=== PATIENT | female | born 1945 | race Hispanic/Latino ===

== ENCOUNTER 2018-09-01 02:00 | Emergency (ER) | payer MEDICARE ==
[~2018-09-01 02:00] MED LIST: AMLO5TAB7 PO; ARIP2TAB11 PO; BENA40TA9 PO; CHOL231P PO; ESCI20TA36 PO; GLIP-162 PO; LEVO200 PO; LINA5TAB PO; LOPE2CAP PO; METR-224 PO; VANC250C5 PO
[2018-09-01 03:15] LABS: APPEARANCE,URINE Cloudy (CLEAR); BILIRUBIN,URINE Negative (NEGATIVE); COLOR,URINE Yellow (YELLOW); GLUCOSE, URINE (UA) Negative (NEGATIVE); KETONES,URINE Negative (NEGATIVE); LEUKOCYTE ESTERASE ,URINE Large (NEGATIVE); NITRATE,URINE Negative (NEGATIVE); OCCULT BLOOD,URINE Negative (NEGATIVE); PROTEIN,URINE Negative (NEGATIVE)
[2018-09-01 03:28] LABS: BACTERIA,URINE Moderate /HPF (None Seen); MUCUS,URINE Moderate LPF (None Seen); SQUAMOUS EPITHELIAL CELL,UR Few /HPF (0-2)
[2018-09-01 03:31] LABS: BASOPHILS % (AUTO) 0.7 % (0.0-5.0); EOSINOPHILS % (AUTO) 3.2 % (0.0-8.0); HEMATOCRIT 30.4 % (36-48); LYMPHOCYTES % (AUTO) 38.5 % (21.0-51.0); MEAN CORPUSCULAR HGB CONC 32.7 g/dL (32.0-36.0); MEAN CORPUSCULAR VOLUME 88.7 fL (79-99); MONOCYTES % (AUTO) 9.1 % (3.0-13.0); NEUTROPHILS % (AUTO) 48.5 % (40.0-77.0); NUCLEATED RED BLOOD CELLS 0.1 % (0.0-0.19); PLATELET COUNT (AUTO) 151 K/uL (130-400); RED BLOOD CELL COUNT(AUTO) 3.43 MIL/uL (4.00-5.50); RED CELL DISTRIBUTION WIDTH 14.5 % (11.0-15.5); WHITE BLOOD COUNT (AUTO) 7.9 K/uL (4.8-10.8)
[2018-09-01] MEDS ORDERED: KETOROLAC TROMETHAMINE 15MG/ML ONE (03:36)
[2018-09-01 03:37] LABS: CREATININE 0.8 mg/dL (0.5-1.5); POTASSIUM 4.7 mmol/L (3.5-5.1)
[2018-09-01] MEDS ORDERED: METHYLPREDNISOLONE SOD SUCC 125MG/2ML VIAL ONE (03:37)
[2018-09-01 03:44] LABS: ALBUMIN 2.9 g/dL (3.5-5.0); BILIRUBIN,TOTAL 0.2 mg/dL (0.2-1.0); TOTAL PROTEIN, SERUM 7.8 g/dL (6.0-8.3)
[2018-09-01 03:45] LABS: INR 1.11 (0.85-1.15); PROTHROMBIN TIME 11.6 SEC (9.6-11.6)
== END 2018-09-01 04:37 | disposition home or self-care (01) ==
LOC: EDH 02:00
DX: M70.72 Other bursitis of hip, left hip (principal); M70.71 Other bursitis of hip, right hip; M54.5 Low back pain; E11.9 Type 2 diabetes mellitus without complications; I10 Essential (primary) hypertension; E07.9 Disorder of thyroid, unspecified; Z90.49 Acquired absence of other specified parts of digestive tract; Z90.710 Acquired absence of both cervix and uterus; Z88.2 Allergy status to sulfonamides; Z88.8 Allergy status to other drugs, medicaments and biological substances
CPT/HCPCS: 36415; 72100; 72170; 80053; 81001; 82550; 85025; 85610; 85730; 93005; 96374; 96375; 99284; A4218; J1885; J2930

== ENCOUNTER 2018-10-07 22:41 | Emergency (ER) | payer MEDICARE ==
[~2018-10-07 22:41] MED LIST changes: -AMLO5TAB7 PO; +AMLO5TAB9 PO; +METR-172 PO; -METR-224 PO
[2018-10-07] MEDS ORDERED: HYDROCODONE/ACETAMINOPHEN 10/325 MG TAB ONE (23:09)
== END 2018-10-07 23:16 | disposition home or self-care (01) ==
LOC: EDH 22:41
DX: E11.40 Type 2 diabetes mellitus with diabetic neuropathy, unspecified (principal); I10 Essential (primary) hypertension; E07.9 Disorder of thyroid, unspecified; Z88.2 Allergy status to sulfonamides; Z88.8 Allergy status to other drugs, medicaments and biological substances; Z90.710 Acquired absence of both cervix and uterus; Z98.890 Other specified postprocedural states
CPT/HCPCS: 99282

== ENCOUNTER 2019-10-13 18:12 | Emergency (ER) | payer MEDICARE ==
[~2019-10-13 18:12] MED LIST changes: -ARIP2TAB11 PO; +ARIP2TAB20 PO; -VANC250C5 PO; +VANC250C6 PO
[2019-10-13] MEDS ORDERED: MORPHINE SULFATE 4 MG/1ML SYG ONE (18:58)
[2019-10-13] MEDS ORDERED: ONDANSETRON HCL 4 MG/2 ML VIAL ONE (18:58)
[2019-10-13 19:28] LABS: BASOPHILS % (AUTO) 0.3 % (0.0-5.0); EOSINOPHILS % (AUTO) 1.7 % (0.0-8.0); HEMATOCRIT 34.9 % (36-48); LYMPHOCYTES % (AUTO) 34.7 % (21.0-51.0); MEAN CORPUSCULAR HGB CONC 31.5 g/dL (32.0-36.0); MEAN CORPUSCULAR VOLUME 85.7 fL (79-99); MONOCYTES % (AUTO) 7.3 % (3.0-13.0); NEUTROPHILS % (AUTO) 55.6 % (40.0-77.0); PLATELET COUNT (AUTO) 202 K/uL (130-400); RED BLOOD CELL COUNT(AUTO) 4.07 MIL/uL (4.00-5.50); RED CELL DISTRIBUTION WIDTH 13.6 % (11.0-15.5); WHITE BLOOD COUNT (AUTO) 9.5 K/uL (4.8-10.8)
[2019-10-13 19:36] LABS: INR 1.08 (0.85-1.15); PARTIAL THROMBOPLASTIN TIME 27.6 SEC (26.3-35.5); PROTHROMBIN TIME 11.3 SEC (9.6-11.6)
[2019-10-13 19:38] LABS: CREATININE 0.9 mg/dL (0.5-1.5); POTASSIUM 3.7 mmol/L (3.5-5.1)
[2019-10-13 19:43] LABS: ALBUMIN 3.3 g/dL (3.5-5.0); BILIRUBIN,TOTAL 0.6 mg/dL (0.2-1.0); TOTAL PROTEIN, SERUM 8.5 g/dL (6.0-8.3)
[2019-10-13] MEDS ORDERED: IOHEXOL-350 75 ML VIAL IV ONE (19:50)
[2019-10-13] MEDS ORDERED: FAMOTIDINE/PF 20 MG/2 ML VIAL IV ONE (20:58)
[2019-10-13] MEDS ORDERED: LABETALOL HCL 5 MG/ML 20ML VIAL IV ONE (20:58)
== END 2019-10-13 21:19 | disposition home or self-care (01) ==
LOC: EDH 18:12
DX: R10.10 Upper abdominal pain, unspecified (principal); I10 Essential (primary) hypertension; E11.9 Type 2 diabetes mellitus without complications; Z88.2 Allergy status to sulfonamides; Z88.8 Allergy status to other drugs, medicaments and biological substances; Z90.49 Acquired absence of other specified parts of digestive tract; Z90.710 Acquired absence of both cervix and uterus
CPT/HCPCS: 36415; 74177; 76705; 80053; 82550; 83690; 84484; 85025; 85610; 85730; 93005; 96374; 96375; 99285; J2270; J2405; J3490 ×2; Q9967

== ENCOUNTER 2019-10-18 16:49 | Emergency (ER) | payer MEDICARE ==
[2019-10-18 17:23] LABS: BASOPHILS % (AUTO) 0.4 % (0.0-5.0); EOSINOPHILS % (AUTO) 2.5 % (0.0-8.0); HEMATOCRIT 33.9 % (36-48); LYMPHOCYTES % (AUTO) 21.9 % (21.0-51.0); MEAN CORPUSCULAR HEMOGLOBIN 27.5 pg (27.0-33.0); MEAN CORPUSCULAR HGB CONC 32.2 g/dL (32.0-36.0); MEAN CORPUSCULAR VOLUME 85.6 fL (79-99); MONOCYTES % (AUTO) 7.3 % (3.0-13.0); NEUTROPHILS % (AUTO) 67.5 % (40.0-77.0); PLATELET COUNT (AUTO) 195 K/uL (130-400); RED BLOOD CELL COUNT(AUTO) 3.96 MIL/uL (4.00-5.50); RED CELL DISTRIBUTION WIDTH 13.6 % (11.0-15.5); WHITE BLOOD COUNT (AUTO) 10.1 K/uL (4.8-10.8)
[2019-10-18 17:26] LABS: CREATININE 0.8 mg/dL (0.5-1.5); POTASSIUM 5.1 mmol/L (3.5-5.1)
[2019-10-18 17:31] LABS: ALBUMIN 3.2 g/dL (3.5-5.0); BILIRUBIN,TOTAL 0.5 mg/dL (0.2-1.0); TOTAL PROTEIN, SERUM 8.4 g/dL (6.0-8.3)
[2019-10-18 17:38] LABS: APPEARANCE,URINE CLEAR (CLEAR); BILIRUBIN,URINE NEGATIVE (NEGATIVE); COLOR,URINE YELLOW (YELLOW); GLUCOSE, URINE (UA) NEGATIVE (NEGATIVE); KETONES,URINE NEGATIVE (NEGATIVE); LEUKOCYTE ESTERASE ,URINE LARGE (NEGATIVE); NITRATE,URINE POSITIVE (NEGATIVE); OCCULT BLOOD,URINE SMALL (NEGATIVE); PH,URINE 7.5 (5.0-8.0); PROTEIN,URINE TRACE mg/dL (NEGATIVE); UROBILINOGEN,URINE 0.2 mg/dL (0.2-1.0)
[2019-10-18] MEDS ORDERED: LIDOCAINE HCL 2% VISCOUS 15 ML UDCUP ONE (17:41)
[2019-10-18 17:58] LABS: BACTERIA,URINE Moderate /HPF (None Seen); SQUAMOUS EPITHELIAL CELL,UR Few /HPF (0-2)
[2019-10-18] MEDS ORDERED: SODIUM CHLORIDE 0.9% 50 ML IV ONE (19:24)
[2019-10-18] MEDS ORDERED: CEFTRIAXONE SODIUM 1 GM ONE (19:25)
[2019-10-18] MEDS ORDERED: KETOROLAC TROMETHAMINE 15MG/ML ONE (19:29)
== END 2019-10-18 20:48 | disposition home or self-care (01) ==
LOC: EDH 16:49
DX: N39.0 Urinary tract infection, site not specified (principal); E11.9 Type 2 diabetes mellitus without complications; I10 Essential (primary) hypertension; E07.9 Disorder of thyroid, unspecified; Z90.49 Acquired absence of other specified parts of digestive tract; Z90.710 Acquired absence of both cervix and uterus; Z88.2 Allergy status to sulfonamides; Z88.8 Allergy status to other drugs, medicaments and biological substances
CPT/HCPCS: 36415; 80053; 81001; 85025; 87077; 87088; 87186; 96374; 96375; 99284; J0696; J1885

== ENCOUNTER 2022-01-23 14:08 | Emergency (ER) | payer MEDICARE ==
[~2022-01-23] VITALS: Ht 165.1 cm; Wt 87.1 kg
[~2022-01-23 14:08] MED LIST changes: +AMLO-257 PO; -AMLO5TAB9 PO; -BENA40TA9 PO; +BENA40TA92 PO; -ESCI20TA36 PO; +ESCI20TA38 PO
[2022-01-23] MEDS ORDERED: 0.9%NACL 1000ML 1,000 ML IV SCH (14:30)
[2022-01-23] MEDS ORDERED: PROMETHAZINE HCL 25 MG/ML 1ML AMPULE IM ONE (14:30)
[2022-01-23] MEDS ORDERED: KETOROLAC 15MG/ML VIAL (15MG/ML) IV ONE (14:30)
[2022-01-23] MEDS ORDERED: CYCLOBENZAPRINE HCL 10 MG TABLET PO ONE (14:30)
[2022-01-23] MEDS ORDERED: ACETAMINOPHEN 500 MG TABLET PO ONE (14:30)
[2022-01-23 14:41] LABS: APPEARANCE,URINE Clear (CLEAR); BILIRUBIN,URINE Negative (NEGATIVE); COLOR,URINE Yellow (YELLOW); GLUCOSE, URINE (UA) Negative (NEGATIVE); KETONES,URINE Trace mg/dL (NEGATIVE); LEUKOCYTE ESTERASE ,URINE Moderate (NEGATIVE); NITRATE,URINE Negative (NEGATIVE); OCCULT BLOOD,URINE Negative (NEGATIVE); PH,URINE 5.5 (5.0-8.0); PROTEIN,URINE POS 2+ mg/dL (NEGATIVE)
[2022-01-23 14:49] LABS: BASOPHILS % (AUTO) 0.4 % (0.0-5.0); EOSINOPHILS % (AUTO) 1.7 % (0.0-8.0); LYMPHOCYTES % (AUTO) 22.3 % (21.0-51.0); MEAN CORPUSCULAR HEMOGLOBIN 29.1 pg (27.0-33.0); MEAN CORPUSCULAR HGB CONC 32.2 g/dL (32.0-36.0); MEAN CORPUSCULAR VOLUME 90.5 fL (79-99); MONOCYTES % (AUTO) 7.1 % (3.0-13.0); PLATELET COUNT (AUTO) 157 K/uL (130-400); RED BLOOD CELL COUNT(AUTO) 4.09 MIL/uL (4.00-5.50); RED CELL DISTRIBUTION WIDTH 13.5 % (11.0-15.5); WHITE BLOOD COUNT (AUTO) 10.2 K/uL (4.8-10.8)
[2022-01-23 14:59] LABS: RBC,URINE 0-1 /HPF (0-1)
[2022-01-23 15:00] LABS: CREATININE 1.1 mg/dL (0.5-1.5); POTASSIUM 4.3 mmol/L (3.5-5.1)
[2022-01-23 15:00] LABS: BACTERIA,URINE Few /HPF (None Seen); SQUAMOUS EPITHELIAL CELL,UR Few /HPF (0-2)
[2022-01-23 15:08] LABS: ALBUMIN 3.3 g/dL (3.5-5.0); BILIRUBIN,TOTAL 0.5 mg/dL (0.2-1.0); CRP QUANTITATIVE 8.8 mg/L (0.00-9.0); TOTAL PROTEIN, SERUM 7.9 g/dL (6.0-8.3)
[2022-01-23] MEDS ORDERED: ONDANSETRON 4MG INJ ONE (16:15)
[2022-01-23] MEDS ORDERED: CEFTRIAXONE 1G VIAL ONE (16:16)
[2022-01-23] MEDS ORDERED: ONDANSETRON 4MG INJ IVP ONE (16:30)
[2022-01-23] MEDS ORDERED: NIFEDIPINE 10 MG CAP PO ONE (16:30)
[2022-01-23] MEDS ORDERED: CEFTRIAXONE 1G VIAL IVP ONE (16:30)
[2022-01-23] MEDS ORDERED: CEPH500B PO (17:28)
[2022-01-23] MEDS ORDERED: ACET-2247 PO (17:28)
[2022-01-23] MEDS ORDERED: CYCL10TA16 PO (17:28)
[2022-01-23 17:37] VITALS: BP 156/89
== END 2022-01-23 18:39 | disposition home or self-care (01) ==
LOC: EDH 14:08
DX: G44.209 Tension-type headache, unspecified, not intractable (principal); N39.0 Urinary tract infection, site not specified; E66.9 Obesity, unspecified; I10 Essential (primary) hypertension; R11.2 Nausea with vomiting, unspecified; E11.9 Type 2 diabetes mellitus without complications; Z90.710 Acquired absence of both cervix and uterus; Z90.49 Acquired absence of other specified parts of digestive tract; Z88.2 Allergy status to sulfonamides; Z88.8 Allergy status to other drugs, medicaments and biological substances; Z79.899 Other long term (current) drug therapy
CPT/HCPCS: 36415; 70450; 80053; 81001; 84484; 85025; 86140; 87088; 96361; 96372; 96374; 96375; 99285; J0696; J1885; J2405; J2550; J7030

== ENCOUNTER 2022-09-18 08:22 | Emergency (ER) | payer MEDICARE ==
[~2022-09-18] VITALS: Ht 157.5 cm; Wt 77.1 kg
[~2022-09-18 08:22] MED LIST changes: +ACET-2247 PO; +CEPH500B PO; +CYCL10TA16 PO
[2022-09-18 08:59] LABS: BASOPHILS % (AUTO) 0.5 % (0.0-5.0); EOSINOPHILS % (AUTO) 0.7 % (0.0-8.0); HEMATOCRIT 37.5 % (36-48); LYMPHOCYTES % (AUTO) 18.3 % (21.0-51.0); MEAN CORPUSCULAR HEMOGLOBIN 28.3 pg (27.0-33.0); MEAN CORPUSCULAR HGB CONC 33.9 g/dL (32.0-36.0); MEAN CORPUSCULAR VOLUME 83.7 fL (79-99); MONOCYTES % (AUTO) 6.9 % (3.0-13.0); NEUTROPHILS % (AUTO) 69.8 % (40.0-77.0); PLATELET COUNT (AUTO) 153 K/uL (130-400); RED BLOOD CELL COUNT(AUTO) 4.48 MIL/uL (4.00-5.50); RED CELL DISTRIBUTION WIDTH 13.2 % (11.0-15.5); WHITE BLOOD COUNT (AUTO) 14.3 K/uL (4.8-10.8)
[2022-09-18 09:04] LABS: POTASSIUM 3.6 mmol/L (3.5-5.1)
[2022-09-18 09:11] LABS: ALBUMIN 2.6 g/dL (3.5-5.0); TOTAL PROTEIN, SERUM 6.6 g/dL (6.0-8.3)
[2022-09-18 09:23] LABS: INR 1.07 (0.85-1.15); PROTHROMBIN TIME 11.6 SEC (9.6-11.6)
[2022-09-18 09:34] LABS: B-TYPE NATRIURETIC PEPTIDE 46 pg/mL (0-100)
[2022-09-18 10:13] LABS: APPEARANCE,URINE CLEAR (CLEAR); BILIRUBIN,URINE NEGATIVE (NEGATIVE); COLOR,URINE COLORLESS (YELLOW); GLUCOSE, URINE (UA) NEGATIVE (NEGATIVE); KETONES,URINE NEGATIVE (NEGATIVE); LEUKOCYTE ESTERASE ,URINE NEGATIVE Leu/uL (NEGATIVE); NITRATE,URINE NEGATIVE (NEGATIVE); OCCULT BLOOD,URINE NEGATIVE (NEGATIVE); PH,URINE 5.5 (5.0-8.0); PROTEIN,URINE 20 mg/dL (NEGATIVE); UROBILINOGEN,URINE 0.2 mg/dL (0.2-1.0)
[2022-09-18] MEDS ORDERED: 0.9%NACL 1000ML 1,000 ML IV ONE (10:30)
[2022-09-18] MEDS ORDERED: IOHEXOL 350 MG/ML 100ML INFUS..BTL IV ONE (13:01)
[2022-09-18] MEDS ORDERED: NIRM1TAB PO (14:29)
[2022-09-18 14:59] VITALS: BP 158/77
== END 2022-09-18 15:01 | disposition home or self-care (01) ==
LOC: EDH 08:22
DX: U07.1 COVID-19 (principal); Q79.1 Other congenital malformations of diaphragm; M79.7 Fibromyalgia; E66.9 Obesity, unspecified; E11.9 Type 2 diabetes mellitus without complications; I10 Essential (primary) hypertension; Z90.710 Acquired absence of both cervix and uterus; Z90.49 Acquired absence of other specified parts of digestive tract; Z79.899 Other long term (current) drug therapy; Z98.890 Other specified postprocedural states; Z88.2 Allergy status to sulfonamides; Z88.8 Allergy status to other drugs, medicaments and biological substances
CPT/HCPCS: 99285; 96360; 71270; 71045; 87635; 82550; 84484; 80053; 83880; 85025; 85378; 85610; 81003; 36415; 93005; C9803; Q9967

== ENCOUNTER → 2022-12-18 | Outpatient (CLI) | payer MEDICARE ==
[~2022-12-18] MED LIST changes: +NIRM1TAB PO
== END | disposition home or self-care (01) ==
LOC: SHCH 11:02
PROVIDERS: ATTEND Internal Medicine Cardiovascular Disease
DX: I08.3 Combined rheumatic disorders of mitral, aortic and tricuspid valves (principal); I11.9 Hypertensive heart disease without heart failure; I87.2 Venous insufficiency (chronic) (peripheral); E11.9 Type 2 diabetes mellitus without complications; E78.5 Hyperlipidemia, unspecified; R60.9 Edema, unspecified
CPT/HCPCS: 93306

== ENCOUNTER 2023-02-14 12:29 | Emergency (ER) | payer MEDICARE ==
[~2023-02-14] VITALS: Ht 157.5 cm; Wt 75.7 kg
[~2023-02-14 12:29] MED LIST changes: -ACET-2247 PO; -AMLO-257 PO; -ARIP2TAB20 PO; +ATOR20TA65 PO; -BENA40TA92 PO; -CEPH500B PO; -CHOL231P PO; -CYCL10TA16 PO; +DICL100G32 TP; -ESCI20TA38 PO; +FURO20TA6 PO; +GABA300C PO; -GLIP-162 PO; +INSU100I3 SQ; +LEVO-70 PO; -LEVO200 PO; +LEVO200C2 PO; +LEVO25CA4 PO; -LOPE2CAP PO; +LOSA25TA2 PO; -METR-172 PO; +NIFE90TA65 PO; -NIRM1TAB PO; +OMEP20TA2 PO; +TIZA-211 PO; -VANC250C6 PO; +[UNRECOGNIZED DRUG - OTHER] PO
[2023-02-14 13:18] LABS: BASOPHILS % (AUTO) 0.2 % (0.0-5.0); EOSINOPHILS % (AUTO) 0.6 % (0.0-8.0); HEMATOCRIT 35.1 % (36-48); LYMPHOCYTES % (AUTO) 13.7 % (21.0-51.0); MEAN CORPUSCULAR HEMOGLOBIN 29.1 pg (27.0-33.0); MEAN CORPUSCULAR HGB CONC 33.6 g/dL (32.0-36.0); MEAN CORPUSCULAR VOLUME 86.7 fL (79-99); MONOCYTES % (AUTO) 5.7 % (3.0-13.0); NEUTROPHILS % (AUTO) 79.5 % (40.0-77.0); PLATELET COUNT (AUTO) 242 K/uL (130-400); RED BLOOD CELL COUNT(AUTO) 4.05 MIL/uL (4.00-5.50); RED CELL DISTRIBUTION WIDTH 13.6 % (11.0-15.5)
[2023-02-14] MEDS ORDERED: ONDANSETRON 4MG INJ IVP ONE (13:30)
[2023-02-14] MEDS ORDERED: MORPHINE 2 MG SYG IVP ONE (13:30)
[2023-02-14 13:35] LABS: ALANINE AMINOTRANSFERASE 20 U/L (12-78); ALBUMIN 3.3 g/dL (3.5-5.0); ASPARTATE AMINOTRANSFERASE 34 U/L (10-37); CARBON DIOXIDE 24 mmol/L (21-32); CHLORIDE 105 mmol/L (101-111); CREATININE 0.8 mg/dL (0.5-1.5); GLOMERULAR FILTR. RATE CALC 75 mL/min (>90); GLUCOSE,RANDOM 179 mg/dL (70-105); POTASSIUM 3.5 mmol/L (3.5-5.1); SODIUM SERUM 141 mmol/L (136-145); TOTAL PROTEIN, SERUM 8.5 g/dL (6.0-8.3); UREA NITROGEN, BLOOD 14 mg/dL (7-18)
[2023-02-14 13:37] LABS: LIPASE < 50 U/L (114-286)
[2023-02-14 14:44] LABS: APPEARANCE,URINE CLEAR (CLEAR); BILIRUBIN,URINE NEGATIVE (NEGATIVE); COLOR,URINE COLORLESS (YELLOW); GLUCOSE, URINE (UA) NEGATIVE (NEGATIVE); KETONES,URINE NEGATIVE (NEGATIVE); LEUKOCYTE ESTERASE ,URINE NEGATIVE Leu/uL (NEGATIVE); NITRATE,URINE NEGATIVE (NEGATIVE); OCCULT BLOOD,URINE NEGATIVE (NEGATIVE); PH,URINE 7.5 (5.0-8.0); PROTEIN,URINE 30 mg/dL (NEGATIVE); UROBILINOGEN,URINE 0.2 mg/dL (0.2-1.0)
[2023-02-14 14:51] LABS: SQUAMOUS EPITHELIAL CELL,UR RARE /HPF (0-2); WBC,URINE 0-1 /HPF (0-1)
[2023-02-14 15:10] VITALS: BP 161/78
[2023-02-14] MEDS ORDERED: LACT10SO5 PO (15:12)
== END 2023-02-14 15:21 | disposition home or self-care (01) ==
LOC: EDH 12:29
DX: K59.00 Constipation, unspecified (principal); R10.13 Epigastric pain; E11.40 Type 2 diabetes mellitus with diabetic neuropathy, unspecified; E66.9 Obesity, unspecified; M79.7 Fibromyalgia; Z79.84 Long term (current) use of oral hypoglycemic drugs; Z79.899 Other long term (current) drug therapy; Z98.890 Other specified postprocedural states; Z90.49 Acquired absence of other specified parts of digestive tract; Z90.710 Acquired absence of both cervix and uterus; Z88.2 Allergy status to sulfonamides; Z88.6 Allergy status to analgesic agent; Z88.8 Allergy status to other drugs, medicaments and biological substances
CPT/HCPCS: 99285; 84484; 80053; 83690; 85025; 81001; 36415; 74176; 96374; 96375; 93005; J2405

== ENCOUNTER 2023-08-13 19:25 | Emergency (ER) | payer MEDICARE ==
[~2023-08-13] VITALS: Ht 157.5 cm; Wt 77.1 kg
[~2023-08-13 19:25] MED LIST changes: +ALPR2TAB7 PO; -DICL100G32 TP; -FURO20TA6 PO; -LEVO-70 PO; +LOSA-417 PO; -LOSA25TA2 PO; +SUCR1TAB2 PO; -TIZA-211 PO; -[UNRECOGNIZED DRUG - OTHER] PO
[2023-08-13 22:30] LABS: ADD UA MICROSCOPIC YES; APPEARANCE,URINE CLEAR (CLEAR); BILIRUBIN,URINE NEGATIVE (NEGATIVE); COLOR,URINE LIGHT-YELLOW (YELLOW); GLUCOSE, URINE (UA) NEGATIVE (NEGATIVE); KETONES,URINE NEGATIVE (NEGATIVE); LEUKOCYTE ESTERASE ,URINE NEGATIVE Leu/uL (NEGATIVE); NITRATE,URINE NEGATIVE (NEGATIVE); OCCULT BLOOD,URINE NEGATIVE (NEGATIVE); PH,URINE 6.5 (5.0-8.0); PROTEIN,URINE 20 mg/dL (NEGATIVE); UROBILINOGEN,URINE 0.2 mg/dL (0.2-1.0)
[2023-08-13 22:31] LABS: RBC,URINE 0-1 /HPF (0-1); WBC,URINE 0-1 /HPF (0-1)
[2023-08-13 22:34] LABS: RAPID GROUP A STREP negative (NEGATIVE)
[2023-08-13 22:40] LABS: SARS-CoV-2, RNA, NAAT NEGATIVE SARS CoV-2 (NEGATIVE)
[2023-08-13 22:43] LABS: INFLUENZA TYPE A Negative For Type A (NEGATIVE); INFLUENZA TYPE B Negative For Type B (NEGATIVE)
[2023-08-13 23:24] LABS: BASOPHILS # (AUTO) 0.04 K/uL (0.00-0.20); BASOPHILS % (AUTO) 0.4 % (0.0-5.0); EOSINOPHILS # (AUTO) 0.13 K/uL (0.00-0.70); EOSINOPHILS % (AUTO) 1.2 % (0.0-8.0); HEMATOCRIT 34.1 % (36-48); IMMATURE GRANULOCYTE ABSOLUTE 0.09 K/uL (0-1); LYMPHOCYTES # (AUTO) 2.3 K/uL (1.0-4.8); LYMPHOCYTES % (AUTO) 21.6 % (21.0-51.0); MEAN CORPUSCULAR HEMOGLOBIN 29.8 pg (27.0-33.0); MEAN CORPUSCULAR VOLUME 87.7 fL (79-99); MONOCYTES # (AUTO) 0.9 K/uL (0.1-1.0); MONOCYTES % (AUTO) 8.3 % (3.0-13.0); NEUTROPHILS # (AUTO) 7.2 K/uL (1.8-7.7); NEUTROPHILS % (AUTO) 67.7 % (40.0-77.0); PLATELET COUNT (AUTO) 202 K/uL (130-400); RED BLOOD CELL COUNT(AUTO) 3.89 MIL/uL (4.00-5.50); RED CELL DISTRIBUTION WIDTH 13.2 % (11.0-15.5); WHITE BLOOD COUNT (AUTO) 10.7 K/uL (4.8-10.8)
[2023-08-13] MEDS ORDERED: IPRATROPIUM/ALBUTEROL SULFATE 3 ML SOLUTION IH ONE (23:30)
[2023-08-13 23:40] LABS: POTASSIUM 4.4 mmol/L (3.5-5.1)
[2023-08-13 23:50] LABS: BILIRUBIN,TOTAL 0.6 mg/dL (0.2-1.0); TOTAL PROTEIN, SERUM 8.3 g/dL (6.0-8.3)
[2023-08-14 00:22] VITALS: PULSE 84; RESP 20
[2023-08-14 00:42] VITALS: BP 127/50; PULSE 76; RESP 20; O2SAT 97
[2023-08-14] MEDS ORDERED: PRED20TA3 PO (00:50)
[2023-08-14] MEDS ORDERED: CEFU500T67 PO (00:50)
[2023-08-14] MEDS ORDERED: ALBU90AE2 IH (00:50)
== END 2023-08-14 02:17 | disposition home or self-care (01) ==
LOC: EDH 19:25
DX: J20.9 Acute bronchitis, unspecified (principal); E11.9 Type 2 diabetes mellitus without complications; E78.00 Pure hypercholesterolemia, unspecified; I10 Essential (primary) hypertension; M79.7 Fibromyalgia; Z79.84 Long term (current) use of oral hypoglycemic drugs; Z79.890 Hormone replacement therapy; Z79.899 Other long term (current) drug therapy; Z88.2 Allergy status to sulfonamides; Z88.6 Allergy status to analgesic agent; Z20.822 Contact with and (suspected) exposure to COVID-19
CPT/HCPCS: 99284; 71045; 87635; 83735; 84484; 80053; 83880; 85025; 87040 ×2; 87880; 87804 ×2; 83605; 81001; 36415; 94640; C9803

== ENCOUNTER 2023-09-06 18:39 | Emergency (ER) | payer MEDICARE ==
[~2023-09-06] VITALS: Ht 157.5 cm; Wt 78.9 kg
[~2023-09-06 18:39] MED LIST changes: +ALBU90AE2 IH; +CEFU500T67 PO; +PRED20TA3 PO
[2023-09-06 19:52] LABS: APPEARANCE,URINE CLEAR (CLEAR); BILIRUBIN,URINE NEGATIVE (NEGATIVE); COLOR,URINE LIGHT-YELLOW (YELLOW); GLUCOSE, URINE (UA) NEGATIVE (NEGATIVE); KETONES,URINE NEGATIVE (NEGATIVE); LEUKOCYTE ESTERASE ,URINE 250 Leu/uL (NEGATIVE); NITRATE,URINE NEGATIVE (NEGATIVE); OCCULT BLOOD,URINE NEGATIVE (NEGATIVE); PH,URINE 5.5 (5.0-8.0); PROTEIN,URINE 10 mg/dL (NEGATIVE); UROBILINOGEN,URINE 0.2 mg/dL (0.2-1.0)
[2023-09-06 19:54] LABS: ADD UA MICROSCOPIC YES
[2023-09-06 19:58] LABS: BACTERIA,URINE RARE /HPF (None Seen); MUCUS,URINE RARE LPF (None Seen); SARS-CoV-2, RNA, NAAT NEGATIVE SARS CoV-2 (NEGATIVE); SQUAMOUS EPITHELIAL CELL,UR MOD /HPF (0-2); TRANSITIONAL EPI CELLS,URINE RARE /HPF (None Seen)
[2023-09-06 20:02] LABS: INFLUENZA TYPE A Negative For Type A (NEGATIVE); INFLUENZA TYPE B Negative For Type B (NEGATIVE)
[2023-09-06 20:11] LABS: BASOPHILS # (AUTO) 0.03 K/uL (0.00-0.20); BASOPHILS % (AUTO) 0.3 % (0.0-5.0); EOSINOPHILS # (AUTO) 0.15 K/uL (0.00-0.70); EOSINOPHILS % (AUTO) 1.6 % (0.0-8.0); HEMATOCRIT 28.4 % (36-48); IMMATURE GRANULOCYTE ABSOLUTE 0.09 K/uL (0-1); LYMPHOCYTES # (AUTO) 1.5 K/uL (1.0-4.8); LYMPHOCYTES % (AUTO) 16.2 % (21.0-51.0); MEAN CORPUSCULAR HEMOGLOBIN 30.4 pg (27.0-33.0); MEAN CORPUSCULAR HGB CONC 33.5 g/dL (32.0-36.0); MONOCYTES % (AUTO) 10.5 % (3.0-13.0); NEUTROPHILS # (AUTO) 6.5 K/uL (1.8-7.7); NEUTROPHILS % (AUTO) 70.4 % (40.0-77.0); PLATELET COUNT (AUTO) 191 K/uL (130-400); RED BLOOD CELL COUNT(AUTO) 3.12 MIL/uL (4.00-5.50); RED CELL DISTRIBUTION WIDTH 13.9 % (11.0-15.5); WHITE BLOOD COUNT (AUTO) 9.3 K/uL (4.8-10.8)
[2023-09-06 20:19] LABS: POTASSIUM 4.1 mmol/L (3.5-5.1)
[2023-09-06 20:26] LABS: BILIRUBIN,TOTAL 0.5 mg/dL (0.2-1.0); TOTAL PROTEIN, SERUM 7.9 g/dL (6.0-8.3)
[2023-09-06 20:34] LABS: B-TYPE NATRIURETIC PEPTIDE 152 pg/mL (0-100)
[2023-09-06] MEDS ORDERED: IPRATROPIUM/ALBUTEROL SULFATE 3 ML SOLUTION IH ONE (21:00)
[2023-09-06] MEDS ORDERED: ACETAMINOPHEN 500 MG TABLET PO ONE (21:00)
[2023-09-06 21:04] VITALS: PULSE 87; RESP 20
[2023-09-06] MEDS ORDERED: CEFTRIAXONE 1G VIAL IVPB ONE (21:30)
[2023-09-06] MEDS ORDERED: 0.9%NACL 1000ML 1,000 ML IV ONE (21:30)
[2023-09-06] MEDS ORDERED: BROM118S48 PO (21:55)
[2023-09-06] MEDS ORDERED: PRED20TA3 PO (21:55)
[2023-09-06] MEDS ORDERED: CEFD300C3 PO (21:55)
[2023-09-06 22:39] VITALS: BP 152/75; PULSE 95; RESP 17; O2SAT 95
== END 2023-09-06 22:41 | disposition home or self-care (01) ==
LOC: EDH 18:46
DX: N39.0 Urinary tract infection, site not specified (principal); J20.9 Acute bronchitis, unspecified; J06.9 Acute upper respiratory infection, unspecified; I10 Essential (primary) hypertension; E78.00 Pure hypercholesterolemia, unspecified; E11.9 Type 2 diabetes mellitus without complications; M79.7 Fibromyalgia; Z88.2 Allergy status to sulfonamides; Z88.6 Allergy status to analgesic agent; Z79.899 Other long term (current) drug therapy; Z79.4 Long term (current) use of insulin; Z20.822 Contact with and (suspected) exposure to COVID-19
CPT/HCPCS: 99285; 96365; 71045; 87635; 82550; 84484; 80053; 83880; 85025; 87088; 87804 ×2; 81001; 36415; 93005; 94640; C9803; J7030; J0696

== ENCOUNTER 2023-11-04 13:37 | Emergency (ER) | payer MEDICARE ==
[~2023-11-04] VITALS: Ht 157.5 cm; Wt 81.6 kg
[~2023-11-04 13:37] MED LIST changes: -ALBU90AE2 IH; -CEFU500T67 PO; +FLUC150T48 PO; -GABA300C PO; +HYDR-3421 PO; +HYDR-4068 PO; -INSU100I3 SQ; -LEVO200C2 PO; +LEVO200T10 PO; -LEVO25CA4 PO; +LEVO25TA54 PO; +MIRT-22 PO; -OMEP20TA2 PO; -PRED20TA3 PO; -SUCR1TAB2 PO; +TIZA-211 PO; +TIZA4CAP8 PO
[2023-11-04 17:13] LABS: BASOPHILS # (AUTO) 0.02 K/uL (0.00-0.20); BASOPHILS % (AUTO) 0.2 % (0.0-5.0); EOSINOPHILS # (AUTO) 0.15 K/uL (0.00-0.70); EOSINOPHILS % (AUTO) 1.6 % (0.0-8.0); HEMATOCRIT 22.8 % (36-48); IMMATURE GRANULOCYTE ABSOLUTE 0.04 K/uL (0-1); LYMPHOCYTES # (AUTO) 2.1 K/uL (1.0-4.8); LYMPHOCYTES % (AUTO) 21.5 % (21.0-51.0); MEAN CORPUSCULAR HEMOGLOBIN 28.6 pg (27.0-33.0); MEAN CORPUSCULAR HGB CONC 34.2 g/dL (32.0-36.0); MEAN CORPUSCULAR VOLUME 83.5 fL (79-99); MONOCYTES # (AUTO) 2.6 K/uL (0.1-1.0); MONOCYTES % (AUTO) 27.1 % (3.0-13.0); NEUTROPHILS # (AUTO) 4.7 K/uL (1.8-7.7); NEUTROPHILS % (AUTO) 49.2 % (40.0-77.0); PLATELET COUNT (AUTO) 136 K/uL (130-400); RED BLOOD CELL COUNT(AUTO) 2.73 MIL/uL (4.00-5.50); RED CELL DISTRIBUTION WIDTH 13.5 % (11.0-15.5); WHITE BLOOD COUNT (AUTO) 9.6 K/uL (4.8-10.8)
[2023-11-04 17:27] LABS: CREATININE 1.6 mg/dL (0.5-1.5)
[2023-11-04 17:30] LABS: TOTAL PROTEIN, SERUM 7.4 g/dL (6.0-8.3)
[2023-11-04 17:49] LABS: INR 1.09 (0.85-1.15); PROTHROMBIN TIME 12.6 SEC (9.6-11.6)
[2023-11-04] MEDS: ONDANSETRON 4MG INJ IVP ONE (18:00)
[2023-11-04] MEDS: MORPHINE 2 MG SYG IVP ONE (18:01)
[2023-11-04] MEDS ORDERED: ACET-66 PO (18:21)
[2023-11-04 18:49] VITALS: BP 139/86; PULSE 89; RESP 18; O2SAT 98
== END 2023-11-04 18:47 | disposition home or self-care (01) ==
LOC: EDH 13:37
DX: S00.03XA Contusion of scalp, initial encounter (principal); M54.2 Cervicalgia; M25.551 Pain in right hip; M79.601 Pain in right arm; W18.39XA Other fall on same level, initial encounter; Y93.89 Activity, other specified; Y92.89 Other specified places as the place of occurrence of the external cause; Y99.8 Other external cause status
CPT/HCPCS: 99285; 70450; 96374; 96375; 80053; 85025; 85610; 87880; 36415; 73060; 73502; 72125; 72192; J2270; J2405

== ENCOUNTER 2023-11-17 08:57 | Emergency (ER) | payer MEDICARE ==
[~2023-11-17] VITALS: Ht 157.5 cm; Wt 81.6 kg
[~2023-11-17 08:57] MED LIST changes: +ACET-66 PO
[2023-11-17 09:25] LABS: BASOPHILS # (AUTO) 0.03 K/uL (0.00-0.20); BASOPHILS % (AUTO) 0.3 % (0.0-5.0); EOSINOPHILS # (AUTO) 0.13 K/uL (0.00-0.70); EOSINOPHILS % (AUTO) 1.4 % (0.0-8.0); HEMATOCRIT 23.5 % (36-48); IMMATURE GRANULOCYTE ABSOLUTE 0.07 K/uL (0-1); LYMPHOCYTES # (AUTO) 1.3 K/uL (1.0-4.8); LYMPHOCYTES % (AUTO) 13.8 % (21.0-51.0); MEAN CORPUSCULAR HEMOGLOBIN 29.6 pg (27.0-33.0); MEAN CORPUSCULAR HGB CONC 35.3 g/dL (32.0-36.0); MEAN CORPUSCULAR VOLUME 83.9 fL (79-99); MONOCYTES # (AUTO) 0.8 K/uL (0.1-1.0); NEUTROPHILS # (AUTO) 6.7 K/uL (1.8-7.7); NEUTROPHILS % (AUTO) 74.7 % (40.0-77.0); PLATELET COUNT (AUTO) 198 K/uL (130-400)
[2023-11-17] MEDS: ALBUTEROL 0.083% 2.5 MG/3 ML INH IH ONE (09:29)
[2023-11-17 09:30] VITALS: PULSE 85; RESP 20
[2023-11-17] MEDS: GUAIFENESIN 600 MG TABLET.ER PO ONE (09:32)
[2023-11-17 09:34] LABS: ALBUMIN 3.2 g/dL (3.5-5.0); BILIRUBIN,TOTAL 0.7 mg/dL (0.2-1.0); CREATININE 1.7 mg/dL (0.5-1.5); POTASSIUM 3.8 mmol/L (3.5-5.1); TOTAL PROTEIN, SERUM 7.7 g/dL (6.0-8.3)
[2023-11-17] MEDS: MAG/ALUM/SIMETH 30 ML UDCUP PO ONE (10:05)
[2023-11-17] MEDS: FAMOTIDINE 20MG VIAL IV ONE (10:05)
[2023-11-17] MEDS: 0.9%NACL 1000ML 1,000 ML IV ONE (10:05)
[2023-11-17] MEDS: LIDOCAINE HCL 2% VISCOUS 15 ML UDCUP PO ONE (10:05)
[2023-11-17] MEDS: MORPHINE 2 MG SYG IVP ONE (10:12)
[2023-11-17 10:15] LABS: COVID19 (SARS ANTIGEN RAPID) PRESUMPTIVE NEGATIVE (NEGATIVE)
[2023-11-17 10:16] LABS: INFLUENZA TYPE A Negative For Type A (NEGATIVE); INFLUENZA TYPE B Negative For Type B (NEGATIVE); RSV negative (NEGATIVE)
[2023-11-17 10:26] LABS: RAPID GROUP A STREP negative (NEGATIVE)
[2023-11-17 11:44] LABS: APPEARANCE,URINE CLOUDY (CLEAR); BILIRUBIN,URINE NEGATIVE (NEGATIVE); COLOR,URINE LIGHT-YELLOW (YELLOW); GLUCOSE, URINE (UA) NEGATIVE (NEGATIVE); KETONES,URINE NEGATIVE (NEGATIVE); LEUKOCYTE ESTERASE ,URINE 250 Leu/uL (NEGATIVE); NITRATE,URINE NEGATIVE (NEGATIVE); OCCULT BLOOD,URINE NEGATIVE (NEGATIVE); PROTEIN,URINE NEGATIVE (NEGATIVE); UROBILINOGEN,URINE 0.2 mg/dL (0.2-1.0)
[2023-11-17 11:55] LABS: ADD UA MICROSCOPIC YES
[2023-11-17 12:03] LABS: BACTERIA,URINE RARE /HPF (None Seen); RBC,URINE 0-1 /HPF (0-1); SQUAMOUS EPITHELIAL CELL,UR RARE /HPF (0-2); TRANSITIONAL EPI CELLS,URINE RARE /HPF (None Seen); WBC CLUMP FEW /HPF (0-1)
[2023-11-17] MEDS ORDERED: GUAI600T50 PO (12:19)
[2023-11-17] MEDS ORDERED: CEPH500T PO (12:19)
[2023-11-17] MEDS ORDERED: AUD IH (12:19)
[2023-11-17] MEDS: CEFTRIAXONE 2GM VIAL IVPB ONE (12:24)
[2023-11-17 13:18] VITALS: BP 130/54; PULSE 78; RESP 18; O2SAT 99
== END 2023-11-17 13:50 | disposition home or self-care (01) ==
LOC: EDH 08:57
DX: J20.9 Acute bronchitis, unspecified (principal); N39.0 Urinary tract infection, site not specified; E11.40 Type 2 diabetes mellitus with diabetic neuropathy, unspecified; I10 Essential (primary) hypertension; M79.7 Fibromyalgia; Z79.84 Long term (current) use of oral hypoglycemic drugs; Z79.899 Other long term (current) drug therapy; Z88.2 Allergy status to sulfonamides; Z88.6 Allergy status to analgesic agent; Z20.822 Contact with and (suspected) exposure to COVID-19
CPT/HCPCS: 99285; 74176; 96365; 71045; 96375; 87426; 84484; 80053; 83690; 85025; 87071; 87077 ×2; 87088; 87186 ×2; 87880; 87205; 87807; 87804 ×2; 83605; 81001; 36415; 93005; 94640; J3490; J2270; J0696

== ENCOUNTER 2025-03-12 23:55 | Inpatient (IN) | payer MEDICARE, MEDICAID ==
[~2025-03-12] VITALS: Ht 160 cm; Wt 87.5 kg
[~2025-03-12 23:55] MED LIST changes: -ACET-66 PO; -ALPR2TAB7 PO; -ATOR20TA65 PO; +ESCI-8 PO; -FLUC150T48 PO; -HYDR-3421 PO; +HYDR-4060 PO; -HYDR-4068 PO; -LOSA-417 PO; +LOSA50TA64 PO; +PRED20TA3 PO; -TIZA-211 PO
--- NOTE | 2025-03-12 23:59 | NUR ---
PT PLACED IN ED 13 AT THIS TIME. PT CARE ASSUMED.
--- NOTE | 2025-03-13 00:10 | NUR ---
PT PRESENTS TO ED WITH PICC LINE TO RIGHT UPPER ARM.
--- NOTE | 2025-03-13 00:10 | NUR ---
CONTINUATION OF SKIN ASSESSMENT FROM INITAL ASSESSMENT BILATERAL ARM BRUISING REPORTED FROM ACCIDENTAL CONTACT WITH SURROUNDINGS. PT REPORTS NO RECENT TRAUMA, ASSAULT, OR FALLS. PT DENIES TAKING BLOOD THINNERS AT HOME.
--- NOTE | 2025-03-13 00:44 | ERN ---
ED Note History of Present Illness Stated Complaint: BRUISING TO ABD Chief Complaint: Other Problems Time Seen by MD: 00:00 Dictation: This is an 79-year-old female who came in to the emergency room complaining of bruising to the abdominal wall and tenderness she also reported bloating that started over the past few days. No history of any trauma. She was recently hospitalized as inpatient on 03/01/2025 with hypertensive crisis sepsis and she was noted to have UTI with ESBL E coli. She had a PICC line placed in the right upper extremity for antibiotic therapy and she was subsequently discharged to home Temperature 96.2 pulse 75 respirations 22 blood pressure 127/58 with a pulse oximetry of 96% Chronic medical problems include diabetes mellitus, hypertension, UTI, fibromyalgia, morbid obesity Allergies: Coded Allergies: Sulfa (Sulfonamide Antibiotics) (Unverified Allergy, Unknown, 09/14/17) naproxen (Unverified Allergy, Unknown, 09/18/22) phenazopyridine (Unverified Allergy, Unknown, 09/14/17) levofloxacin (Unverified Adverse Reaction, Unknown, SHORTNESS OF BREATH, 03/01/25) Home Meds Active Scripts Losartan Potassium (Losartan Potassium) 50 Mg Tablet, 1 TAB PO BID for 10 Days, #20 TAB 0 Refills Prov:KELLY MONTALVO MD 03/04/25 Prednisone (Prednisone) 20 Mg Tablet, 40 MG PO DAILY for 7 Days, #7 TAB Prov:KELLY MONTALVO MD 03/04/25 Reported Medications Levothyroxine Sodium (Levothyroxine Sodium) 200 Mcg Tablet, 1 TAB PO DAILY for 30 Days, #30 TAB 0 Refills 03/01/25 Nifedipine (Nifedipine ER) 90 Mg Tab.er.24, 1 TAB PO DAILY for 30 Days, #30 TAB 0 Refills 03/01/25 Escitalopram Oxalate (Escitalopram Oxalate) 10 Mg Tablet, 1 TAB PO HS for 30 Day s, #30 TAB 0 Refills 03/01/25 Mirtazapine (Mirtazapine) 15 Mg Tablet, 1 TAB PO HS for 30 Days, #30 TAB 0 Ref ills 03/01/25 Tizanidine HCl (Tizanidine HCl) 4 Mg Capsule, 1 CAP PO BID PRN for MUSCLE SPASMS for 30 Days, #90 CAP 0 Refills 03/01/25 Linagliptin (Tradjenta) 5 Mg Tablet, 1 TAB PO DAILY for 30 Days, #30 TAB 0 Refills 03/01/25 Levothyroxine Sodium (Levothyroxine Sodium) 25 Mcg Tablet, 1 TAB PO DAILY for 30 Days, #30 TAB 0 Refills 03/01/25 Hydrocodone/Acetaminophen (Hydrocodon-Acetaminophen 5-325) 5 Mg-325 Mg Tablet, 1 EACH PO 5X/DAY PRN for PAIN LEVEL 6 TO 10, TAB 03/01/25 Past Medical History Past Medical History: Diabetes-Type II, Fibromyalgia, Hypertension, UTI, Other Additional Past Medical Hx: DM NEUROPATHY, SEPSIS, ESBL, E COLI Surgical History: Hysterectomy, Cholecystectomy, Other Surgical History Other: BACK SX X3 Family History: Negative Social History: Negative History: Not Applicable RN Note Reviewed/Agreed w/PFSH: Yes Review of System Dictation Constitutional: Negative for fever,chills, and weight loss Eyes: Negative for injury, pain,redness, and discharge ENT: Negative for injury,pain or swelling Cardiovascular: Negative for chest pain, palpitations, and edema Respiratory: Negative for shortness of breath, cough, and wheezing, Abdomen/GI: Negative for , nausea, vomiting, , and constipation positive for abdominal wall ecchymosis and also abdominal pain. She also reported diarrhea for the past 12 days Back: Negative for injury and pain : Negative for injury, bleeding and discharge MS/Extremity: Negative for injury and deformity Skin: Negative for rash, and discoloration Neuro: Negative for headache, weakness, numbness, tingling, and seizure Psych: Negative for suicide ideation, homicidal ideation, and hallucinations Initial Vital Sign VS Vital Signs Date Time Temp Pulse Resp B/P (MAP) Pulse Ox O2 Delivery O2 Flow Rate FiO2 03/12/25 23:56 96.3 75 22 127/58 96 Room Air 03/13/25 00:05 0 21 Physical Exam Dictation General: awake, alert, NAD obese female Head/Face: Normocephalic, atraumatic Eyes: PERRL, EOMI, vision at baseline ENT: oral cavity clear, TMs clear, no signs of infection Neck: Trachea midline, supple, no nuchal rigidity Cardiovascular: RRR, normal S1/S2, No MRGs, no JVD Respiratory: Decreased breath sounds at the bases Abdomen: Soft,mild tender, distended, normal bowel sounds, no guarding or rebo und. Skin: Warm, dry, normal turgor, no rash MS/Extremity: Pulses equal, no cyanosis, neurovascular intact, FROM right upper extremity PICC line Neuro: COAx4, GCS 15, strength 5/5, CN 2-12 intact, normal cerebellar exam, normal gait, Psych: Normal behavior, mood, and affect normal Extremities-trace edema without any palpable cords, Homans sign is negative Results (Laboratory/Radiology) Laboratory/Radiology Laboratory Tests Test 03/13/25 00:38 White Blood Count 10.0 K/uL (4.8-10.8) Red Blood Count 2.76 MIL/uL (4.00-5.50) L Hemoglobin 8.9 g/dL (12.0-16.0) L Hematocrit 26.8 % (36-48) L Mean Corpuscular Volume 97.1 fL (79-99) Mean Corpuscular Hemoglobin 32.2 pg (27.0-33.0) Mean Corpuscular Hemoglobin Concent 33.2 g/dL (32.0-36.0) Red Cell Distribution Width 14.2 % (11.0-15.5) Platelet Count 84 K/uL (130-400) L Mean Platelet Volume 10.5 fL (7.5-10.5) Immature Granulocyte % (Auto) 1.3 % (0-1) H Neutrophils (%) (Auto) 69.1 % (40.0-77.0) Lymphocytes (%) (Auto) 17.6 % (21.0-51.0) L Monocytes (%) (Auto) 10.2 % (3.0-13.0) Eosinophils (%) (Auto) 1.6 % (0.0-8.0) Basophils (%) (Auto) 0.2 % (0.0-5.0) Neutrophils # (Auto) 6.9 K/uL (1.8-7.7) Lymphocytes # (Auto) 1.8 K/uL (1.0-4.8) Monocytes # (Auto) 1.0 K/uL (0.1-1.0) Eosinophils # (Auto) 0.16 K/uL (0.00-0.70) Basophils # (Auto) 0.02 K/uL (0.00-0.20) Absolute Immature Granulocyte (auto 0.13 K/uL (0-1) Nucleated Red Blood Cells 0.0 % (0.0-0.19) Sodium Level 143 mmol/L (136-145) Potassium Level 4.4 mmol/L (3.5-5.1) Chloride Level 107 mmol/L (101-111) Carbon Dioxide Level 28 mmol/L (21-32) Blood Urea Nitrogen 30 mg/dL (7-18) H Creatinine 1.2 mg/dL (0.5-1.0) H Glomerular Filtration Rate Calc 46 mL/min (>90) Random Glucose 202 mg/dL (70-105) H Total Calcium 8.1 mg/dL (8.5-10.1) L Labs Reviewed?: Yes ED Course ED Course Orders Procedure Category Date Status Time Cbc With Differential LAB 03/13/25 Complete 00: Basic Metabolic Panel LAB 03/13/25 Complete 00:29 Ct Abdomen/Pelvis W/O CT 03/13/25 Taken Contrast 00:55 Fecal Wbc LAB 03/13/25 Logged (Lactoferrin) 00:56 Ceftriaxone 1g Vial PHA 03/13/25 Complete (Rocephine 1g Inj) 03:00 Edm Admit Bridge Order ADM 03/13/25 Transmitted 03:01 Current Medications Medications (Trade) Dose Ordered Sig/Isauro Route PRN Reason Start Time Stop Time Status Last Admin Dose Admin Ceftriaxone Sodium (ROCEphine 1G INJ) 1 gm ONCE ONCE IVPB 03/13/25 03:00 03/13/25 03:01 DC Vital Signs Date Time Temp Pulse Resp B/P (MAP) Pulse Ox O2 Delivery O2 Flow Rate FiO2 03/13/25 01:54 69 16 126/57 98 Room Air* 0 21 03/13/25 00:05 98.8 61 17 112/47 96 Room Air* 0 21 03/12/25 23:56 96.3 75 22 127/58 96 Room Air We will perform diagnostic labs, advanced imaging and administer medications according to the patient's complaint. Once the results are available, will review and personally interpreted the labs to rule out any acute life- threatening emergency the trach require immediate intervention and treatment. I will then re-evaluate the patient after treatment and diagnostic exams have return to determine whether the patient requires any further testing, can safely be discharged home or need further admission to hospital for additional treatment and evaluation. My initial evaluation was probably abdominal wall hematoma related to subcu anticoagulation during her recent hospital stay. Labs reviewed CBC hemoglobin of 8.9 white count 00552 BUN and creatinine are 30 and 1.2. I pursued a CT scan of the abdomen and pelvis to evaluate for intra-abdominal hematoma or perhaps ascites especially also with tenderness 2:[address] scan of the abdomen and pelvis stat read reading showed a cirrhotic liver with pancreatic atrophy moderate ascites which is new since October 2023 reflux fluid in the infra carinal esophagus spleen is normal in size 2:50 a.m. in view of new onset ascites, abdominal pain which maybe a sign of spontaneous bacterial peritonitis, I recommended admission to the hospital for further management Ultrasound abdomen and paracentesis perhaps also additional GI evaluation due to esophageal fluid collection. 3:01 a.m.-patient accepted by Alan Angulo, mid-level provider for hospitalist group for admission and further management of this new onset ascites and concern for SBP Medical Decision Making MDM MDM: Differential diagnosis: Abdominal wall superficial ecchymosis, abdominal wall hematoma, intra-abdominal bleed, ascites, ileus, Rationale: Tests considered and ordered secondary to shared decision making include: labs, ECG and radiology Previous outside records reviewed: Old ER visits. Risk of complication and/or morbidity or mortality of patient management: None Medications-Per medication reconciliation Need for hospitalization: Patient does meet criteria for hospitalization. Need for emergency major/minor surgery: No There are no social concerns with this patient. Prescription drug management Prescriptions will include symptomatic care Patient's prior external medical records from other ER visits were reviewed by me as indicated. Prior testing and results from previous visits were reviewed. Prior tests were taken into account with medical decision making and resource utilization, independent historian/historians were used to obtain complete medical history. I independently interpreted the test that were performed, results were reviewed by me and considered findings on radiology if ordered. Medical management and examination interpretation discussions were had by me with other qualified healthcare professionals as indicated for the patient's care. Problem List Problem List: (1) Abdominal ascites (2) Superficial bruising of abdominal wall (3) Abdominal pain (4) Pancreatic atrophy (5) UTI due to extended-spectrum beta lactamase (ESBL) producing Escherichia coli (6) Obesity (7) Acute kidney injury DX & DISP Disposition: Inpatient Decision to Admit Time: 02:42 Departure Impression: Primary Impression: Abdominal ascites Additional Impressions: Cirrhosis of liver, Abdominal pain, UTI due to extended-spectrum beta lactamase (ESBL) producing Escherichia coli, Superficial bruising of abdominal wall, Acute kidney injury, Obesity, Gastroesophageal reflux, Pancreatic atrophy Condition: Stable Additional Instructions: Patient was informed of all the diagnostic labs and procedures conducted in the emergency room today and demonstrated understanding of the results. I p ersonally reviewed and interpreted all the diagnostic exams performed in the ER today. The patient will be admitted to the hospital for further treatment and evaluation. Disposition-admit to facility Condition-stable/guarded Course-uncertain at this time Pain status-decreased Assessment-exam unchanged Admission Certification- I certify that the patients status is appropriate and is based on my best clinical judgment and the patient's condition as documented in the medical records Referrals: STANLEY BALDERAS MD (PCP) RADHA STAHL MD Mar 13, 2025 00:44
[2025-03-13 00:49] LABS: BASOPHILS # (AUTO) 0.02 K/uL (0.00-0.20); BASOPHILS % (AUTO) 0.2 % (0.0-5.0); EOSINOPHILS # (AUTO) 0.16 K/uL (0.00-0.70); EOSINOPHILS % (AUTO) 1.6 % (0.0-8.0); HEMATOCRIT 26.8 % (36-48); IMMATURE GRANULOCYTE ABSOLUTE 0.13 K/uL (0-1); LYMPHOCYTES # (AUTO) 1.8 K/uL (1.0-4.8); LYMPHOCYTES % (AUTO) 17.6 % (21.0-51.0); MEAN CORPUSCULAR HEMOGLOBIN 32.2 pg (27.0-33.0); MEAN CORPUSCULAR HGB CONC 33.2 g/dL (32.0-36.0); MEAN CORPUSCULAR VOLUME 97.1 fL (79-99); MONOCYTES % (AUTO) 10.2 % (3.0-13.0); NEUTROPHILS # (AUTO) 6.9 K/uL (1.8-7.7); NEUTROPHILS % (AUTO) 69.1 % (40.0-77.0); PLATELET COUNT (AUTO) 84 K/uL (130-400); RED BLOOD CELL COUNT(AUTO) 2.76 MIL/uL (4.00-5.50); RED CELL DISTRIBUTION WIDTH 14.2 % (11.0-15.5)
[2025-03-13 01:11] LABS: CREATININE 1.2 mg/dL (0.5-1.0); POTASSIUM 4.4 mmol/L (3.5-5.1)
--- NOTE | 2025-03-13 01:30 | NUR ---
PT TAKEN TO REST ROOM TO ATTEMPT TO CATCH A STOOL SAMPLE ORDERED. PT WAS UNABLE TO HAVE A BOWEL MOVEMENT AT THIS TIME. ED MD MADE AWARE.
[2025-03-13] MEDS: cefTRIAXone 1G VIAL IVPB ONE (03:02)
--- NOTE | 2025-03-13 03:04 | HP ---
History of Present Illness Reason for Visit: abdominal pain History of Present Illness Ms. Arias is an 79-year-old female that was seen and examined today on 03/13/2025. Patient is a good historian of personal health Patient states he came to the emergency department with a chief complaint of abdominal pain. Onset was 2:00 p.m. on 03/12/2025. Location is to bilateral upper quadrants. Duration is constant. Character is described as sharp. There was no alleviating factors. Symptoms are aggravated with movement. She patient denies any associated nausea or vomiting. Past Medical History Patient History: Alzheimer's disease BROTHER (78) SISTER (75) Asthma MOTHER (76) Cardiovascular disease FATHER (76) No Family History of: Carcinomas Chronic obstructive pulmonary disease Completed stroke Diabetes mellitus Hypertension Immunocompromised state Sudden Unknown T2DM Hypertension Hyperlipidemia Hypothyroidism GERD Fibromyalgia Neuropathy Nodular Liver by CT on 11/17/2023 suggestive of liver cirrhosis PAST SURGICAL HISTORY: Hysterectomy back surgery appendectomy PAST SOCIAL HISTORY: Denies smoking, alcohol, or illicit drug use Review of Systems General: No Fever, No Chills, No Night Sweats, No Fatigue, No Malaise, No Appetite, No Other HEENT: No Head Aches, No Visual Changes, No Eye Pain, No Ear Pain, No Dysphasia, No Sinus Congestion, No Post Nasal Drip, No Sore Throat, No Other Pulmonary: No Dyspnea, No Cough, No Pleuritic Chest Pain, No Other Cardiovascular: No: Chest Pain, Palpitations, Orthopnea, Paroxysmal Noc. Dyspnea, Edema, Lt Headedness, Other Gastrointestinal: Abdominal Pain; No: Nausea, Vomiting, Diarrhea, Constipation, Melena, Hematochezia, Other Genitourinary: No Dysuria, No Frequency, No Incontinence, No Hematuria, No Retention, No Other Musculoskeletal: No: other, neck pain, shoulder pain, arm pain, back pain, hand pain, leg pain, foot pain Skin: No Urticaria, No Rash, No Other Neurological: No: Weakness, Numbness, Incoordination, Change in speech, Confusion, Seizures, Other Allergies: Coded Allergies: Sulfa (Sulfonamide Antibiotics) (Unverified Allergy, Unknown, 09/14/17) naproxen (Unverified Allergy, Unknown, 09/18/22) phenazopyridine (Unverified Allergy, Unknown, 09/14/17) levofloxacin (Unverified Adverse Reaction, Unknown, SHORTNESS OF BREATH, 03/01/25) Scheduled Escitalopram Oxalate (Escitalopram Oxalate), 1 TAB PO HS, (Reported) Levothyroxine Sodium (Levothyroxine Sodium), 1 TAB PO DAILY, (Reported) Levothyroxine Sodium (Levothyroxine Sodium), 1 TAB PO DAILY, (Reported) Linagliptin (Tradjenta), 1 TAB PO DAILY, (Reported) Losartan Potassium (Losartan Potassium), 1 TAB PO BID Mirtazapine (Mirtazapine), 1 TAB PO HS, (Reported) Nifedipine (Nifedipine ER), 1 TAB PO DAILY, (Reported) Prednisone (Prednisone), 40 MG PO DAILY Scheduled PRN Hydrocodone/Acetaminophen (Hydrocodon-Acetaminophen 5-325), 1 EACH PO 5X/DAY PRN for PAIN LEVEL 6 TO 10, (Reported) Tizanidine HCl (Tizanidine HCl), 1 CAP PO BID PRN for MUSCLE SPASMS, (Reported) Exam Vital Signs Vital Signs Date Time Temp Pulse Resp B/P (MAP) Pulse Ox O2 Delivery O2 Flow Rate FiO2 03/13/25 01:54 69 16 126/57 98 Room Air* 0 21 03/13/25 00:05 98.8 General Appearance: Alert, Oriented X3, Cooperative, No acute distress HEENT: Atraumatic Respiratory: Clear to auscultation, Normal air movement, NL respiratory effort Cardiovascular: Regular rate, Regular rhythm, Normal S1, Normal S2 Abdominal: Normal bowel sounds, Soft, No tenderness Extremities: No edema Skin: Other (Bruising to abdomen) Neuro: Normal speech, Strength at 5/5 X4 ext, Sensation intact, Cranial nerves 3-12 NL Psych/Mental Status: Mental status NL, Mood NL, Thoughts/Content NL Assessment/Plan ASSESSMENT: [ Ascites, POA New onset liver cirrhosis, POA Uncontrolled Diabetes mellitius type2, POA Anemia of chronic disease, POA Outpatient antibiotic treatment for UTI by PICC line Hypertension Hyperlipidemia Fibromyalgia Hypothyroidism] PLAN: [ Admit patient to medical floor as inpatient status. Ascites, new onset liver cirrhosis: Reviewed patient's. His imaging reports and CT scan on 11/17/2023 shows that there is a nodular liver suggestive of liver cirrhosis Follow up with the CT report from CT on 03/13/[address] admission [address] report is pending emergency room physician preliminary reading is believed to be that of ascites and suspected new onset liver cirrhosis. Monitor intake and output every shift. Weight patient daily. 1500 mL daily fluid restriction. Abdominal ultrasound to evaluate for ascites and possible paracentesis. Consider consulting Gastroenterology if patient needs inpatient evaluation. Outpatient UTI: Start Zosyn IV Q 8 hours. Patient does not know the name of the antibiotics she is receiving outpatient. Obtain urinalysis, follow up with the results. Uncontrolled Diabetes mellitus type 2: Check hemoglobin A1c in a.m. Glucometer checks a.c. and HS 1800 ADA diet Humulin R sliding scale Anemia of chronic disease: Consider transfusing packed red blood cells if hemoglobin less than seven. Monitor patient's labs. Avoid anticoagulation during this hospitalization did not alone liver cirrhosis current anemia. Hypertension, hyperlipidemia, fibromyalgia, hypothyroidism: Consider resuming home medications once they have been reconciled. At time of admission home medications have not been reconciled. For now: Hydralazine 10 mg IV every 4 hours for systolic blood pressure greater than 160 mmHg Atorvastatin 40 mg by mouth once daily As needed analgesia with morphine Check TSH in a.m. GI prophylaxis, famotidine DVT prophylaxis, Tino's and SCDs ADVANCED CARE PLANNING 1. Which of the following were discussed? Hospice Care - Yes Therapeutic options - yes Advance Directives - Yes - patient states she does not have any advance directives in place at this time Other discussions - patient wishes to remain a full code 2. Discussed with who? Patient 3. Voluntary nature of this service was explained to the patient? Yes 4. Amount of time spent - ___16 minutes____ 5. Reviewed by Physician? (if this service was performed by NPP) Yes This document was generated in part using voice recognition software, occasional wrong word or sound alike substitutions may have occurred due to the inherent limitations of voice recognition software. Read the chart carefully and recognize using context, where the substitutions have occurred. Although every effort was made to edit the content, resource agent and typing errors may occur ATTESTATION BY PHYSICIAN I have seen and examined the patient. I reviewed the documentation, medical decision making, and treatment plan as noted by the mid-level provider above. I agree with the findings and plan of care. LIA CALDWELL [facility] Mar 13, 2025 03:04
[2025-03-13] MEDS ORDERED: LACTULOSE 20 GM/30 ML UDCUP PO PRN (03:30)
[2025-03-13] MEDS: LACTULOSE 20 GM/30 ML UDCUP PO ONE (03:54)
[2025-03-13] MEDS ORDERED: acetaMINOPHEN 325 MG TAB PO PRN (04:30)
[2025-03-13] MEDS ORDERED: morPHINE 2 MG SYG IVP PRN (04:30)
[2025-03-13] MEDS: hydrALAZine 20MG/ML VIAL IV PRN (06:02)
--- NOTE | 2025-03-13 07:03 | NUR ---
REPORT GIVEN TO RANDALL BENITEZ AT THIS TIME
--- NOTE | 2025-03-13 07:19 | HMCIMG ---
CT ABDOMEN/PELVIS W/O CONTRAST HISTORY: Abdominal distention COMPARISON: 11/17/2003 TECHNIQUE: Multiple sequential axial images of the abdomen and pelvis were obtained from the dome of the diaphragm through symphysis pubis. Patient was not given contrast through intravenous route. Oral contrast was not given. FINDINGS: No pleural effusion is seen bilaterally. Bilateral lower lung. Atelectasis changes are seen. Degenerative changes of the thoracolumbar spine are present. The heart is borderline enlarged. Coronary artery calcifications are seen. Cirrhotic changes of the liver are noted. Liver measures 15 cm. Spleen is borderline enlarged measuring 12 cm. There are abdominal and esophageal varices. Pancreas is atrophic. There is fluid noted within the esophagus with dilatation may be related to reflux disease. Adrenal glands and pancreas are unremarkable. There is no evidence of hydronephrosis bilaterally. No evidence of renal stone is seen. Fecal material is seen in the colon. There are normal size retroperitoneal and mesenteric lymph nodes. There is ascites. Atherosclerotic changes are present. Pelvic sidewalls are symmetric bilaterally. Bladder is moderately distended. IMPRESSION: 1. Cirrhotic liver with volume loss plane. Moderate ascites. Abdominal and esophageal varices. CT was performed with one or more following dose reduction techniques: automated exposure control, adjustment of the mA and kv according to patient's size, or use of a iterative reconstruction technique.
--- NOTE | 2025-03-13 07:47 | HMCIMG ---
US ABDOMINAL COMPLETE HISTORY: Distended abdomen COMPARISON: None TECHNIQUE: Multiple transverse and longitudinal ultrasound images of the abdomen were obtained. FINDINGS: Abdominal aorta and inferior vena cava are unremarkable. The visualized portion of the pancreas is within normal limits. Liver measures 16 cm. Liver is echogenic consistent with liver parenchymal disease. Gallbladder has been removed by history. Common duct measures 2.7 mm. Small ascites is seen. Right kidney is not seen due to overlying bowel gas. Left kidney measures 10 x 5 cm. No hydronephrosis is seen of the left kidney. The study is limited due to overlying bowel gas and patient body habitus. Spleen measures 11 cm. The spleen is grossly unremarkable. IMPRESSION: 1. Cholecystectomy. No ductal dilatation is seen. 2. Right kidney is not visualized and cannot be fully evaluated. No hydronephrosis is seen left kidney.
[2025-03-13] MEDS: FAMOTIDINE 20MG TAB PO SCH (09:04)
[2025-03-13] MEDS: INSULIN humuLIN R 100 UNIT/ML 3ML SQ SCH (09:17)
[2025-03-13] MEDS: LoSARTan 25 MG TABLET PO ONE (09:56)
[2025-03-13 10:30] LABS: MEAN CORPUSCULAR HEMOGLOBIN 31.2 pg (27.0-33.0); MEAN CORPUSCULAR VOLUME 97.4 fL (79-99); RED BLOOD CELL COUNT(AUTO) 3.08 MIL/uL (4.00-5.50); RED CELL DISTRIBUTION WIDTH 14.1 % (11.0-15.5); WHITE BLOOD COUNT (AUTO) 9.3 K/uL (4.8-10.8)
[2025-03-13 10:40] LABS: POTASSIUM 4.3 mmol/L (3.5-5.1)
[2025-03-13 10:42] LABS: % IRON SATURATION 18.2 % (22-44)
[2025-03-13 10:44] LABS: ALBUMIN 2.4 g/dL (3.5-5.0); BILIRUBIN,TOTAL 0.7 mg/dL (0.2-1.0); MAGNESIUM 2.1 mg/dL (1.80-2.40); TOTAL PROTEIN, SERUM 6.3 g/dL (6.0-8.3)
[2025-03-13 10:55] LABS: HEMOGLOBIN A1C 8.1 % (4.0-6.0)
--- NOTE | 2025-03-13 11:37 | NUR ---
MET WITH PATIENT AT BEDSIDE FOR DC PLANNING. ROUNDED ON PATIENT TWICE- ON FIRST ATTEMPT, PT SLEEPING SOUNDLY UNABLE TO ROUSE BY SPEAKING TO HER. WHEN REVISITED, PT ROUSED EASILY TO NAME. PATIENT IS READMISSION; WAS ATTENDING INFUSION UNIT AT [facility] SINCE LAST DISCHARGE 9 DAYS AGO. WAS ADMITTED FOR ' FLUID IN HER BELLY' HAS A PROVIDER, CAN'T REMEMBER AGENCY NAME, ABOUT 20 HRS A WEEK, AND ACCORDING TO PATIENT PROVIDER CALLED FOR EMS. [facility] SHE HAS BEEN DRIVING HERSELF TO HER INFUSION APPOINTMENTS. [facility] HOME IS SAFE AND ACCESSIBLE, HAS SHOWER CHAIR, HAS WALKER FOR EASE OF AMBULATION. WILL NOT GO ANYWHERE BUT HOME ON DISCHARGE
[2025-03-13 12:08] LABS: ADD UA MICROSCOPIC YES; APPEARANCE,URINE CLOUDY (CLEAR); BILIRUBIN,URINE NEGATIVE (NEGATIVE); COLOR,URINE YELLOW (YELLOW); GLUCOSE, URINE (UA) 70 mg/dL (NEGATIVE); KETONES,URINE NEGATIVE (NEGATIVE); LEUKOCYTE ESTERASE ,URINE NEGATIVE Leu/uL (NEGATIVE); NITRATE,URINE NEGATIVE (NEGATIVE); OCCULT BLOOD,URINE SMALL (NEGATIVE); PROTEIN,URINE 200 mg/dL (NEGATIVE); UROBILINOGEN,URINE 0.2 mg/dL (0.2-1.0)
[2025-03-13 12:10] LABS: BACTERIA,URINE FEW /HPF (None Seen); MUCUS,URINE RARE LPF (None Seen); SQUAMOUS EPITHELIAL CELL,UR FEW /HPF (0-2)
[2025-03-13] MEDS: hydrALAZine 25MG TABLET PO SCH (12:18)
[2025-03-13] MEDS: LoSARTan 50 MG TABLET PO ONE (12:18)
--- NOTE | 2025-03-13 13:16 | NUR ---
ASSUMED CARE AT THIS TIME
--- NOTE | 2025-03-13 13:16 | NUR ---
ASSUMED CARE AT THIS TIME
[2025-03-13] MEDS: ondanSETRON 4MG INJ IV PRN (17:06)
--- NOTE | 2025-03-13 19:27 | NUR ---
PAGED DR. TAYLOR FOR PENDING GI CONSULT, PENDING CALL BACK.
[2025-03-13] MEDS ORDERED: LoSARTan 25 MG TABLET PO SCH (21:00)
[2025-03-13 21:25] VITALS: BP 195/90; PULSE 98; RESP 20; TEMP 98.5
[2025-03-13] MEDS: LoSARTan 50 MG TABLET PO SCH (21:39)
[2025-03-13] MEDS: atorVAStatin 40 MG TABLET PO SCH (21:39)
[2025-03-13] MEDS ORDERED: LOSA50TA64 PO (22:23)
[2025-03-13] MEDS ORDERED: FURO20TA4 PO (22:23)
[2025-03-13] MEDS ORDERED: ESCI-8 PO (22:23)
[2025-03-13] MEDS ORDERED: LEVO200T10 PO (22:23)
[2025-03-13] MEDS ORDERED: ATOR20TA65 PO (22:23)
[2025-03-13] MEDS ORDERED: MIRT-22 PO (22:23)
[2025-03-13] MEDS ORDERED: HYDR-4060 PO (22:23)
[2025-03-13] MEDS ORDERED: LACT10SO76 PO (22:23)
[2025-03-13] MEDS ORDERED: HYDR25 PO (22:23)
[2025-03-13] MEDS ORDERED: INSU100I47 SQ (22:23)
[2025-03-13] MEDS ORDERED: DIPH-1150 PO (22:23)
[2025-03-13] MEDS ORDERED: NIFE90TA72 PO (22:23)
[2025-03-14] VITALS (32 sets, daily range): BP systolic 124–226; BP diastolic 46–144; PULSE 74–110; RESP 14–31; TEMP 98.1–99.1; O2SAT 92–97
[2025-03-14] MEDS: morPHINE 2 MG SYG IVP PRN (00:11)
[2025-03-14 05:04] LABS: BASOPHILS # (AUTO) 0.01 K/uL (0.00-0.20); BASOPHILS % (AUTO) 0.1 % (0.0-5.0); EOSINOPHILS # (AUTO) 0.14 K/uL (0.00-0.70); EOSINOPHILS % (AUTO) 1.8 % (0.0-8.0); IMMATURE GRANULOCYTE ABSOLUTE 0.05 K/uL (0-1); LYMPHOCYTES # (AUTO) 1.1 K/uL (1.0-4.8); LYMPHOCYTES % (AUTO) 15.1 % (21.0-51.0); MEAN CORPUSCULAR HEMOGLOBIN 31.5 pg (27.0-33.0); MEAN CORPUSCULAR HGB CONC 32.3 g/dL (32.0-36.0); MEAN CORPUSCULAR VOLUME 97.4 fL (79-99); MONOCYTES # (AUTO) 0.8 K/uL (0.1-1.0); NEUTROPHILS # (AUTO) 5.5 K/uL (1.8-7.7); NEUTROPHILS % (AUTO) 72.3 % (40.0-77.0); PLATELET COUNT (AUTO) 88 K/uL (130-400); RED BLOOD CELL COUNT(AUTO) 3.08 MIL/uL (4.00-5.50); RED CELL DISTRIBUTION WIDTH 14.6 % (11.0-15.5); WHITE BLOOD COUNT (AUTO) 7.6 K/uL (4.8-10.8)
[2025-03-14 05:15] LABS: INR 1.03 (0.85-1.15); PROTHROMBIN TIME 10.9 SEC (9.6-11.6)
[2025-03-14 05:17] LABS: PARTIAL THROMBOPLASTIN TIME 23.5 SEC (26.3-35.5)
[2025-03-14 05:30] LABS: CREATININE 0.8 mg/dL (0.5-1.0); MAGNESIUM 2.2 mg/dL (1.80-2.40); PHOSPHORUS 3.1 mg/dL (2.5-4.9); POTASSIUM 4.2 mmol/L (3.5-5.1); THYROID STIMULATING HORMONE 1.32 uIU/mL (0.36-3.74)
[2025-03-14] MEDS: hydrALAZine 20MG/ML VIAL IV ONE ×2 (05:49→16:04)
--- NOTE | 2025-03-14 08:13 | CONS ---
GASTROENTEROLOGY CONSULTATION NOTE Date of Consultation: Mar 14, 2025 Time of Consultation: 08:13 History of Present Illness: [ ] Review of Systems: CONSTITUTIONAL: No malaise or change in sensation of wellbeing. ENMT: No rhinorrhea, otorrhea, sinus pain, ear ache. CARDIOVASCULAR: No angina, palpitations, orthopnea or paroxysmal dyspnea. RESPIRATORY: No SOB. GASTROINTESTINAL: No abdominal pain, nausea, vomiting, diarrhea, hematemesis, melena or change in the patient's habitual bowel movements consistency/number. GENITOURINARY: No dysuria, hematuria or change in bladder continence. MUSCULOSKELETAL: No new muscle pain or decrease in muscular strength. No new joint swelling, redness or tenderness. SKIN: No new rash. Past Medical History: [ ] Past Surgical History: [ ] Past Social History: [ ] Family History: [ ] Coded Allergies: Sulfa (Sulfonamide Antibiotics) (Unverified Allergy, Unknown, 09/14/17) naproxen (Unverified Allergy, Unknown, 09/18/22) phenazopyridine (Unverified Allergy, Unknown, 09/14/17) levofloxacin (Unverified Adverse Reaction, Unknown, SHORTNESS OF BREATH, 03/01/25) Physical Exam: GEN: Awake, alert, oriented in person, time and place, and in no acute distress. HEENT: No sinus tenderness. Tympanic membranes were not examined. No rhinorrhea. Oral pharyngeal mucosa is pink, moist and within normal limits. Neck is supple with no cervical lymphadenopathy, thyromegaly or JVD. CHEST: Inspection, palpation and percussion of the chest were unremarkable. Lung auscultation revealed normal breath sounds bilaterally. CARDIAC: PMI is within normal limits. Heart sounds are regular. Normal S1, S2. No gallop or murmur. ABD: Soft, non-tender and not distended. No peritoneal signs on palpation. No organomegaly. Normal bowel sounds. EXT: No cyanosis or clubbing. No edema. SKIN: Intact. No rashes. JOINTS: No evidence of synovitis or acute arthritis. NEURO: Alert and oriented to name, place and person. Cranial nerve examination is unremarkable. No focal motor deficits. Normal speech. Gait is normal. Strength is normal. Vital Sign (Last 24 Hours) 6/15/25 6/16/25 6/16/25 6/16/25 21:25 04:02 05:17 05:29 Temp 98.6 Pulse 96 Resp 18 B/P (MAP) 196/74 Pulse Ox 96 O2 Delivery Room Air O2 Flow Rate 0 FiO2 21 Laboratory: [ ] Laboratory: Test 03/14/25 05:10 03/14/25 04:41 03/13/25 11:50 03/13/25 10:18 Range/Units Whole Blood Glucose 205 H 70-110 MG/DL White Blood Count 7.6 4.8-10.8 K/uL Red Blood Count 3.08 L 4.00-5.50 MIL/uL Hemoglobin 9.7 L 12.0-16.0 g/dL Hematocrit 30.0 L 36-48 % Mean Corpuscular Volume 97.4 79-99 fL Mean Corpuscular Hemoglobin 31.5 27.0-33.0 pg Mean Corpuscular Hemoglobin Concent 32.3 32.0-36.0 g/dL Red Cell Distribution Width 14.6 11.0-15.5 % Platelet Count 88 L 130-400 K/uL Mean Platelet Volume 10.9 H 7.5-10.5 fL Immature Granulocyte % (Auto) 0.7 0-1 % Neutrophils (%) (Auto) 72.3 40.0-77.0 % Lymphocytes (%) (Auto) 15.1 L 21.0-51.0 % Monocytes (%) (Auto) 10.0 3.0-13.0 % Eosinophils (%) (Auto) 1.8 0.0-8.0 % Basophils (%) (Auto) 0.1 0.0-5.0 % Neutrophils # (Auto) 5.5 1.8-7.7 K/uL Lymphocytes # (Auto) 1.1 1.0-4.8 K/uL Monocytes # (Auto) 0.8 0.1-1.0 K/uL Eosinophils # (Auto) 0.14 0.00-0.70 K/uL Basophils # (Auto) 0.01 0.00-0.20 K/uL Absolute Immature Granulocyte (auto 0.05 0-1 K/uL Nucleated Red Blood Cells 0.0 0.0-0.19 % Prothrombin Time 10.9 9.6-11.6 SEC Prothromb Time International Ratio 1.03 0.85-1.15 Activated Partial Thromboplast Time 23.5 L 26.3-35.5 SEC Sodium Level 142 136-145 mmol/L Potassium Level 4.2 3.5-5.1 mmol/L Chloride Level 109 101-111 mmol/L Carbon Dioxide Level 27 21-32 mmol/L Blood Urea Nitrogen 25 H 7-18 mg/dL Creatinine 0.8 0.5-1.0 mg/dL Glomerular Filtration Rate Calc 74 >90 mL/min Random Glucose 218 H 70-105 mg/dL Total Calcium 8.6 8.5-10.1 mg/dL Phosphorus Level 3.1 2.5-4.9 mg/dL Magnesium Level 2.20 1.80-2.40 mg/dL Triglycerides Level 125 30-200 mg/dL Cholesterol Level 181 # <200 mg/dL LDL Cholesterol 73 0-99 mg/dL HDL Cholesterol 85 35-85 mg/dL Thyroid Stimulating Hormone (TSH) 1.32 # 0.36-3.74 uIU/mL Urine Color YELLOW YELLOW Urine Appearance CLOUDY H CLEAR Urine pH 6.0 5.0-8.0 Urine Specific [place] 1.017 1.001-1.031 Urine Protein 200 H NEGATIVE mg/dL Urine Glucose (UA) 70 H NEGATIVE mg/dL Urine Ketones NEGATIVE NEGATIVE mg/dL Urine Occult Blood SMALL H NEGATIVE Urine Nitrate NEGATIVE NEGATIVE Urine Bilirubin NEGATIVE NEGATIVE mg/dL Urine Urobilinogen 0.2 0.2-1.0 mg/dL Urine Leukocyte Esterase NEGATIVE NEGATIVE Arturo/uL Urine RBC 6-10 H 0-1 /HPF Urine WBC 6-10 H 0-1 /HPF Urine Squamous Epithelial Cells FEW 0-2 /HPF Urine Bacteria FEW None Seen /HPF Hemoglobin A1c 8.1 H 4.0-6.0 % Estimated Average Glucose (eAG) 186 H 70-126 mg/dL Iron Level 34 #L 50-170 mcg/dL Total Iron Binding Capacity 186 L 250-450 mcg/dL Percent Iron Saturation 18.2 L 22-44 % Total Bilirubin 0.7 0.2-1.0 mg/dL Aspartate Amino Transf (AST/SGOT) 43 H 10-37 U/L Alanine Aminotransferase (ALT/SGPT) 57 12-78 U/L Alkaline Phosphatase 116 50-136 U/L Total Protein 6.3 6.0-8.3 g/dL Albumin 2.4 L 3.5-5.0 g/dL Test 03/13/25 07:23 03/13/25 03:50 Range/Units Stool Occult Blood POSITIVE H NEGATIVE Stool Lactoferrin (EVETTE) POSITIVE H NEGATIVE Ammonia 29 11-32 umol/L Current Medications Medications (Trade) Dose Ordered Sig/Isauro Route PRN Reason Start Time Stop Time Status Last Admin Dose Admin Acetaminophen (TYLenol 325MG TAB) 650 mg Q6H PRN PO TEMPERATURE GREATER THAN 101.5 03/13/25 04:30 04/12/25 04:29 Atorvastatin Calcium (LIPItor 40MG) 40 mg HS PO 03/13/25 21:00 04/12/25 20:59 03/13/25 21:39 40 MG Famotidine (Pepcid 20mg Tab) 20 mg DAILY PO 03/13/25 09:00 04/12/25 08:59 03/13/25 09:04 20 MG Hydralazine HCl (APRESOLine 20MG INJ) 10 mg Q6H PRN IV For:SBP above 160;DBP above 90 03/13/25 04:30 04/12/25 04:29 03/14/25 03:46 10 MG Hydralazine HCl ([id number] TAB) 25 mg TID PO 03/13/25 12:30 04/12/25 12:29 03/13/25 21:39 25 MG Insulin Human Regular (humuLIN R 100 UNIT/ML 3ML) INSULIN SLIDING SCAL... ACHS SQ 03/13/25 07:30 04/12/25 07:29 03/13/25 21:51 3 UNIT Iron Sucrose (VenoFER) 100 mg DAILY IV 03/14/25 09:00 03/16/25 09:01 Lactulose (Constulose 20gm/ 30ml Udcup) 20 gm BID PRN PO CONSTIPATION 03/13/25 03:30 04/12/25 03:29 Losartan Potassium (CozAAR 25MG TAB) 25 mg BID PO 03/13/25 21:00 03/13/25 12:08 DC Losartan Potassium (CozAAR 50 mg TAB) 50 mg BID PO 03/13/25 21:00 04/12/25 20:59 03/13/25 21:39 50 MG Morphine Sulfate (morPHINE 2MG SYG) 2 mg Q4H PRN IVP SEVERE PAIN (7-10) 03/13/25 04:30 03/13/25 09:51 DC Morphine Sulfate (morPHINE 2MG SYG) 2 mg Q4H PRN IVP SEVERE PAIN (7-10) 03/14/25 00:30 03/21/25 00:29 03/14/25 00:11 2 MG Ondansetron HCl (zoFRAN 4MG INJ) 4 mg Q6H PRN IV NAUSEA/VOMITING 03/13/25 04:30 04/12/25 04:29 03/13/25 17:06 4 MG Diagnostics / Radiology: [COPY/PASTE HERE IF NO REPORTS PLEASE DELETE SECTION] Assessment: [ ] Plan: [ ] [facility] Mar 14, 2025 08:13
[2025-03-14] MEDS: IRON sUCROse COMPLEX 100 MG/5 ML VIAL IV SCH (09:21)
[2025-03-14] MEDS: metoPROLOL tartRATE 25 MG TAB PO SCH (09:57)
--- NOTE | 2025-03-14 10:02 | PN ---
[facility] PROGRESS NOTE Date of Service: Mar 14, 2025 Time of Service: 09:49 SUBJECTIVE: Ms. Arias is an 79-year-old female that was seen and examined on 03/13/2025. Patient is a good historian of personal health Patient stated she came to the emergency department with a chief complaint of abdominal pain. Location is to bilateral upper quadrants. Duration is constant. Character is described as sharp. There was no alleviating factors. Symptoms are aggravated with movement. She denied any associated nausea or vomiting. CT abdomen and pelvis shows cirrhotic liver with volume loss plane, moderate ascites, abdominal and esophageal varices. Ultrasound abdomen showing cholecystectomy, not ductal dilatation, right kidney not visualized and can not be fully evaluated, no hydronephrosis seen left kidney. Patient admitted for further evaluation and medical management 03/14 patient admitted to the medical floor, BP 182/87, heart rate of 105, afebrile, saturating normal on room air, hemoglobin stable at 9.7, hematocrit 30.0, WBC 7.6, platelet count of 88, sodium 142, potassium 4.2, BUN of 25, creatinine 0.8, total calcium 8.6, phosphorus 3.1, magnesium 2.2, iron level 34, liver enzymes with a total bilirubin 0.7, AST of 43, ALT of 57, albumin 2.4 Patient remains admitted to the medical floor GI consultation requested, we will follow input and recommendation, patient scheduled for EGD today. We will start the patient on Protonix and octreotide drip CBC q.8 hours, transfuse 1 unit of PRBC if hemoglobin less than eight Start the patient on Venofer 200 mg IV daily for three days IR consultation requested for ultrasound-guided paracentesis, both diagnostic and therapeutic, fluid will be sent for analysis including cytology We will request dietitian consultation Start empiric antibiotics with Rocephin 1 g IV daily, follow results of urine culture and adjust antibiotics accordingly Add metoprolol 25 mg p.o. b.i.d. to current BP management, as well as hydralazine 5 mg IV every 6 hours as needed for SBP greater than 160 Chest x-ray and echocardiogram to evaluate ejection fraction Patient with a hemoglobin A1c of 8.1 continue insulin sliding scale, add Lantus 10 units subcutaneously at bedtime, continue to adjust as needed Home medications reviewed and reconciled REVIEW OF SYSTEMS CONSTITUTIONAL: Denies fevers, chills, or night sweats. No unintentional weight loss reported. NEUROLOGICAL: Denies headache, amaurosis fugax, motor weakness, sensory deficit, vertigo/spinning sensation, gait abnormalities, or tremors. ENT: No hearing loss, otalgia, otorrhea, rhinitis, rhinorrhea, hoarseness, or sore throat. CARDIOVASCULAR: Denies any exertional angina, dyspnea on exertion, orthopnea, paroxysmal nocturnal dyspnea, palpitations, life-threatening arrhythmias, claudication. PULMONARY: Denies any shortness of breath, cough, phlegm/sputum, hemoptysis, pleuritic chest pain. SLEEP: Denies morning headaches, daytime somnolence or napping. Denies difficu lty falling asleep, staying asleep, waking from sleep. Denies knowledge of snoring. GASTROINTESTINAL: Denies any type of dysphagia to either liquids or solids. Denies nausea, vomiting, pyrosis, early satiety, abdominal pain, diarrhea, constipation, or changes in stool consistency or caliber. Denies coffee-ground emesis, hematemesis, hematochezia, or melanotic stools. GENITOURINARY: Denies frequency, urgency, nocturia, hematuria or incontinence (Storage/Irritative symptoms.) Low urinary stream, straining to void, urinary intermittency or hesitancy, splitting of the voiding stream, terminal dribbling. ENDOCRINOLOGIC: Denies polyuria, polydipsia, polyphagia or heat/cold intol erances. HEMATOLOGIC: Denies thrombophilia/previous clots, or coagulopathy/bleeding disorders. ONCOLOGIC: Denies personal history of malignancy. DERMATOLOGIC: Denies rashes or pruritus. PSYCHIATRIC: Denies any suicidal or homicidal ideation. Denies hallucinations. PHYSICAL EXAM GENERAL APPEARANCE: The patient is awake, alert, and oriented, in no acute cardiopulmonary distress. NEUROLOGICAL: Cranial nerves II-XII grossly intact. Motor is 5/5 in bilateral upper and lower extremities proximal to distal. No sensory deficits. HEENT: Face is symmetric. Pupils are equal and reactive. Extraocular movements are intact. NECK: Supple. No JVD. No thyromegaly. No submental, submandibular, pre- /postauricular, occipital or supraclavicular lymphadenopathy. CHEST: Normal chest expansion. No Telemetry. LUNGS: Absence of any rales, rhonchi or any wheezing. CARDIOVASCULAR: Regular. S1 and S2 normal. No appreciable rubs, murmurs or gallops. ABDOMEN: Soft, nontender, and nondistended. There is no rebound, voluntary guarding, or rigidity. : Deferred. No Jasso. EXTREMITIES: Non-edematous and not cyanotic. No clubbing. Good capillary refill. SKIN: No skin breakdown. Vital Signs (last 8hr) Date Time Temp Pulse Resp B/P (MAP) Pulse Ox O2 Delivery O2 Flow Rate FiO2 03/14/25 09:39 92 Room Air* 0 21 03/14/25 08:14 98.1 105 16 182/87 92 03/14/25 05:29 96 03/14/25 05:17 196/74 03/14/25 04:02 98.6 87 18 165/98 96 Room Air LABS: Laboratory: Test 03/14/25 05:10 03/14/25 04:41 03/13/25 11:50 03/13/25 10:18 Range/Units Whole Blood Glucose 205 H 70-110 MG/DL White Blood Count 7.6 4.8-10.8 K/uL Red Blood Count 3.08 L 4.00-5.50 MIL/uL Hemoglobin 9.7 L 12.0-16.0 g/dL Hematocrit 30.0 L 36-48 % Mean Corpuscular Volume 97.4 79-99 fL Mean Corpuscular Hemoglobin 31.5 27.0-33.0 pg Mean Corpuscular Hemoglobin Concent 32.3 32.0-36.0 g/dL Red Cell Distribution Width 14.6 11.0-15.5 % Platelet Count 88 L 130-400 K/uL Mean Platelet Volume 10.9 H 7.5-10.5 fL Immature Granulocyte % (Auto) 0.7 0-1 % Neutrophils (%) (Auto) 72.3 40.0-77.0 % Lymphocytes (%) (Auto) 15.1 L 21.0-51.0 % Monocytes (%) (Auto) 10.0 3.0-13.0 % Eosinophils (%) (Auto) 1.8 0.0-8.0 % Basophils (%) (Auto) 0.1 0.0-5.0 % Neutrophils # (Auto) 5.5 1.8-7.7 K/uL Lymphocytes # (Auto) 1.1 1.0-4.8 K/uL Monocytes # (Auto) 0.8 0.1-1.0 K/uL Eosinophils # (Auto) 0.14 0.00-0.70 K/uL Basophils # (Auto) 0.01 0.00-0.20 K/uL Absolute Immature Granulocyte (auto 0.05 0-1 K/uL Nucleated Red Blood Cells 0.0 0.0-0.19 % Prothrombin Time 10.9 9.6-11.6 SEC Prothromb Time International Ratio 1.03 0.85-1.15 Activated Partial Thromboplast Time 23.5 L 26.3-35.5 SEC Sodium Level 142 136-145 mmol/L Potassium Level 4.2 3.5-5.1 mmol/L Chloride Level 109 101-111 mmol/L Carbon Dioxide Level 27 21-32 mmol/L Blood Urea Nitrogen 25 H 7-18 mg/dL Creatinine 0.8 0.5-1.0 mg/dL Glomerular Filtration Rate Calc 74 >90 mL/min Random Glucose 218 H 70-105 mg/dL Total Calcium 8.6 8.5-10.1 mg/dL Phosphorus Level 3.1 2.5-4.9 mg/dL Magnesium Level 2.20 1.80-2.40 mg/dL Triglycerides Level 125 30-200 mg/dL Cholesterol Level 181 # <200 mg/dL LDL Cholesterol 73 0-99 mg/dL HDL Cholesterol 85 35-85 mg/dL Thyroid Stimulating Hormone (TSH) 1.32 # 0.36-3.74 uIU/mL Urine Color YELLOW YELLOW Urine Appearance CLOUDY H CLEAR Urine pH 6.0 5.0-8.0 Urine Specific [place] 1.017 1.001-1.031 Urine Protein 200 H NEGATIVE mg/dL Urine Glucose (UA) 70 H NEGATIVE mg/dL Urine Ketones NEGATIVE NEGATIVE mg/dL Urine Occult Blood SMALL H NEGATIVE Urine Nitrate NEGATIVE NEGATIVE Urine Bilirubin NEGATIVE NEGATIVE mg/dL Urine Urobilinogen 0.2 0.2-1.0 mg/dL Urine Leukocyte Esterase NEGATIVE NEGATIVE Arturo/uL Urine RBC 6-10 H 0-1 /HPF Urine WBC 6-10 H 0-1 /HPF Urine Squamous Epithelial Cells FEW 0-2 /HPF Urine Bacteria FEW None Seen /HPF Hemoglobin A1c 8.1 H 4.0-6.0 % Estimated Average Glucose (eAG) 186 H 70-126 mg/dL Iron Level 34 #L 50-170 mcg/dL Total Iron Binding Capacity 186 L 250-450 mcg/dL Percent Iron Saturation 18.2 L 22-44 % Total Bilirubin 0.7 0.2-1.0 mg/dL Aspartate Amino Transf (AST/SGOT) 43 H 10-37 U/L Alanine Aminotransferase (ALT/SGPT) 57 12-78 U/L Alkaline Phosphatase 116 50-136 U/L Total Protein 6.3 6.0-8.3 g/dL Albumin 2.4 L 3.5-5.0 g/dL Test 03/13/25 07:23 03/13/25 03:50 Range/Units Stool Occult Blood POSITIVE H NEGATIVE Stool Lactoferrin (EVETTE) POSITIVE H NEGATIVE Ammonia 29 11-32 umol/L Current Medications Medications (Trade) Dose Ordered Sig/Isauro Route PRN Reason Start Time Stop Time Status Last Admin Dose Admin Acetaminophen (TYLenol 325MG TAB) 650 mg Q6H PRN PO TEMPERATURE GREATER THAN 101.5 03/13/25 04:30 04/12/25 04:29 Atorvastatin Calcium (LIPItor 40MG) 40 mg HS PO 03/13/25 21:00 04/12/25 20:59 03/13/25 21:39 40 MG Famotidine (Pepcid 20mg Tab) 20 mg DAILY PO 03/13/25 09:00 04/12/25 08:59 03/13/25 09:04 20 MG Hydralazine HCl (APRESOLine 20MG INJ) 10 mg Q6H PRN IV For:SBP above 160;DBP above 90 03/13/25 04:30 04/12/25 04:29 03/14/25 03:46 10 MG Hydralazine HCl ([id number] TAB) 25 mg TID PO 03/13/25 12:30 04/12/25 12:29 03/13/25 21:39 25 MG Insulin Human Regular (humuLIN R 100 UNIT/ML 3ML) INSULIN SLIDING SCAL... ACHS SQ 03/13/25 07:30 04/12/25 07:29 03/13/25 21:51 3 UNIT Iron Sucrose (VenoFER) 100 mg DAILY IV 03/14/25 09:00 03/16/25 09:01 03/14/25 09:21 100 MG Lactulose (Constulose 20gm/ 30ml Udcup) 20 gm BID PRN PO CONSTIPATION 03/13/25 03:30 04/12/25 03:29 Losartan Potassium (CozAAR 25MG TAB) 25 mg BID PO 03/13/25 21:00 03/13/25 12:08 DC Losartan Potassium (CozAAR 50 mg TAB) 50 mg BID PO 03/13/25 21:00 04/12/25 20:59 03/13/25 21:39 50 MG Morphine Sulfate (morPHINE 2MG SYG) 2 mg Q4H PRN IVP SEVERE PAIN (7-10) 03/13/25 04:30 03/13/25 09:51 DC Morphine Sulfate (morPHINE 2MG SYG) 2 mg Q4H PRN IVP SEVERE PAIN (7-10) 03/14/25 00:30 03/21/25 00:29 03/14/25 00:11 2 MG Ondansetron HCl (zoFRAN 4MG INJ) 4 mg Q6H PRN IV NAUSEA/VOMITING 03/13/25 04:30 04/12/25 04:29 03/13/25 17:06 4 MG DIAGNOSTICS / RADIOLOGY: [ ] ASSESSMENT: Liver cirrhosis, POA Moderate ascites, POA Acute GI bleed, POA Iron deficiency anemia, POA Moderate malnutrition, POA UTI, POA Uncontrolled hypertension, POA Uncontrolled diabetes mellitus type 2 PLAN: Patient remains admitted to the medical floor GI consultation requested, we will follow input and recommendation, patient scheduled for EGD today We will start the patient on Protonix and octreotide drip CBC q.8 hours, transfuse 1 unit of PRBC if hemoglobin less than eight Start the patient on Venofer 200 mg IV daily for three days IR consultation requested for ultrasound-guided paracentesis, both diagnostic and therapeutic, fluid will be sent for analysis including cytology We will request dietitian consultation Start empiric antibiotics with Rocephin 1 g IV daily, follow results of urine culture and adjust antibiotics accordingly Add metoprolol 25 mg p.o. b.i.d. to current BP management, as well as hydralazine 5 mg IV every 6 hours as needed for SBP greater than 160 Chest x-ray and echocardiogram to evaluate ejection fraction Patient with a hemoglobin A1c of 8.1 continue insulin sliding scale, add Lantus 10 units subcutaneously at bedtime, continue to adjust as needed Home medications reviewed and reconciled NEURO: Minimize central acting medications as possible. Fall Precautions. Well lighted room through the day and minimize interruptions through the night to prevent acute delirium. PULMONARY: Supplemental 02 as needed BiPAP as necessary, for respiratory distress Titrate Fio2 to keep Spo2 > or = 90% DuoNebs and CPT as needed IS hourly while awake for pulmonary hygiene prn Out of bed to chair as tolerated Maintain aspiration precautions at all times CARDIOVASCULAR: Follow hemodynamics. Vital signs per facility protocol GI & NUTRITION: Continue nutritional support Aspirations precautions Prokinetic agents and laxatives as needed KIDNEYS & ELECTROLYTES: Strict monitoring of intake and output Daily weights Avoid nephrotoxic agents Monitor electrolytes and replace as needed Goal urine output of 30mL/hr or 0.5mL/kg/hr Medications to be dosed according to renal function. Avoid contrast if possible ENDOCRINE: Maintain blood glucose between 100-180 at all times. Insulin sliding scale for blood glucose management Hypoglycemia and hyperglycemia protocol in place INFECTIOUS DISEASE: Trend temperature, WBC and procalcitonin level Follow cultures, deescalate antibiotics as soon as possible. Panculture if new onset fever HEMATOLOGY & COAGULATION: Monitor H&H. Keep Hgb > 7 Transfuse 1 unit of PRBC for Hgb < 7 Transfuse 1 pack of platelets of platelets < 20, 000 Watch for any signs and symptoms of bleeding SKIN: Pressure ulcer prevention per facility protocol Specialty mattress as needed ORTHO/REHAB Continue PT/OT PRN: MEDICATIONS Tylenol 650 mg po every 4 hrs for fever zofran 4 mg IV every 6 hrs for n/v Hydralazine 5 mg IV every 4 hrs systolic pressure > 160 bowel regiment: lactulose 20 gm PO BID PRN constipation Supportive measures: Continue GI and DVT prophylaxis Disposition: Pending improvement in clinical condition All questions answered time spent: > 35 min MAURICE RONDON MD Mar 14, 2025 10:02
[2025-03-14] MEDS ORDERED: COMPOUND IV REFRIGERATED 1 EACH IVSOLN MISC PRN (10:30)
[2025-03-14] MEDS: hydrALAZine 20MG/ML VIAL IV PRN (11:19)
[2025-03-14] MEDS: cefTRIAXone 1G VIAL IVPB SCH (11:19)
[2025-03-14] MEDS: PANTOPrazole 40MG INJ 80 MG in 0.9%NACL 100ML 100 ML IV SCH (11:19)
[2025-03-14] MEDS: octREOtide aceTATe 1,250 MCG in 0.9% NACL 250ML 250 ML IV SCH (11:20)
[2025-03-14] MEDS ORDERED: LACTULOSE PO PRN (11:30)
[2025-03-14] MEDS ORDERED: HYDROcodone/APAP 5/325 1 TAB TABLET PO PRN (11:30)
--- NOTE | 2025-03-14 11:35 | HMCIMG ---
CHEST 1VW HISTORY: Hypotension COMPARISON: 03/03/2025 FINDINGS: A frontal projection of the chest was obtained. No acute pulmonary infiltrates is seen. The heart is borderline enlarged. Degenerative changes are seen. Prominent interstitial markings are seen. No evidence of aortic calcification is seen. IMPRESSION: 1. No acute pulmonary infiltrate is seen.
--- NOTE | 2025-03-14 13:30 | NUR ---
U/S GD PARACENTESIS PROCEDURE PERFORMED BY DR TANG. PUNCTURE SITE LLQ AND PATIENT TOLERATED PROCEDURE WELL. TOTAL REMOVED 3.5 LITERS OF YELLOW MILKY FLUID. END OF PROCEDURE AT 1320. CATHETER REMOVED AND DRESSING APPLIED. NO BLEEDING NOTED. REPORT GIVEN TO EMMANUEL CARRIZALES AND PATIENT TRANSPORTED TO [facility] VIA BED. AAO X3 WITH NO C/O PAIN. SPECIMEN SENT TO LAB.
[2025-03-14 15:05] LABS: HEMATOCRIT 30.9 % (36-48); MEAN CORPUSCULAR HEMOGLOBIN 31.8 pg (27.0-33.0); MEAN CORPUSCULAR VOLUME 96.3 fL (79-99); RED BLOOD CELL COUNT(AUTO) 3.21 MIL/uL (4.00-5.50); RED CELL DISTRIBUTION WIDTH 14.5 % (11.0-15.5); WHITE BLOOD COUNT (AUTO) 8.4 K/uL (4.8-10.8)
[2025-03-14] MEDS: ZOSYN 3.375GM +NS 50ML IV SCH (15:20)
[2025-03-14 15:29] LABS: APPEARANCE BODY FLUID CLOUDY (CLEAR); COLOR,BODY FLUID LT YELLOW (LT YELLOW); SPECIMENTYPE,BODY FLUID ASCITES; TOTAL VOLUME,BODY FLUID 3500 mL
[2025-03-14 15:33] LABS: BODY FLUID RBC 135 /cu. mm.; BODY FLUID WBC 125 /cu. mm.
--- NOTE | 2025-03-14 15:37 | NUR ---
CALLLED DR. RONDON AND MADE MD AWARE OF PATIENT'S HIGH BLOOD PRESSURES. PER DR. RONDON, PATIENT TO RECEIVE BLOOD PRESSURE MEDICATION NOW AND TRANSFER TO THE ICU. TRUCKLOAD CHECKER NOTIFIED OF TRANSFER ORDER. PATIENT AND FAMILY MADE AWARE OF PLAN TO TRANSFER TO ICU.
[2025-03-14 16:08] LABS: AMYLASE,BODY FLUID 6 U/L; GLUCOSE,BODY FLUID 226 mg/dL (1-40); TOTAL PROTEIN,BODY FLUID 0.7 g/dL
[2025-03-14 16:09] LABS: ALBUMIN,BODY FLUID 0.1 g/dL
--- NOTE | 2025-03-14 16:45 | HMCSR ---
APPROVED REPORT EXAM: Two-dimensional and M-mode echocardiogram with Doppler and color Doppler. INDICATION ICD: Hypertension 2D Dimensions RVDd3.2 cmLVEF(%)63.7 (>50%)LA ESV INDEX (BP)27.38 mL/m2 IVSd1.3 (0.7-1.1cm)FS(%)34 % LVDd4.4 (3.8-5.6cm)LA (2D)4.6 (1.6-4.0cm) PWd1.4 (0.7-1.1cm)Ao Root(2D)3.2 (2.0-3.7cm) IVSs1.5 cmLVOT diam2.0 (1.8-2.4cm) LVDs2.9 (2.5-4.0cm) PWs2.2 cm Deformation Strain Apical 4-16.5 % Apical 2-14.7 % Apical 3-14.5 % Global Strain-15.2 % M-Mode Dimensions EPSS1.1 cm LA (MM)4.8 (1.6-4.0cm) Ao Root(MM)3.1 (2.0-3.7cm) Aortic Valve AoV Vmax3.3 m/Arik Peak GR43.4 mmHgLVOT Vmax1.5 m/s AoV VTI0.6 mAo Mean GR23.5 mmHgLVOT VTI0.29 m ALLI (VMAX)1.52 cm2AVA (VTI) 1.7 cm2 Mitral Valve MV E Vmax88.8 cm/sDECEL Oslf454 ms MV A Hikx415.9 cm/sP 1/2 T49 ms E/A ratio0.7MVA (PHT)4.5 cm2 TDI E/E' Suhhgw05.0E/E' Mqokgjr11.2 Medial E' Peak V5.54 cm/sLateral E' Peak V7.92 cm/s Pulmonary Valve PV Vmax1.9 m/sPV VTI0.32 mPV Mean GR9.9 mmHg PV Peak GR14.5 mmHg Tricuspid Valve TR Vmax2.5 m/sRAP (EST) 3 ktVqKTIA66.7 mmHg TR Peak GR27.7 mmHg Left Ventricle The left ventricle is normal size. Normal wall motion Mild concentric left ventricular hypertrophy. T he LVEF is > 65%. 3D volume EF 68%. indeterminate diastolic function Right Ventricle The right ventricle is normal size. The right ventricular systolic function is normal. RV GLS -23.0%. Atria The left atrium size is normal. The right atrium size is normal. Aortic Valve Aortic valve is trileaflet, mildly sclerotic. No aortic regurgitation is present. There is moderate a ortic valvular stenosis. AoV pk gradient 43mmHg, mean gradient 24mmHg. AoV area 1.5cm. Mitral Valve The mitral valve is mildly thickened. There is trivial mitral valve regurgitation noted. There is no mitral valve stenosis. Tricuspid Valve The tricuspid valve is normal in structure. There is trace of tricuspid valve regurgitation noted. Pulmonic Valve The pulmonary valve is normal in structure. There is no pulmonic valvular regurgitation. Great Vessels The aortic root is normal in size. The IVC is normal in size and collapses >50% with inspiration. Pericardium There is no pericardial effusion. Other Information Quality : Adequate Conclusion The LVEF is > 65%. 3D volume EF 68%. Mild concentric left ventricular hypertrophy. The left ventricle is normal size. indeterminate diastolic function Normal wall motion There is moderate aortic valvular stenosis. AoV pk gradient 43mmHg, mean gradient 24mmHg. AoV area 1. 5cm. There is no pericardial effusion. Study quality was adequate
--- NOTE | 2025-03-14 17:48 | NUR ---
REPORT CALLED TO NICKI, APPARATUS CLEANER. PATIENT TRANSFERRED TO ROOM 207. DAUGHTER, KERI SHEN MADE AWARE OF THE TRANSFER.
--- NOTE | 2025-03-14 18:12 | NUR ---
Patient transferred from room 332 to room 207 for ICU care. No signs of distress noted.
--- NOTE | 2025-03-14 18:39 | HMCIMG ---
US ABDOMINAL PARACENTESIS IR HISTORY: Ascites COMPARISON: None TECHNIQUE: Informed consent was obtained. Risks and benefits were explained to the patient. A timeout was performed. Patient was prepped and draped in a sterile fashion. Local anesthetics was given as required. Under ultrasound guidance, ascites fluid was localized. Paracentesis was performed. FINDINGS: 3.5 L of yellowish fluid was aspirated. Less than 2 cc blood loss is noted. Patient tolerated procedure without complication. Patient left the department in good condition. IMPRESSION: 1. Uncomplicated ultrasound-guided paracentesis.
[2025-03-14] MEDS: niCARDIpine 25MG INJ 25 MG in 0.9% NACL 250ML 240 ML IV SCH (18:46)
[2025-03-14 18:48] LABS: BF LYMPHOCYTE 17 %; BF MACROPHAGE 56; BF MONOCYTE 1 %; BF OTHER CELLS 1; BF TOTAL CELLS COUNTED 100
[2025-03-14] MEDS: citaLOPram 20 MG TABLET PO SCH (20:03)
[2025-03-14] MEDS: mirtAZAPine 15 MG TABLET PO SCH (20:03)
[2025-03-14] MEDS: atorVAStatin 20 MG TABLET PO SCH (20:03)
--- NOTE | 2025-03-14 20:08 | HMCIMG ---
ABD 1VW HISTORY: Abdominal pain COMPARISON: None FINDINGS: A frontal projection of the abdomen was obtained. Small bowel dilatation is seen. Postop changes are seen of the lower lumbar spine. Fecal material is seen in the colon. Degenerative changes of the thoracolumbar spine are noted. IMPRESSION: 1. Mild small bowel dilatation.
[2025-03-14] MEDS: INSULIN GLARgine 100 UNITS/ML 10 ML VIAL SQ SCH (20:11)
[2025-03-14 21:11] LABS: HEMATOCRIT 31.8 % (36-48); MEAN CORPUSCULAR HEMOGLOBIN 31.5 pg (27.0-33.0); MEAN CORPUSCULAR HGB CONC 32.7 g/dL (32.0-36.0); MEAN CORPUSCULAR VOLUME 96.4 fL (79-99); RED BLOOD CELL COUNT(AUTO) 3.3 MIL/uL (4.00-5.50); RED CELL DISTRIBUTION WIDTH 14.4 % (11.0-15.5); WHITE BLOOD COUNT (AUTO) 9.3 K/uL (4.8-10.8)
--- NOTE | 2025-03-14 22:07 | PN ---
INFECTIOUS DISEASE FOLLOWUP NOTE DATE OF SERVICE: 03/14/2025. SUBJECTIVE: The patient is seen and examined at bedside. No fever or chills. No nausea or vomiting. Abdominal pain is better. The patient underwent paracentesis and 3.5 L removed. The patient has been seen by Gastroenterology and plan is for EGD. PHYSICAL EXAMINATION: VITAL SIGNS: Temperature 97.3. EYES: No icterus. Pupils equal and reactive. HENT: No oral thrush seen. Moist oral mucosa. NECK: Supple. No JVD or thyromegaly. LUNGS: Good air entry. No rales. No rhonchi. CARDIOVASCULAR: S1, S2, regular. No murmur heard. ABDOMEN: Full, soft, nontender. Bowel sound is present. CENTRAL NERVOUS SYSTEM: The patient is awake, alert, and oriented x 3. No focal deficits. SKIN: No rashes, no itchiness. LYMPHATIC: No peripheral lymphadenopathy. BACK: No deformity. No pressure ulcer. HEMATOLOGIC: No bleeding or petechial lesions seen. ASSESSMENT: An 79-year-old female with multiple problems including: * UTI. * Infection with multidrug resistant organism. * Liver cirrhosis. * Status post paracentesis. * Debility. * Anemia. * Possible esophageal varices. PLAN: * Discontinue ceftriaxone. * Start the patient on Zosyn. * Follow up cultures. * Continue pain management. * Continue nutritional support. * Monitor electrolytes. * Monitor hemoglobin and hematocrit. TID: [id number] RECEIPT: [id number]
[2025-03-15] VITALS (65 sets, daily range): BP systolic 134–180; BP diastolic 54–94; PULSE 67–93; RESP 13–32; TEMP 98.3–99.5; O2SAT 98–99
[2025-03-15] MEDS: levoTHYROxine 100 MCG TABLET PO SCH (04:48)
[2025-03-15 04:49] LABS: HEMATOCRIT 33.7 % (36-48); MEAN CORPUSCULAR HEMOGLOBIN 31.4 pg (27.0-33.0); MEAN CORPUSCULAR HGB CONC 31.5 g/dL (32.0-36.0); MEAN CORPUSCULAR VOLUME 99.7 fL (79-99); RED BLOOD CELL COUNT(AUTO) 3.38 MIL/uL (4.00-5.50); RED CELL DISTRIBUTION WIDTH 14.5 % (11.0-15.5); WHITE BLOOD COUNT (AUTO) 7.8 K/uL (4.8-10.8)
[2025-03-15 05:12] LABS: ALBUMIN 2.4 g/dL (3.5-5.0); BILIRUBIN,TOTAL 1.2 mg/dL (0.2-1.0); CREATININE 0.9 mg/dL (0.5-1.0); POTASSIUM 4.7 mmol/L (3.5-5.1); TOTAL PROTEIN, SERUM 6.5 g/dL (6.0-8.3)
[2025-03-15] MEDS: IRON sUCROse COMPLEX 100 MG/5 ML VIAL IV SCH (08:28)
--- NOTE | 2025-03-15 08:37 | CONS ---
[facility] CONSULTATION NOTE Date Patient Seen: Mar 15, 2025 Time of Visit: 08:37 Supervising Physician: [Lazaro Rueda MD ] Reason for Consultation: [CCM hypertensive urgency ] Primary Care Physician: [Jaison Gibson MD ] Outpatient Specialists: [ ] Inpatient Consults: [DR Watkins, DR Lomas, ] Attending physician: Jefry PROBLEM LIST: Sepsis, POA Hypertensive Urgency POA Requiring cardene gtt Moderate aortic valve stenosis on 2D echo 03/14/25 with LVEF > 65% Acute complicated cystitis secondary to Enterococcus faecium and E coli ESBL Liver cirrhosis, POA MELD Score of 7 (<2% risk of three months mortality) Moderate ascites, POA S/P ultrasound-guided paracentesis 03/14/2025 with removal of 3.5 L of yellowish fluid (SBP ruled out) Abdominal Esophageal varices POA Acute GI bleed, POA Iron deficiency anemia, POA Moderate malnutrition, POA Uncontrolled diabetes mellitus type 2 Mild small bowel dilation on KUB 03/14/25 Obesity BMI of 37.6 HPI: [This is an 79-year-old obese female with a past medical history of type 2 diabetes mellitus, hypertension, hyperlipidemia, hypothyroidism, fibromyalgia, and depression who presented to the ED for complaints of generalized abdominal pain x [address] of the abdomen showed cirrhosis of the liver and moderate ascites. She is noted to have anasarca and reports having loose stools. Patient was admitted by hospitalist team for further evaluation and medical management to the medical floor. For she underwent a paracentesis and a transfusion of 1 unit of PRBCs for acute anemia. Overnight she was transferred for increased blood pressure unable to control. Systolic blood pressure greater than 200 and was started on Cardene drip. This morning patient is awake alert and oriented x3. Blood pressure is improving on Cardene drip in weaning down to 2.5 milligrams/hour. Metoprolol was increased to 50 mg b.i.d. and amlodipine 10 mg p.o. daily added. To diurese started spironolactone 50 mg b.i.d. and Lasix 20 mg p.o. b.i.d.. There is no apparent distress at this time. She is pending endoscopy procedure for today. We will continue to wean Cardene drip off. PAST MEDICAL HX: see above PAST SURGICAL HX: noncontributory SOCIAL HISTORY: No tobacco, ETOH, or illicit drug use Coded Allergies: Sulfa (Sulfonamide Antibiotics) (Unverified Allergy, Unknown, 09/14/17) naproxen (Unverified Allergy, Unknown, 09/18/22) phenazopyridine (Unverified Allergy, Unknown, 09/14/17) levofloxacin (Unverified Adverse Reaction, Unknown, SHORTNESS OF BREATH, 03/01/25) REVIEW OF SYSTEMS: 12 point ROS reviewed with patient. Pertinent positives mentioned above. Otherwise negative. PHYSICAL EXAM: GENERAL: alert, weak, awake oriented x 3 HEENT: EOMI, Sclera non icteric, moist mucosa NECK: Supple, no JVD, trachea midline LUNGS: Diminished breath sounds bilaterally. No wheezes HEART: Regular rate and rhythm. Normal S1 and S2, without murmurs ABD: Abdomen soft, nontender. Bowel sounds present EXT: No clubbing cyanosis, swelling to BLE , anasarca NEURO: Alert and oriented to person, follows commands Vital Signs (last 8hr) Date Time Temp Pulse Resp B/P (MAP) Pulse Ox O2 Delivery O2 Flow Rate FiO2 03/15/25 07:00 77 17 158/57 (90) 95 03/15/25 06:45 74 14 148/63 (91) 96 03/15/25 06:30 79 21 150/68 (95) 98 03/15/25 06:15 76 18 157/56 (89) 98 03/15/25 06:00 77 15 156/55 (88) 97 03/15/25 05:45 88 29 134/90 (105) 97 03/15/25 05:30 93 21 162/59 (93) 97 03/15/25 05:15 81 13 166/64 (98) 98 03/15/25 05:00 76 15 160/75 (103) 98 03/15/25 04:45 78 17 149/65 (93) 97 03/15/25 04:30 81 14 171/71 (104) 97 03/15/25 04:15 75 22 163/75 (104) 97 03/15/25 04:00 98.2 73 18 159/63 (95) 97 03/15/25 04:00 99 Nasal Cannula* 2 28 03/15/25 04:00 98.2 Nasal Cannula 2.0 28 03/15/25 03:45 81 15 153/72 (99) 97 03/15/25 03:30 76 17 135/72 (93) 97 03/15/25 03:15 75 14 143/54 (83) 97 03/15/25 03:00 73 18 147/65 (92) 97 03/15/25 02:45 75 18 155/93 (113) 97 03/15/25 02:30 80 17 154/66 (95) 97 03/15/25 02:15 81 14 160/73 (102) 97 03/15/25 02:00 80 16 148/61 (90) 96 03/15/25 01:45 80 16 138/65 (89) 98 03/15/25 01:30 79 15 139/55 (83) 97 03/15/25 01:15 75 18 135/54 (81) 96 03/15/25 01:00 75 15 144/70 (94) 96 03/15/25 00:45 78 15 138/55 (82) 97 LABS: Hematology Labs: Test 03/15/25 04:36 03/14/25 04:41 Range/Units White Blood Count 7.8 4.8-10.8 K/uL Red Blood Count 3.38 L 4.00-5.50 MIL/uL Hemoglobin 10.6 L 12.0-16.0 g/dL Hematocrit 33.7 L 36-48 % Mean Corpuscular Volume 99.7 H 79-99 fL Mean Corpuscular Hemoglobin 31.4 27.0-33.0 pg Mean Corpuscular Hemoglobin Concent 31.5 L 32.0-36.0 g/dL Red Cell Distribution Width 14.5 11.0-15.5 % Platelet Count 89 L 130-400 K/uL Mean Platelet Volume 10.7 H 7.5-10.5 fL Nucleated Red Blood Cells 0.0 0.0-0.19 % Immature Granulocyte % (Auto) 0.7 0-1 % Neutrophils (%) (Auto) 72.3 40.0-77.0 % Lymphocytes (%) (Auto) 15.1 L 21.0-51.0 % Monocytes (%) (Auto) 10.0 3.0-13.0 % Eosinophils (%) (Auto) 1.8 0.0-8.0 % Basophils (%) (Auto) 0.1 0.0-5.0 % Neutrophils # (Auto) 5.5 1.8-7.7 K/uL Lymphocytes # (Auto) 1.1 1.0-4.8 K/uL Monocytes # (Auto) 0.8 0.1-1.0 K/uL Eosinophils # (Auto) 0.14 0.00-0.70 K/uL Basophils # (Auto) 0.01 0.00-0.20 K/uL Absolute Immature Granulocyte (auto 0.05 0-1 K/uL Chemistry Labs: Test 03/15/25 04:36 03/14/25 19:46 03/14/25 04:41 03/13/25 10:18 Range/Units Sodium Level 141 136-145 mmol/L Potassium Level 4.7 3.5-5.1 mmol/L Chloride Level 108 101-111 mmol/L Carbon Dioxide Level 25 21-32 mmol/L Blood Urea Nitrogen 20 H 7-18 mg/dL Creatinine 0.9 0.5-1.0 mg/dL Glomerular Filtration Rate Calc 65 >90 mL/min Random Glucose 166 H 70-105 mg/dL Total Calcium 8.5 8.5-10.1 mg/dL Magnesium Level 2.00 1.80-2.40 mg/dL Total Bilirubin 1.2 H 0.2-1.0 mg/dL Aspartate Amino Transf (AST/SGOT) 55 H 10-37 U/L Alanine Aminotransferase (ALT/SGPT) 53 12-78 U/L Alkaline Phosphatase 154 H 50-136 U/L Total Protein 6.5 6.0-8.3 g/dL Albumin 2.4 L 3.5-5.0 g/dL Triglycerides Level 122 30-200 mg/dL Cholesterol Level 186 <200 mg/dL LDL Cholesterol 80 0-99 mg/dL HDL Cholesterol 86 H 35-85 mg/dL Whole Blood Glucose 163 H 70-110 MG/DL Phosphorus Level 3.1 2.5-4.9 mg/dL Thyroid Stimulating Hormone (TSH) 1.32 # 0.36-3.74 uIU/mL Hemoglobin A1c 8.1 H 4.0-6.0 % Estimated Average Glucose (eAG) 186 H 70-126 mg/dL Iron Level 34 #L 50-170 mcg/dL Total Iron Binding Capacity 186 L 250-450 mcg/dL Percent Iron Saturation 18.2 L 22-44 % Coagulation Labs: Test 03/14/25 04:41 Range/Units Prothrombin Time 10.9 9.6-11.6 SEC Prothromb Time International Ratio 1.03 0.85-1.15 Activated Partial Thromboplast Time 23.5 L 26.3-35.5 SEC DIAGNOSTICS / RADIOLOGY RESULTS: [[facility] [address] [place] [address] IMAGING REPORT Signed PATIENT: MOISÉS SHUKLA MR#: [id number] : 1945 SEX: F AGE: 79 LOCATION: 2BH ORDER 29 STATUS: ADM IN REPORT#: [id number] SERVICE 29 REASON: Abdomen pain ORDERING PHYSICIAN: IVA LOMAS MD PROCEDURE: ABD 1VW - ABD 1VW ABD 1VW HISTORY: Abdominal pain COMPARISON: None FINDINGS: A frontal projection of the abdomen was obtained. Small bowel dilatation is seen. Postop changes are seen of the lower lumbar spine. Fecal material is seen in the colon. Degenerative changes of the thoracolumbar spine are noted. IMPRESSION: 1. Mild small bowel dilatation. DICTATED BY: ZOE TANG MD DATE: 03/14/252004 ELECTRONICALLY SIGNED BY: ZOE TANG MD DATE: 03/14/252007 [facility] [address] [place], [place] [id number] IMAGING REPORT Signed PATIENT: MOISÉS SHUKLA MR#: [id number] : 1945 SEX: F AGE: 79 LOCATION: 3AH ORDER 1000 STATUS: ADM IN REPORT#: [id number] SERVICE REASON: hypertension ORDERING PHYSICIAN: MAURICE RONDON MD PROCEDURE: ECHO CMP - ECHO 2-D COMPLETE APPROVED REPORT EXAM: Two-dimensional and M-mode echocardiogram with Doppler and color Doppler. INDICATION ICD: Hypertension 2D Dimensions RVDd 3.2 cm LVEF(%) 63.7 (>50%) LA ESV INDEX (BP) 27.38 mL/m2 IVSd 1.3 (0.7-1.1cm) FS(%) 34 % LVDd 4.4 (3.8-5.6cm) LA (2D) 4.6 (1.6-4.0cm) PWd 1.4 (0.7-1.1cm) Ao Root(2D) 3.2 (2.0-3.7cm) IVSs 1.5 cm LVOT diam 2.0 (1.8-2.4cm) LVDs 2.9 (2.5-4.0cm) PWs 2.2 cm Deformation Strain Apical 4 -16.5 % Apical 2 -14.7 % Apical 3 -14.5 % Global Strain -15.2 % M-Mode Dimensions EPSS 1.1 cm LA (MM) 4.8 (1.6-4.0cm) Ao Root(MM) 3.1 (2.0-3.7cm) Aortic Valve AoV Vmax 3.3 m/s Ao Peak GR 43.4 mmHg LVOT Vmax 1.5 m/s AoV VTI 0.6 m Ao Mean GR 23.5 mmHg LVOT VTI 0.29 m ALLI (VMAX) 1.52 cm2 ALLI (VTI) 1.7 cm2 Mitral Valve MV E Vmax 88.8 cm/s DECEL Time 151 ms MV A Vmax 126.9 cm/s P 1/2 T 49 ms E/A ratio 0.7 MVA (PHT) 4.5 cm2 TDI E/E' Medial 16.0 E/E' Lateral 11.2 Medial E' Peak V 5.54 cm/s Lateral E' Peak V 7.92 cm/s Pulmonary Valve PV Vmax 1.9 m/s PV VTI 0.32 m PV Mean GR 9.9 mmHg PV Peak GR 14.5 mmHg Tricuspid Valve TR Vmax 2.5 m/s RAP (EST) 3 mmHg RVSP 30.7 mmHg TR Peak GR 27.7 mmHg Left Ventricle The left ventricle is normal size. Normal wall motion Mild concentric left ventricular hypertrophy. The LVEF is > 65%. 3D volume EF 68%. indeterminate diastolic function Right Ventricle The right ventricle is normal size. The right ventricular systolic function is normal. RV GLS -23.0%. Atria The left atrium size is normal. The right atrium size is normal. Aortic Valve Aortic valve is trileaflet, mildly sclerotic. No aortic regurgitation is present. There is moderate aortic valvular stenosis. AoV pk gradient 43mmHg, mean gradient 24mmHg. AoV area 1.5cm. Mitral Valve The mitral valve is mildly thickened. There is trivial mitral valve regurgitation noted. There is no mitral valve stenosis. Tricuspid Valve The tricuspid valve is normal in structure. There is trace of tricuspid valve regurgitation noted. Pulmonic Valve The pulmonary valve is normal in structure. There is no pulmonic valvular regurgitation. Great Vessels The aortic root is normal in size. The IVC is normal in size and collapses >50% with inspiration. Pericardium There is no pericardial effusion. Other Information Quality : Adequate Conclusion The LVEF is > 65%. 3D volume EF 68%. Mild concentric left ventricular hypertrophy. The left ventricle is normal size. indeterminate diastolic function Normal wall motion There is moderate aortic valvular stenosis. AoV pk gradient 43mmHg, mean gradient 24mmHg. AoV area 1.5cm. There is no pericardial effusion. Study quality was adequate DICTATED BY: SANCHEZ JEONG MD DATE: 03/14/25 1137 ELECTRONICALLY SIGNED BY: SANCHEZ JEONG MD DATE: 03/14/25 164[address] [place] [address] IMAGING REPORT Signed PATIENT: MOISÉS SHUKLA MR#: [id number] : 1945 SEX: F AGE: 79 LOCATION: 3AH ORDER 1000 STATUS: ADM IN [facility] REPORT#: [id number] SERVICE 0959 REASON: hypertension ORDERING PHYSICIAN: MAURICE RONDON MD PROCEDURE: CXR1VW - CHEST 1VW CHEST 1VW HISTORY: Hypotension COMPARISON: 03/03/2025 FINDINGS: A frontal projection of the chest was obtained. No acute pulmonary infiltrates is seen. The heart is borderline enlarged. Degenerative changes are seen. Prominent interstitial markings are seen. No evidence of aortic calcification is seen. IMPRESSION: 1. No acute pulmonary infiltrate is seen. DICTATED BY: ZOE TANG MD DATE: 03/14/25 1134 ELECTRONICALLY SIGNED BY: ZOE TANG MD DATE: 03/14/25 1138 [facility] [address] [address] IMAGING REPORT Signed PATIENT: MOISÉS SHUKLA MR#: [id number] : 1945 SEX: F AGE: 79 LOCATION: EDHIP ORDER 0304 STATUS: ADM IN REPORT#: [id number] SERVICE 1 REASON: distended abdomen, new onset liver cirrhosis ORDERING PHYSICIAN: LIA CALDWELL PROCEDURE: ABDOMEN - US ABDOMINAL COMPLETE US ABDOMINAL COMPLETE HISTORY: Distended abdomen COMPARISON: None TECHNIQUE: Multiple transverse and longitudinal ultrasound images of the abdomen were obtained. FINDINGS: Abdominal aorta and inferior vena cava are unremarkable. The visualized portion of the pancreas is within normal limits. Liver measures 16 cm. Liver is echogenic consistent with liver parenchymal disease. Gallbladder has been removed by history. Common duct measures 2.7 mm. Small ascites is seen. Right kidney is not seen due to overlying bowel gas. Left kidney measures 10 x 5 cm. No hydronephrosis is seen of the left kidney. The study is limited due to overlying bowel gas and patient body habitus. Spleen measures 11 cm. The spleen is grossly unremarkable. IMPRESSION: 1. Cholecystectomy. No ductal dilatation is seen. 2. Right kidney is not visualized and cannot be fully evaluated. No hydronephrosis is seen left kidney. DICTATED BY: ZOE TANG MD DATE: 03/13/25 0778 ELECTRONICALLY SIGNED BY: OZE TANG MD DATE: 03/13/25 0789 [facility] [address] [address] IMAGING REPORT Signed PATIENT: MOISÉS SHUKLA MR#: [id number] : 1945 SEX: F AGE: 79 LOCATION: EDHIP ORDER 0056 STATUS: ADM IN REPORT#: [id number] SERVICE REASON: abdominal distension , diffuse tenderness and diarrhea ORDERING PHYSICIAN: RADHA STAHL MD PROCEDURE: ABD PEL WO - CT ABDOMEN/PELVIS W/O CONTRAST CT ABDOMEN/PELVIS W/O CONTRAST HISTORY: Abdominal distention COMPARISON: 11/17/2003 TECHNIQUE: Multiple sequential axial images of the abdomen and pelvis were obtained from the dome of the diaphragm through symphysis pubis. Patient was not given contrast through intravenous route. Oral contrast was not given. FINDINGS: No pleural effusion is seen bilaterally. Bilateral lower lung. Atelectasis changes are seen. Degenerative changes of the thoracolumbar spine are present. The heart is borderline enlarged. Coronary artery calcifications are seen. Cirrhotic changes of the liver are noted. Liver measures 15 cm. Spleen is borderline enlarged measuring 12 cm. There are abdominal and esophageal varices. Pancreas is atrophic. There is fluid noted within the esophagus with dilatation may be related to reflux disease. Adrenal glands and pancreas are unremarkable. There is no evidence of hydronephrosis bilaterally. No evidence of renal stone is seen. Fecal material is seen in the colon. There are normal size retroperitoneal and mesenteric lymph nodes. There is ascites. Atherosclerotic changes are present. Pelvic sidewalls are symmetric bilaterally. Bladder is moderately distended. IMPRESSION: 1. Cirrhotic liver with volume loss plane. Moderate ascites. Abdominal and esophageal varices. CT was performed with one or more following dose reduction techniques: automated exposure control, adjustment of the mA and kv according to patient's size, or use of a iterative reconstruction technique. DICTATED BY: ZOE TANG MD DATE: 03/13/2514 ELECTRONICALLY SIGNED BY: ZOE TANG MD DATE: 03/13/2519 PLAN Monitor 90s lactic acid, white count and urine output Daily labs including BNP CBC and LFTs NEURO: Minimize central acting medications as possible. Fall Precautions. Well lighted room through the day and minimize interruptions through the night to prevent acute delirium. PULMONARY: Supplemental 02 as needed Titrate Fio2 to keep Spo2 > or = 90% DuoNebs and CPT as needed IS hourly while awake for pulmonary hygiene Out of bed to chair as tolerated VAP Bundle CARDIOVASCULAR: Follow hemodynamics. Titrate vasopressor to keep MAP >65 or systolic blood pressure >95mmHg Moderate aortic valve stenosis - avoid excessive preload and afterload changes. Monitor for signs since decompensation heart failure DRIPS: [ Cardene ]-continue to maintain SBP less than 160 Titrate to map goals monitor for hypotension due to sepsis. LINES: [ PIV] GI & NUTRITION: NPO for now. Aspirations precautions Prokinetic agents and laxatives as needed moderate ascites. Low-sodium diet, Continue nonselective beta blockers Protonix 40 mg IV push b.i.d. Monitor for signs of decompensated liver failure, encephalopathy elevated INR and bilirubin KIDNEYS & ELECTROLYTES: Strict monitoring of intake and output Daily weights Avoid nephrotoxic agents Monitor electrolytes and replace as needed Goal urine output of 30mL/hr or 0.5mL/kg/hr Urine output: [ ] Fluid Balance: [ ] ENDOCRINE: Maintain blood glucose between 100-180 at all times. Insulin sliding scale for blood glucose management INFECTIOUS DISEASE: Trend temperature. Abdul-culture if febrile. Micro: [ ] ascites fluids- Urine culture -growing Enterococcus Faecium and E coli Antibiotics: [ ] Continue meropenem HEMATOLOGY & COAGULATION: Monitor H&H. Keep Hgb > 7 Transfuse 1 unit of PRBC for Hgb < 7 Transfuse 1 pack of platelets of platelets < 20, 000 Watch for any sig for acute GI bleed 92 hemoglobin daily, drip IV I if no ongoing active bleeding. Follow GI recommendations in regards to endoscopy. SKIN: Pressure ulcer prevention per facility protocol Rehab: PT/OT Prophylaxis: GI: [Protonix ] DVT: [SCDs ] Code Status: Full Resuscitation Disposition: [ ] Other: Total patient care time exceeds 35 minutes excluding all procedures. Case was discussed and seen with my supervising physician. The above plan was formulated and agreed upon. ATTESTATION BY PHYSICIAN I have evaluated the patient chart, medical records, and spoke with appropriate staff. I reviewed the documentation, medical decision making, and treatment plan as noted by the mid-level provider above. I agree with the findings and plan of care. Jordan Servin MD ATTESTATION BY PHYSICIAN I attest that I reviewed and discussed the case with the Physician Water Project Engineer as well as agree with the Physician Water Project Engineer's findings, plans of care, and documentation above. Lazaro Meehan MD, NELLY [facility] Mar 15, 2025 08:37
[2025-03-15] MEDS: metoPROLOL tartRATE 50 MG TAB PO SCH (09:00)
[2025-03-15] MEDS: furoSEMIDE 20 MG TABLET PO SCH (09:00)
[2025-03-15] MEDS: amLODIPine 5 MG TAB PO SCH (10:31)
[2025-03-15] MEDS: metoPROLOL tartRATE 25 MG TAB PO ONE (10:31)
--- NOTE | 2025-03-15 10:59 | PN ---
[facility] PROGRESS NOTE Date of Service: Mar 15, 2025 Time of Service: 10:53 SUBJECTIVE: Ms. Arias is an 79-year-old female that was seen and examined on 03/13/2025. Patient is a good historian of personal health Patient stated she came to the emergency department with a chief complaint of abdominal pain. Location is to bilateral upper quadrants. Duration is constant. Character is described as sharp. There was no alleviating factors. Symptoms are aggravated with movement. She denied any associated nausea or vomiting. CT abdomen and pelvis shows cirrhotic liver with volume loss plane, moderate ascites, abdominal and esophageal varices. Ultrasound abdomen showing cholecystectomy, not ductal dilatation, right kidney not visualized and can not be fully evaluated, no hydronephrosis seen left kidney. Patient admitted for further evaluation and medical management 03/14 patient admitted to the medical floor, BP 182/87, heart rate of 105, afebrile, saturating normal on room air, hemoglobin stable at 9.7, hematocrit 30.0, WBC 7.6, platelet count of 88, sodium 142, potassium 4.2, BUN of 25, creatinine 0.8, total calcium 8.6, phosphorus 3.1, magnesium 2.2, iron level 34, liver enzymes with a total bilirubin 0.7, AST of 43, ALT of 57, albumin 2.4 Patient remains admitted to the medical floor GI consultation requested, we will follow input and recommendation, patient scheduled for EGD today. We will start the patient on Protonix and octreotide drip CBC q.8 hours, transfuse 1 unit of PRBC if hemoglobin less than eight Start the patient on Venofer 200 mg IV daily for three days IR consultation requested for ultrasound-guided paracentesis, both diagnostic and therapeutic, fluid will be sent for analysis including cytology We will request dietitian consultation Start empiric antibiotics with Rocephin 1 g IV daily, follow results of urine culture and adjust antibiotics accordingly Add metoprolol 25 mg p.o. b.i.d. to current BP management, as well as hydralazine 5 mg IV every 6 hours as needed for SBP greater than 160 Chest x-ray and echocardiogram to evaluate ejection fraction Patient with a hemoglobin A1c of 8.1 continue insulin sliding scale, add Lantus 10 units subcutaneously at bedtime, continue to adjust as needed Home medications reviewed and reconciled 03/15 patient was upgraded to the ICU for Cardene drip, as the patient had yesterday a blood pressure greater than 200 systolic, patient had EGD done in the morning so blood pressure medication by mouth were on hold. Today BP 158/57, afebrile, saturating 98% on room air. Patient on amlodipine 5 mg p.o. daily, metoprolol tartrate 50 mg p.o. b.i.d., furosemide 20 mg p.o. daily. CBC with a hemoglobin 10.6, hematocrit 33.7, WBC 7.8, with a platelet count of 89. Sodium 141, potassium 4.7, BUN of 20, creatinine 0.9, magnesium 2.0. Results of urine culture positive for Enterococcus faecium and E coli, ESBL, patient underwent successful ultrasound paracentesis 03/14/2025, with removal of 3.5 L of yellow fluid. Less than 2 cc of blood noted, patient tolerated the procedure well without complications, follow results of ascitic fluid culture, Patient currently on Zosyn IV. Infectious disease input noted and appreciated. Critical care consultation requested, follow input and recommendation. Echocardiogram done, reported as follows: Conclusion The LVEF is > 65%. 3D volume EF 68%. Mild concentric left ventricular hypertrophy. The left ventricle is normal size. indeterminate diastolic function Normal wall motion There is moderate aortic valvular stenosis. AoV pk gradient 43mmHg, mean gradient 24mmHg. AoV area 1.5cm. There is no pericardial effusion. Study quality was adequate During my visit the patient remains comfortably in bed, alert, following commands, she remains on Cardene drip, case discussed with the RN, no acute events overnight, home blood pressure medications already given. The patient is currently NPO, scheduled for EGD today. She remains on Protonix and octreotide drip. REVIEW OF SYSTEMS CONSTITUTIONAL: Denies fevers, chills, or night sweats. No unintentional weight loss reported. NEUROLOGICAL: Denies headache, amaurosis fugax, motor weakness, sensory deficit, vertigo/spinning sensation, gait abnormalities, or tremors. ENT: No hearing loss, otalgia, otorrhea, rhinitis, rhinorrhea, hoarseness, or sore throat. CARDIOVASCULAR: Denies any exertional angina, dyspnea on exertion, orthopnea, paroxysmal nocturnal dyspnea, palpitations, life-threatening arrhythmias, claudication. PULMONARY: Denies any shortness of breath, cough, phlegm/sputum, hemoptysis, pleuritic chest pain. SLEEP: Denies morning headaches, daytime somnolence or napping. Denies difficulty falling asleep, staying asleep, waking from sleep. Denies knowledge of snoring. GASTROINTESTINAL: Denies any type of dysphagia to either liquids or solids. Denies nausea, vomiting, pyrosis, early satiety, abdominal pain, diarrhea, constipation, or changes in stool consistency or caliber. Denies coffee-ground emesis, hematemesis, hematochezia, or melanotic stools. GENITOURINARY: Denies frequency, urgency, nocturia, hematuria or incontinence (Storage/Irritative symptoms.) Low urinary stream, straining to void, urinary intermittency or hesitancy, splitting of the voiding stream, terminal dribbling. ENDOCRINOLOGIC: Denies polyuria, polydipsia, polyphagia or heat/cold intolerances. HEMATOLOGIC: Denies thrombophilia/previous clots, or coagulopathy/bleeding disorders. ONCOLOGIC: Denies personal history of malignancy. DERMATOLOGIC: Denies rashes or pruritus. PSYCHIATRIC: Denies any suicidal or homicidal ideation. Denies hallucinations. PHYSICAL EXAM GENERAL APPEARANCE: The patient is awake, alert, and oriented, in no acute cardiopulmonary distress. NEUROLOGICAL: Cranial nerves II-XII grossly intact. Motor is 5/5 in bilateral upper and lower extremities proximal to distal. No sensory deficits. HEENT: Face is symmetric. Pupils are equal and reactive. Extraocular movements are intact. NECK: Supple. No JVD. No thyromegaly. No submental, submandibular, pre- /postauricular, occipital or supraclavicular lymphadenopathy. CHEST: Normal chest expansion. No Telemetry. LUNGS: Absence of any rales, rhonchi or any wheezing. CARDIOVASCULAR: Regular. S1 and S2 normal. No appreciable rubs, murmurs or gallops. ABDOMEN: Soft, nontender, and nondistended. There is no rebound, voluntary guarding, or rigidity. : Deferred. No Jasso. EXTREMITIES: Non-edematous and not cyanotic. No clubbing. Good capillary refill. SKIN: No skin breakdown. Vital Signs (last 8hr) Date Time Temp Pulse Resp B/P (MAP) Pulse Ox O2 Delivery O2 Flow Rate FiO2 03/15/25 07:00 77 17 158/57 (90) 95 03/15/25 06:45 74 14 148/63 (91) 96 03/15/25 06:30 79 21 150/68 (95) 98 03/15/25 06:15 76 18 157/56 (89) 98 03/15/25 06:00 77 15 156/55 (88) 97 03/15/25 05:45 88 29 134/90 (105) 97 03/15/25 05:30 93 21 162/59 (93) 97 03/15/25 05:15 81 13 166/64 (98) 98 03/15/25 05:00 76 15 160/75 (103) 98 03/15/25 04:45 78 17 149/65 (93) 97 03/15/25 04:30 81 14 171/71 (104) 97 03/15/25 04:15 75 22 163/75 (104) 97 03/15/25 04:00 98.2 73 18 159/63 (95) 97 03/15/25 04:00 99 Nasal Cannula* 2 28 03/15/25 04:00 98.2 Nasal Cannula 2.0 28 03/15/25 03:45 81 15 153/72 (99) 97 03/15/25 03:30 76 17 135/72 (93) 97 03/15/25 03:15 75 14 143/54 (83) 97 03/15/25 03:00 73 18 147/65 (92) 97 LABS: Laboratory: Test 03/15/25 04:36 03/14/25 19:46 03/14/25 13:30 03/14/25 04:41 Range/Units White Blood Count 7.8 4.8-10.8 K/uL Red Blood Count 3.38 L 4.00-5.50 MIL/uL Hemoglobin 10.6 L 12.0-16.0 g/dL Hematocrit 33.7 L 36-48 % Mean Corpuscular Volume 99.7 H 79-99 fL Mean Corpuscular Hemoglobin 31.4 27.0-33.0 pg Mean Corpuscular Hemoglobin Concent 31.5 L 32.0-36.0 g/dL Red Cell Distribution Width 14.5 11.0-15.5 % Platelet Count 89 L 130-400 K/uL Mean Platelet Volume 10.7 H 7.5-10.5 fL Nucleated Red Blood Cells 0.0 0.0-0.19 % Sodium Level 141 136-145 mmol/L Potassium Level 4.7 3.5-5.1 mmol/L Chloride Level 108 101-111 mmol/L Carbon Dioxide Level 25 21-32 mmol/L Blood Urea Nitrogen 20 H 7-18 mg/dL Creatinine 0.9 0.5-1.0 mg/dL Glomerular Filtration Rate Calc 65 >90 mL/min Random Glucose 166 H 70-105 mg/dL Total Calcium 8.5 8.5-10.1 mg/dL Magnesium Level 2.00 1.80-2.40 mg/dL Total Bilirubin 1.2 H 0.2-1.0 mg/dL Aspartate Amino Transf (AST/SGOT) 55 H 10-37 U/L Alanine Aminotransferase (ALT/SGPT) 53 12-78 U/L Alkaline Phosphatase 154 H 50-136 U/L Total Protein 6.5 6.0-8.3 g/dL Albumin 2.4 L 3.5-5.0 g/dL Triglycerides Level 122 30-200 mg/dL Cholesterol Level 186 <200 mg/dL LDL Cholesterol 80 0-99 mg/dL HDL Cholesterol 86 H 35-85 mg/dL Whole Blood Glucose 163 H 70-110 MG/DL Body Fluid Source ASCITES Body Fluid Volume 3500 mL Body Fluid Color LT YELLOW LT YELLOW Body Fluid Supernatant Appearance CLOUDY H CLEAR Body Fluid WBC 125 /cu. mm. Body Fluid RBC 135 /cu. mm. Body Fluid Neutrophils 25.0 % Body Fluid Lymphocytes 17 % Body Fluid Monocytes % 1 % Body Fluid Macrophages (%) 56 Body Fluid Other Cells (%) 1 Body Fluid Glucose 226 H 1-40 mg/dL Body Fluid Total Protein 0.7 g/dL Body Fluid Albumin 0.1 g/dL Body Fluid Lactate Dehydrogenase 34 U/L Body Fluid Amylase 6 U/L Immature Granulocyte % (Auto) 0.7 0-1 % Neutrophils (%) (Auto) 72.3 40.0-77.0 % Lymphocytes (%) (Auto) 15.1 L 21.0-51.0 % Monocytes (%) (Auto) 10.0 3.0-13.0 % Eosinophils (%) (Auto) 1.8 0.0-8.0 % Basophils (%) (Auto) 0.1 0.0-5.0 % Neutrophils # (Auto) 5.5 1.8-7.7 K/uL Lymphocytes # (Auto) 1.1 1.0-4.8 K/uL Monocytes # (Auto) 0.8 0.1-1.0 K/uL Eosinophils # (Auto) 0.14 0.00-0.70 K/uL Basophils # (Auto) 0.01 0.00-0.20 K/uL Absolute Immature Granulocyte (auto 0.05 0-1 K/uL Prothrombin Time 10.9 9.6-11.6 SEC Prothromb Time International Ratio 1.03 0.85-1.15 Activated Partial Thromboplast Time 23.5 L 26.3-35.5 SEC Phosphorus Level 3.1 2.5-4.9 mg/dL Thyroid Stimulating Hormone (TSH) 1.32 # 0.36-3.74 uIU/mL Test 03/13/25 11:50 Range/Units Urine Color YELLOW YELLOW Urine Appearance CLOUDY H CLEAR Urine pH 6.0 5.0-8.0 Urine Specific [place] 1.017 1.001-1.031 Urine Protein 200 H NEGATIVE mg/dL Urine Glucose (UA) 70 H NEGATIVE mg/dL Urine Ketones NEGATIVE NEGATIVE mg/dL Urine Occult Blood SMALL H NEGATIVE Urine Nitrate NEGATIVE NEGATIVE Urine Bilirubin NEGATIVE NEGATIVE mg/dL Urine Urobilinogen 0.2 0.2-1.0 mg/dL Urine Leukocyte Esterase NEGATIVE NEGATIVE Arturo/uL Urine RBC 6-10 H 0-1 /HPF Urine WBC 6-10 H 0-1 /HPF Urine Squamous Epithelial Cells FEW 0-2 /HPF Urine Bacteria FEW None Seen /HPF Current Medications Medications (Trade) Dose Ordered Sig/Isauro Route PRN Reason Start Time Stop Time Status Last Admin Dose Admin Acetaminophen (TYLenol 325MG TAB) 650 mg Q6H PRN PO TEMPERATURE GREATER THAN 101.5 03/13/25 04:30 04/12/25 04:29 Acetaminophen/ Hydrocodone Bitart (NORco 5/325MG) 1 tab Q4H PRN PO MODERATE PAIN (4-6) 03/14/25 11:30 03/19/25 11:29 Amlodipine Besylate (NorvASC 5MG TAB) 5 mg DAILY PO 03/15/25 09:00 04/14/25 08:59 03/15/25 10:31 5 MG Atorvastatin Calcium (LIPItor 20MG) 20 mg HS PO 03/14/25 21:00 04/13/25 20:59 03/14/25 20:03 20 MG Atorvastatin Calcium (LIPItor 40MG) 40 mg HS PO 03/13/25 21:00 03/14/25 11:42 DC 03/13/25 21:39 40 MG Ceftriaxone Sodium (ROCEphine 1G INJ) 1 gm Q24H IVPB 03/14/25 10:00 03/14/25 13:15 DC 03/14/25 11:19 1 GM Citalopram Hydrobromide (CeleXA 20MG TAB) 20 mg HS PO 03/14/25 21:00 04/13/25 20:59 03/14/25 20:03 20 MG Famotidine (Pepcid 20mg Tab) 20 mg DAILY PO 03/13/25 09:00 03/14/25 10:02 DC 03/13/25 09:04 20 MG Furosemide (LASix 20MG TAB) 20 mg DAILY PO 03/15/25 09:00 04/14/25 08:59 Hydralazine HCl (APRESOLine 20MG INJ) 5 mg Q6H PRN IV ADMINISTER FOR SBP > 160 03/14/25 10:00 03/15/25 08:35 DC 03/14/25 18:23 5 MG Hydralazine HCl (APRESOLine 20MG INJ) 10 mg Q6H PRN IV For:SBP above 160;DBP above 90 03/13/25 04:30 03/14/25 09:58 DC 03/14/25 03:46 10 MG Hydralazine HCl ([id number] TAB) 25 mg TID PO 03/13/25 12:30 04/12/25 12:29 03/15/25 08:28 25 MG Insulin Glargine (LANtus 100 UNITS/ML 10 ML VIAL) 10 units HS SQ 03/14/25 21:00 04/13/25 20:59 03/14/25 20:11 10 UNITS Insulin Human Regular (humuLIN R 100 UNIT/ML 3ML) INSULIN SLIDING SCAL... ACHS SQ 03/13/25 07:30 04/12/25 07:29 03/14/25 16:48 2 UNIT Iron Sucrose (VenoFER) 100 mg DAILY IV 03/14/25 09:00 03/14/25 09:58 DC 03/14/25 09:21 100 MG Iron Sucrose (VenoFER) 200 mg DAILY IV 03/15/25 09:00 03/16/25 09:01 03/15/25 08:28 200 MG Lactulose (Constulose 20gm/ 30ml Udcup) 20 gm BID PRN PO CONSTIPATION 03/13/25 03:30 04/12/25 03:29 Levothyroxine Sodium (SYNTHroid 100MCG TAB) 200 mcg SYN PO 03/15/25 06:30 04/14/25 06:29 Losartan Potassium (CozAAR 25MG TAB) 25 mg BID PO 03/13/25 21:00 03/13/25 12:08 DC Losartan Potassium (CozAAR 50 mg TAB) 50 mg BID PO 03/13/25 21:00 04/12/25 20:59 03/15/25 08:28 50 MG Metoprolol Tartrate (loprESSOR) 25 mg BID PO 03/14/25 10:00 03/15/25 08:28 DC 03/14/25 20:03 25 MG Metoprolol Tartrate (loprESSOR) 50 mg BID PO 03/15/25 09:00 04/14/25 08:59 Mirtazapine (REMeron 15 MG TAB) 15 mg HS PO 03/14/25 21:00 04/13/25 20:59 03/14/25 20:03 15 MG Miscellaneous Medication (Lactulose (Constulose)) 20 ml BID PRN PO constipation 03/14/25 11:30 03/14/25 11:40 DC Morphine Sulfate (morPHINE 2MG SYG) 2 mg Q4H PRN IVP SEVERE PAIN (7-10) 03/13/25 04:30 03/13/25 09:51 DC Morphine Sulfate (morPHINE 2MG SYG) 2 mg Q4H PRN IVP SEVERE PAIN (7-10) 03/14/25 00:30 03/21/25 00:29 03/15/25 09:47 2 MG Nicardipine HCl 25 mg/Sodium Chloride 250 ml @ 0 mls/hr PROTOCOL IV 03/14/25 18:30 04/13/25 18:29 03/15/25 00:48 50 MLS/HR Octreotide Acetate 1250 mcg/ Sodium Chloride 250 ml @ 0 mls/hr PROTOCOL IV 03/14/25 10:00 04/13/25 09:59 03/14/25 21:19 5 MLS/HR Ondansetron HCl (zoFRAN 4MG INJ) 4 mg Q6H PRN IV NAUSEA/VOMITING 03/13/25 04:30 04/12/25 04:29 03/13/25 17:06 4 MG Pantoprazole Sodium 80 mg/ Sodium Chloride 100 ml @ 10 mls/hr Q10H IV 03/14/25 10:00 04/13/25 09:59 03/15/25 10:19 10 MLS/HR Piperacillin Sod/ Tazobactam Sod (Zosyn 3.375gm+NS 50ml) 3.375 gm Q8H IV 03/14/25 13:30 03/24/25 13:29 03/15/25 04:50 3.375 GM DIAGNOSTICS / RADIOLOGY: [ ] ASSESSMENT: Sepsis, POA UTI secondary to Enterococcus faecium and E coli ESBL Liver cirrhosis, POA Moderate ascites, POA Status post ultrasound-guided paracentesis 03/14/2025 with removal of 3.5 L of yellowish fluid Acute GI bleed, POA Iron deficiency anemia, POA Moderate malnutrition, POA Hypertensive urgency, POA Uncontrolled diabetes mellitus type 2 PLAN: patient was upgraded to the ICU for Cardene drip, as the patient had yesterday a blood pressure greater than 200 systolic, patient had EGD done in the morning so blood pressure medication by mouth were on hold. Today BP 158/57, afebrile, saturating 98% on room air. Patient on amlodipine 5 mg p.o. daily, metoprolol tartrate 50 mg p.o. b.i.d., furosemide 20 mg p.o. daily. CBC with a hemoglobin 10.6, hematocrit 33.7, WBC 7.8, with a platelet count of 89. Sodium 141, potassium 4.7, BUN of 20, creatinine 0.9, magnesium 2.0. Results of urine culture positive for Enterococcus faecium and E coli, ESBL, patient underwent successful ultrasound paracentesis 03/14/2025, with removal of 3.5 L of yellow fluid. Less than 2 cc of blood noted, patient tolerated the procedure well without complications, follow results of ascitic fluid culture, Patient currently on Zosyn IV. Infectious disease input noted and appreciated. Critical care consultation requested, follow input and recommendation. Echocardiogram done, reported as follows: Conclusion The LVEF is > 65%. 3D volume EF 68%. Mild concentric left ventricular hypertrophy. The left ventricle is normal size. indeterminate diastolic function Normal wall motion There is moderate aortic valvular stenosis. AoV pk gradient 43mmHg, mean gradient 24mmHg. AoV area 1.5cm. There is no pericardial effusion. Study quality was adequate NEURO: Minimize central acting medications as possible. Fall Precautions. Well lighted room through the day and minimize interruptions through the night to prevent acute delirium. PULMONARY: Supplemental 02 as needed BiPAP as necessary, for respiratory distress Titrate Fio2 to keep Spo2 > or = 90% DuoNebs and CPT as needed IS hourly while awake for pulmonary hygiene prn Out of bed to chair as tolerated Maintain aspiration precautions at all times CARDIOVASCULAR: Follow hemodynamics. Vital signs per facility protocol GI & NUTRITION: Continue nutritional support Aspirations precautions Prokinetic agents and laxatives as needed KIDNEYS & ELECTROLYTES: Strict monitoring of intake and output Daily weights Avoid nephrotoxic agents Monitor electrolytes and replace as needed Goal urine output of 30mL/hr or 0.5mL/kg/hr Medications to be dosed according to renal function. Avoid contrast if possible ENDOCRINE: Maintain blood glucose between 100-180 at all times. Insulin sliding scale for blood glucose management Hypoglycemia and hyperglycemia protocol in place INFECTIOUS DISEASE: Trend temperature, WBC and procalcitonin level Follow cultures, deescalate antibiotics as soon as possible. Panculture if new onset fever HEMATOLOGY & COAGULATION: Monitor H&H. Keep Hgb > 7 Transfuse 1 unit of PRBC for Hgb < 7 Transfuse 1 pack of platelets of platelets < 20, 000 Watch for any signs and symptoms of bleeding SKIN: Pressure ulcer prevention per facility protocol Specialty mattress as needed ORTHO/REHAB Continue PT/OT PRN: MEDICATIONS Tylenol 650 mg po every 4 hrs for fever zofran 4 mg IV every 6 hrs for n/v Hydralazine 5 mg IV every 4 hrs systolic pressure > 160 bowel regiment: lactulose 20 gm PO BID PRN constipation Supportive measures: Continue GI and DVT prophylaxis Disposition: Pending improvement in clinical condition All questions answered time spent: > 35 min MAURICE RONDON MD Mar 15, 2025 10:59
[2025-03-15] MEDS ORDERED: PHARMACY COMMUNICATION MISC SCH (12:30)
[2025-03-15] MEDS ORDERED: proPOFol 10 MG/ML 20ML VIAL IV ONE (13:05)
[2025-03-15] MEDS ORDERED: GLYCOPYRROLATE 0.2 MG/ML 5 ML VIAL ONE (13:06)
--- NOTE | 2025-03-15 13:28 | CONS ---
GASTROENTEROLOGY CONSULTATION REFERRING PHYSICIAN: Abel Arellano MD REASON FOR CONSULTATION: Generalized abdominal pain and decompensated hepatic cirrhosis with ascites/anasarca/acute anemia. HISTORY OF PRESENT ILLNESS: The patient is an 79-year-old female with history of diabetes mellitus, hypertension, hyperlipidemia, hypothyroidism, fibromyalgia, hearing loss, depression and prior C. diff colitis and also history of hepatic cirrhosis, who was now admitted with generalized abdominal pain, abnormal abdominal imaging with CT scan showing cirrhosis and ascites. The patient also has increasing abdominal girth and leg edema/anasarca plus diarrhea, for which GI evaluation and management are sought. According to the patient, she has been having sharp, generalized abdominal pain, which started earlier on 03/14/2025. The pain radiates all over her abdomen and gets worse with p.o. food intake, but has been unchanged with bowel movements. The pain usually lasts 10 minutes and has been on and off as noted above. The patient reports she has been having diarrhea also for about 13 days. She admits to antibiotic therapy for E. coli urinary tract infection. The patient admits to increasing abdominal girth and leg edema over the last 1-2 weeks. She denies nausea, vomiting, melena, hematochezia, constipation. She denies fevers and chills also. She has no significant weight loss, but admits to weight gain. ALLERGIES: LEVAQUIN AND SULFA. PAST MEDICAL AND PAST SURGICAL HISTORY: See above. Also history of hypertension, diabetes mellitus, hyperlipidemia, fibromyalgia, hypothyroidism, prior fatty liver, hearing loss, depression, C. diff colitis, and H. pylori infection. She denies history of CAD, NC, CVA, seizure disorder, PUD or asthma. She has undergone OKSANA-BSO, back surgery, right heel spur surgery, and appendectomy. SOCIAL HISTORY: No alcohol use, tobacco use, or illicit drug use. FAMILY HISTORY: Significant for CAB, NC, CVA, diabetes mellitus, and mother had colon cancer. There is no family history of hypertension, bleeding disorders, IBD, gastric or esophageal cancers. She denies family history of liver disease too. REVIEW OF SYSTEMS: CONSTITUTIONAL: The patient reports generalized abdominal pain, increasing abdominal girth, leg swelling and diarrhea, but no fevers or chills. No gross GI bleed. OPHTHALMOLOGY: No recent vision change, eye pain, periorbital swelling, redness, or drainage. DERMATOLOGY: Denies any rash, bruising, excessive dry skin. ENT: No ear pain or tinnitus without hearing loss, but no nasal congestion, rhinorrhea, sore throat or voice change. Denies dysphagia. RESPIRATORY: No wheeze, rhinorrhea, epistaxis, chest congestion, or cough. CARDIOVASCULAR: No chest pain, palpitation, or leg swelling. GENITOURINARY: She has UTI as noted above. Denies any dysuria or hematuria. GASTROINTESTINAL: She has been having generalized abdominal pain and diarrhea, but no nausea, vomiting, gross GI bleed. MUSCULOSKELETAL: She reports joint pains on and off and lower extremity edema as noted above. NEUROLOGY: No tingling, numbness or vision changes. Does have hearing loss. PSYCHIATRY: Admits to history of depression, but no suicidal plan or ideation. HEMATOLOGY/LYMPHATICS: The patient denies any inherited bleeding disorder, easy bruising, swollen, tender or palpable lymph nodes. PHYSICAL EXAMINATION: GENERAL: The patient is an 79-year-old female who appears stated age, seen resting in bed, in no acute respiratory distress. VITAL SIGNS: Blood pressure 142/64, heart rate 79, respirations 18, temperature 98.4 degrees Fahrenheit. SKIN: Warm and dry with noted edema lower extremity, 3+ edema bilaterally. HEENT: The patient's head is normocephalic, atraumatic, pupils reactive. Sclerae anicteric. Oral mucosa is moist. No obvious lesion. No blood noted. Nasal mucosa showed no epistaxis, septal deviation or perforation. NECK: No masses or jugular venous distention. No lymphadenopathy or thyromegaly. LUNGS: Clear to auscultation bilaterally. HEART: S1, S2. No obvious murmurs, rubs, gallops auscultated. ABDOMEN: Symmetric, mildly protuberant soft with ascites. Tenderness noted in the 4 abdominal quadrants and epigastrium with guarding, epigastrium. No rebound tenderness. EXTREMITIES: No cyanosis or clubbing, but 2+ pitting edema noted in bilateral lower extremities. RECTAL: Deferred. NEUROLOGICAL: The patient is awake and alert. Light touch, pin and temperature grossly intact bilaterally. Strength within normal limits. LABORATORY DATA: WBC 8.4, hemoglobin 10.3, hematocrit 30.9, MCV of 96.3, platelet count of 90. PT 10.9, INR 1.03, PTT of 23.5. Serum chemistries done revealed sodium of 142, potassium 4.2, chloride of 109, CO2 of 27, BUN of 25, creatinine 0.8, GFR 74, random glucose 218, total calcium 8.6, phosphorus of 3.1, magnesium level 2.2, triglycerides 125, cholesterol of 181, LDL cholesterol of 73, HDL cholesterol 85, TSH 1.32. UA done on 03/13/2025 showed yellow cloudy urine, pH of 6, specific gravity 1.017, protein 200, glucose 70, ketone negative, small occult blood nitrate negative, bilirubin negative, urobilinogen 0.2, leukocyte esterase negative, rbc 6-10, wbc 6-10, few squamous epithelial cell, few urine bacteria noted. DIAGNOSTIC DATA: Ultrasound of the abdomen done on 03/13 showed cholecystectomy. No ductal dilation. Right kidney not visualized and cannot be fully evaluated. No hydronephrosis is seen on the left. Common duct measured 2.7 mm. Liver is echogenic, consistent with liver parenchymal disease and measured [address] scan of abdomen and pelvis done on 03/13/2025 showed cirrhotic liver with volume loss plane, moderate ascites, abdominal and esophageal varices noted. IMPRESSION: * Generalized abdominal pain in the setting of ascites makes SBP a possibility. She does have urinary tract infection, has been on antibiotic for this, as a possible source also, but cannot exclude any ileus. * Diarrhea possible from C. diff versus other. * Decompensated hepatic cirrhosis with ascites/anasarca and the patient at risk for esophageal varices. * Anemia, most likely from portal hypertensive gastropathy and peptic ulcer disease versus upper gastrointestinal angiodysplastic lesion or Dieulafoy's lesion are also possibilities, but cannot exclude any colon AVMs, colon polyps, colon ulcers or colon CA. * Diabetes mellitus. * Hypothyroidism. * Hyperlipidemia. * Hypertension. PLAN: * Obtain an abdominal x-ray, 2-view - flat and upright views. * Daily weights. * Recommend EGD for further evaluation and management. * The patient may benefit from a colonoscopy also. * Follow up on any cultures and other labs pending. * Follow up with a.m. labs also. Dr. Baron, thank you for allowing me to participate in the care of this patient. TID: [id number] RECEIPT: [id number] cc: Abel Arellano MD
[2025-03-15] MEDS: MEROPENEM 1GM 1 GM VIAL IVPB SCH ×2 (14:42→15:54)
[2025-03-15] MEDS: daptoMYCin 500MG/vial 500 MG in 0.9%NACL 50ML 50 ML IV SCH (14:55)
[2025-03-15] MEDS: LACTULOSE 20 GM/30 ML UDCUP PO ONE (14:57)
[2025-03-15] MEDS: furoSEMIDE 40MG VIAL IV ONE (15:52)
[2025-03-15] MEDS: SPIRONOLACTONE 25 MG TAB PO SCH ×2 (15:52→20:04)
[2025-03-15] MEDS ORDERED: furoSEMIDE 20 MG TABLET PO SCH (17:00)
[2025-03-15] MEDS: PANTOPrazole 40 MG/VIAL IVP SCH (20:03)
[2025-03-15] MEDS: BisaCODYL 5 MG TABLET.DR PO ONE (20:04)
[2025-03-15] MEDS: PEG 3350/NA SULF,BICARB,CL/KCL 4000 ML SOLN PO ONE ×2 (20:17→20:18)
[2025-03-16] VITALS (37 sets, daily range): BP systolic 131–190; BP diastolic 56–105; PULSE 59–90; RESP 14–20; TEMP 97.3–98.5; O2SAT 98
--- NOTE | 2025-03-16 04:02 | PN ---
INFECTIOUS DISEASE FOLLOWUP NOTE DATE OF SERVICE: 03/15/2025 SUBJECTIVE: The patient is seen and examined at bedside. The patient has no fever and no chills. No nausea. No vomiting. The patient underwent EGD today and it shows . No binding was done. The patient also underwent paracentesis yesterday about 2.3 L removed. The patient remained in the ICU, remained on Protonix and octreotide. PHYSICAL EXAMINATION: VITAL SIGNS: Temperature 98.6. EYES: No icterus. Pupils equal and reactive. HENT: No oral thrush seen. Moist oral mucosa. NECK: Supple. No JVD. No thyromegaly. LUNGS: Good air entry. No rales. No rhonchi. CARDIOVASCULAR: S1 and S2, regular. No murmur heard. ABDOMEN: Full, soft, nontender. Bowel sounds are present. CENTRAL NERVOUS SYSTEM: The patient is awake, alert, and oriented x 3. No focal deficits. SKIN: No rashes. No itchiness. LYMPHATIC: No peripheral lymphadenopathy. BACK: No deformity, no pressure ulcer. HEMATOLOGIC: No bleeding or petechial lesion seen. MUSCULOSKELETAL: No joint swelling, erythema, or tenderness. ASSESSMENT: An 79-year-old female admitted with fever and chills. CURRENT PROBLEMS: Include * UTI. * Polymicrobial infection. * . * Esophageal varices. * GI bleed. * Anemia. * Ascites status post paracentesis. PLAN: * Discontinue Zosyn. * Continue . * Start the patient on meropenem. * Start the patient on daptomycin. * Continue pain management. * Continue DVT prophylaxis. * Continue nutritional support. * Continue octreotide drip. * Continue Protonix drip. TID: [id number] RECEIPT: [id number]
[2025-03-16 04:27] LABS: BASOPHILS # (AUTO) 0.03 K/uL (0.00-0.20); BASOPHILS % (AUTO) 0.3 % (0.0-5.0); EOSINOPHILS # (AUTO) 0.16 K/uL (0.00-0.70); EOSINOPHILS % (AUTO) 1.8 % (0.0-8.0); IMMATURE GRANULOCYTE ABSOLUTE 0.04 K/uL (0-1); LYMPHOCYTES # (AUTO) 1.5 K/uL (1.0-4.8); LYMPHOCYTES % (AUTO) 16.6 % (21.0-51.0); MEAN CORPUSCULAR HEMOGLOBIN 31.3 pg (27.0-33.0); MEAN CORPUSCULAR HGB CONC 31.3 g/dL (32.0-36.0); MONOCYTES # (AUTO) 1.1 K/uL (0.1-1.0); MONOCYTES % (AUTO) 12.5 % (3.0-13.0); NEUTROPHILS # (AUTO) 6.1 K/uL (1.8-7.7); NEUTROPHILS % (AUTO) 68.3 % (40.0-77.0); PLATELET COUNT (AUTO) 83 K/uL (130-400); WHITE BLOOD COUNT (AUTO) 8.9 K/uL (4.8-10.8)
--- NOTE | 2025-03-16 04:33 | NUR ---
TRANSFER Gave report to nurse Romero in Med Surg at 03:45. Transferred patient at 03:58 from 207 (ICU) to 310 (Med-Surg) with IV Pumps, Tele-Pack monitor, and O2 supplementation. Patient tolerated transfer. No issues or complications.
[2025-03-16 04:36] LABS: ALBUMIN 2.2 g/dL (3.5-5.0); BILIRUBIN,TOTAL 0.7 mg/dL (0.2-1.0); TOTAL PROTEIN, SERUM 6.2 g/dL (6.0-8.3)
--- NOTE | 2025-03-16 07:54 | HMCIMG ---
US RENAL ARTERY DOPPLER HISTORY: Renal arterial stenosis COMPARISON: None TECHNIQUE: Renal and renal arterial Doppler ultrasound study was performed. FINDINGS: The right kidney measures 10.1 x 6.1 x 5.7 cm. The left kidney measures 10 x 4.8 x 4.4 cm. No evidence of hydronephrosis is seen of either kidney Left renal artery is not well visualized limiting evaluation. Only the distal portion of the right renal artery is seen with peak systolic velocity of 101 cm/s. Peak systolic velocity of abdominal aorta is 136 cm/s. Right renal artery aortic ratio is 1.0. Normal renal arterial waveforms are noted of the right renal artery. There is mild abnormal Tardus-Parvus waveforms noted of the left upper pole renal artery. The study is limited due to ascites and overlying bowel gas. IMPRESSION: 1. No hydronephrosis is seen. Ascites. There is mild abnormal Tardus-Parvus waveforms noted of the left upper pole renal artery.
[2025-03-16] MEDS: furoSEMIDE 40 MG TABLET PO SCH (09:37)
--- NOTE | 2025-03-16 09:40 | PN ---
[facility] PROGRESS NOTE Date Patient Seen: Mar 16, 2025 Time of Visit: 09:40 Supervising Physician: Dr. Lazaro Rueda Primary Care Physician: [Jaison Gibson MD ] Outpatient Specialists: [ ] Inpatient Consults: [DR Watkins, DR Cardozo, ] Attending physician: Jefry PROBLEM LIST: Sepsis, POA Hypertensive Urgency POA Requiring cardene gtt Moderate aortic valve stenosis on 2D echo 03/14/25 with LVEF > 65% Acute complicated cystitis secondary to Enterococcus faecium and E coli ESBL Liver cirrhosis, POA MELD Score of 7 (<2% risk of three months mortality) Moderate ascites, POA S/P ultrasound-guided paracentesis 03/14/2025 with removal of 3.5 L of yellowish fluid (SBP ruled out) Abdominal Esophageal varices POA Acute GI bleed, POA Iron deficiency anemia, POA Moderate malnutrition, POA Uncontrolled diabetes mellitus type 2 Mild small bowel dilation on KUB 03/14/25 Obesity BMI of 37.6 INTERVAL HISTORY: Patient evaluated at bedside, she is AAO x3, currently on 2 L nasal cannula. Patient appears comfortable, she denies any acute distress or episodes of nausea or vomiting. She is on 2 L nasal cannula at this time, white count 8.9. She continues on daptomycin and meropenem, octreotide drip and place. Blood pressures are improved today, Patient's white count is 8.9. Current treatment plan was discussed with the patient and she is rest understanding and agreement. No changes to medical management at this time, REVIEW OF SYSTEMS: 12 point ROS reviewed with patient. Pertinent positives mentioned above. Otherwise negative. PHYSICAL EXAM: GENERAL: alert, weak, awake oriented x 3 HEENT: EOMI, Sclera non icteric, moist mucosa NECK: Supple, no JVD, trachea midline LUNGS: Diminished breath sounds bilaterally. No wheezes HEART: Regular rate and rhythm. Normal S1 and S2, without murmurs ABD: Abdomen soft, nontender. Bowel sounds present EXT: No clubbing cyanosis, swelling to BLE , anasarca NEURO: Alert and oriented to person, follows commands Vital Signs (last 8hr) Date Time Temp Pulse Resp B/P (MAP) Pulse Ox O2 Delivery O2 Flow Rate FiO2 03/16/25 08:21 98.4 84 18 171/96 95 Nasal Cannula 2.0 03/16/25 03:00 63 15 149/69 97 Nasal Cannula 2.0 28 03/16/25 02:00 72 14 147/73 97 Nasal Cannula 2.0 28 LABS: Hematology Labs: Test 03/16/25 04:11 Range/Units White Blood Count 8.9 4.8-10.8 K/uL Red Blood Count 3.10 L 4.00-5.50 MIL/uL Hemoglobin 9.7 L 12.0-16.0 g/dL Hematocrit 31.0 L 36-48 % Mean Corpuscular Volume 100.0 H 79-99 fL Mean Corpuscular Hemoglobin 31.3 27.0-33.0 pg Mean Corpuscular Hemoglobin Concent 31.3 L 32.0-36.0 g/dL Red Cell Distribution Width 14.0 11.0-15.5 % Platelet Count 83 L 130-400 K/uL Mean Platelet Volume 10.5 7.5-10.5 fL Immature Granulocyte % (Auto) 0.5 0-1 % Neutrophils (%) (Auto) 68.3 40.0-77.0 % Lymphocytes (%) (Auto) 16.6 L 21.0-51.0 % Monocytes (%) (Auto) 12.5 3.0-13.0 % Eosinophils (%) (Auto) 1.8 0.0-8.0 % Basophils (%) (Auto) 0.3 0.0-5.0 % Neutrophils # (Auto) 6.1 1.8-7.7 K/uL Lymphocytes # (Auto) 1.5 1.0-4.8 K/uL Monocytes # (Auto) 1.1 H 0.1-1.0 K/uL Eosinophils # (Auto) 0.16 0.00-0.70 K/uL Basophils # (Auto) 0.03 0.00-0.20 K/uL Absolute Immature Granulocyte (auto 0.04 0-1 K/uL Nucleated Red Blood Cells 0.0 0.0-0.19 % Chemistry Labs: Test 03/16/25 05:36 03/16/25 04:11 03/15/25 04:36 Range/Units Whole Blood Glucose 132 H 70-110 MG/DL Sodium Level 143 136-145 mmol/L Potassium Level 4.0 3.5-5.1 mmol/L Chloride Level 109 101-111 mmol/L Carbon Dioxide Level 29 21-32 mmol/L Blood Urea Nitrogen 21 H 7-18 mg/dL Creatinine 1.0 0.5-1.0 mg/dL Glomerular Filtration Rate Calc 57 >90 mL/min Random Glucose 136 H 70-105 mg/dL Lactic Acid Level 1.2 0.8-2.5 mmol/L Total Calcium 8.3 L 8.5-10.1 mg/dL Total Bilirubin 0.7 # 0.2-1.0 mg/dL Aspartate Amino Transf (AST/SGOT) 53 H 10-37 U/L Alanine Aminotransferase (ALT/SGPT) 50 12-78 U/L Alkaline Phosphatase 153 H 50-136 U/L Ammonia 18 11-32 umol/L Total Protein 6.2 6.0-8.3 g/dL Albumin 2.2 L 3.5-5.0 g/dL Magnesium Level 2.00 1.80-2.40 mg/dL Triglycerides Level 122 30-200 mg/dL Cholesterol Level 186 <200 mg/dL LDL Cholesterol 80 0-99 mg/dL HDL Cholesterol 86 H 35-85 mg/dL DIAGNOSTICS / RADIOLOGY RESULTS: [ ] PLAN NEURO: Minimize central acting medications as possible. Maintain fall precautions, adequate lighting during the day PULMONARY: Supplemental 02 as needed. Maintain aspiration precautions at all times CARDIOVASCULAR: Follow hemodynamics. Vital signs per facility protocol GI & NUTRITION: Continue with nutritional support. Continue stool softeners and laxatives as needed. KIDNEYS & ELECTROLYTES: Strict monitoring of intake, output and overall fluid balance. Avoid nephrotoxic medications to the extent possible. Medications to be dosed according to renal function. Monitor electrolytes and replace as needed ENDOCRINE: Maintain blood glucose between 100-180 at all times. Hypoglycemia protocol in place INFECTIOUS DISEASE: Trend temperature, WBC and procalcitonin level Follow cultures, deescalate antibiotics as soon as possible. Panculture if new onset fever ONCOLOGY/HEMATOLOGY/COAGULATION: Monitor for s/s of bleeding Monitor hemoglobin, coagulation studies as needed SKIN: Pressure ulcer prevention per facility protocol Specialty mattress ORTHO/REHAB: Continue PT/OT Prophylaxis: Continue GI and DVT prophylaxis Code Status: Full Resuscitation Disposition: TBD Other: Total patient care time exceeds 35 minutes excluding all procedures. EDEN VARGHESE Mar 16, 2025 09:40
--- NOTE | 2025-03-16 10:14 | PN ---
[facility] PROGRESS NOTE Date of Service: Mar 16, 2025 Time of Service: 10:08 SUBJECTIVE: Ms. Arias is an 79-year-old female that was seen and examined on 03/13/2025. Patient is a good historian of personal health Patient stated she came to the emergency department with a chief complaint of abdominal pain. Location is to bilateral upper quadrants. Duration is constant. Character is described as sharp. There was no alleviating factors. Symptoms are aggravated with movement. She denied any associated nausea or vomiting. CT abdomen and pelvis shows cirrhotic liver with volume loss plane, moderate ascites, abdominal and esophageal varices. Ultrasound abdomen showing cholecystectomy, not ductal dilatation, right kidney not visualized and can not be fully evaluated, no hydronephrosis seen left kidney. Patient admitted for further evaluation and medical management 03/14 patient admitted to the medical floor, BP 182/87, heart rate of 105, afebrile, saturating normal on room air, hemoglobin stable at 9.7, hematocrit 30.0, WBC 7.6, platelet count of 88, sodium 142, potassium 4.2, BUN of 25, creatinine 0.8, total calcium 8.6, phosphorus 3.1, magnesium 2.2, iron level 34, liver enzymes with a total bilirubin 0.7, AST of 43, ALT of 57, albumin 2.4 Patient remains admitted to the medical floor GI consultation requested, we will follow input and recommendation, patient scheduled for EGD today. We will start the patient on Protonix and octreotide drip CBC q.8 hours, transfuse 1 unit of PRBC if hemoglobin less than eight Start the patient on Venofer 200 mg IV daily for three days IR consultation requested for ultrasound-guided paracentesis, both diagnostic and therapeutic, fluid will be sent for analysis including cytology We will request dietitian consultation Start empiric antibiotics with Rocephin 1 g IV daily, follow results of urine culture and adjust antibiotics accordingly Add metoprolol 25 mg p.o. b.i.d. to current BP management, as well as hydralazine 5 mg IV every 6 hours as needed for SBP greater than 160 Chest x-ray and echocardiogram to evaluate ejection fraction Patient with a hemoglobin A1c of 8.1 continue insulin sliding scale, add Lantus 10 units subcutaneously at bedtime, continue to adjust as needed Home medications reviewed and reconciled 03/15 patient was upgraded to the ICU for Cardene drip, as the patient had yesterday a blood pressure greater than 200 systolic, patient had EGD done in the morning so blood pressure medication by mouth were on hold. Today BP 158/57, afebrile, saturating 98% on room air. Patient on amlodipine 5 mg p.o. daily, metoprolol tartrate 50 mg p.o. b.i.d., furosemide 20 mg p.o. daily. CBC with a hemoglobin 10.6, hematocrit 33.7, WBC 7.8, with a platelet count of 89. Sodium 141, potassium 4.7, BUN of 20, creatinine 0.9, magnesium 2.0. Results of urine culture positive for Enterococcus faecium and E coli, ESBL, patient underwent successful ultrasound paracentesis 03/14/2025, with removal of 3.5 L of yellow fluid. Less than 2 cc of blood noted, patient tolerated the procedure well without complications, follow results of ascitic fluid culture, Patient currently on Zosyn IV. Infectious disease input noted and appreciated. Critical care consultation requested, follow input and recommendation. Echocardiogram done, reported as follows: Conclusion The LVEF is > 65%. 3D volume EF 68%. Mild concentric left ventricular hypertrophy. The left ventricle is normal size. indeterminate diastolic function Normal wall motion There is moderate aortic valvular stenosis. AoV pk gradient 43mmHg, mean gradient 24mmHg. AoV area 1.5cm. There is no pericardial effusion. Study quality was adequate During my visit the patient remains comfortably in bed, alert, following commands, she remains on Cardene drip, case discussed with the RN, no acute events overnight, home blood pressure medications already given. The patient is currently NPO, scheduled for EGD today. She remains on Protonix and octreotide drip. 03/16 patient downgraded from the ICU to the medical floor yesterday. Blood pressure 71/96, afebrile, saturating normal on room air, hemoglobin 9.7, hematocrit 31.0, white blood cell count 8.9, platelet count of 83, sodium 143, potassium 4.0, BUN of 21, creatinine 1.0, report of body fluid culture preliminary no growth at 24-35 hours, studies to continue. Plan for colonoscopy today. Patient evaluated by Infectious Disease, Zosyn IV discontinued, patient is started on meropenem and daptomycin IV. Input noted and appreciated. Patient's blood pressure remains moderately elevated, currently on furosemide 40 mg p.o. daily, Aldactone 50 mg p.o. daily, amlodipine 5 mg p.o. daily, metoprolol tartrate 50 mg p.o. b.i.d.. Patient also on losartan 50 mg p.o. b.i.d.. I will add hydralazine 25 mg p.o. q.8 hours. Case discussed with the RN, no acute events overnight, patient is scheduled for colonoscopy today. EGD done 03/15/2025, tolerated the procedure well, impression as follows: -acute gastritis -congestive gastropathy -congested duodenal mucosa -esophageal ulcer with no bleeding and no stigmata of recent bleeding -esophagogastric landmarks identified. -small (less than 5 mm) esophageal varices. -no specimens collected. Recommendations: -clear liquid diet -follow an anti-reflux regimen daily, use Protonix 40 mg p.o. b.i.d. for eight weeks -plan for colonoscopy REVIEW OF SYSTEMS CONSTITUTIONAL: Denies fevers, chills, or night sweats. No unintentional weight loss reported. NEUROLOGICAL: Denies headache, amaurosis fugax, motor weakness, sensory deficit, vertigo/spinning sensation, gait abnormalities, or tremors. ENT: No hearing loss, otalgia, otorrhea, rhinitis, rhinorrhea, hoarseness, or sore throat. CARDIOVASCULAR: Denies any exertional angina, dyspnea on exertion, orthopnea, paroxysmal nocturnal dyspnea, palpitations, life-threatening arrhythmias, claudication. PULMONARY: Denies any shortness of breath, cough, phlegm/sputum, hemoptysis, pleuritic chest pain. SLEEP: Denies morning headaches, daytime somnolence or napping. Denies difficulty falling asleep, staying asleep, waking from sleep. Denies knowledge of snoring. GASTROINTESTINAL: Denies any type of dysphagia to either liquids or solids. Denies nausea, vomiting, pyrosis, early satiety, abdominal pain, diarrhea, constipation, or changes in stool consistency or caliber. Denies coffee-ground emesis, hematemesis, hematochezia, or melanotic stools. GENITOURINARY: Denies frequency, urgency, nocturia, hematuria or incontinence (Storage/Irritative symptoms.) Low urinary stream, straining to void, urinary intermittency or hesitancy, splitting of the voiding stream, terminal dribbling. ENDOCRINOLOGIC: Denies polyuria, polydipsia, polyphagia or heat/cold intolerances. HEMATOLOGIC: Denies thrombophilia/previous clots, or coagulopathy/bleeding disorders. ONCOLOGIC: Denies personal history of malignancy. DERMATOLOGIC: Denies rashes or pruritus. PSYCHIATRIC: Denies any suicidal or homicidal ideation. Denies hallucinations. PHYSICAL EXAM GENERAL APPEARANCE: The patient is awake, alert, and oriented, in no acute cardiopulmonary distress. NEUROLOGICAL: Cranial nerves II-XII grossly intact. Motor is 5/5 in bilateral upper and lower extremities proximal to distal. No sensory deficits. HEENT: Face is symmetric. Pupils are equal and reactive. Extraocular movements are intact. NECK: Supple. No JVD. No thyromegaly. No submental, submandibular, pre- /postauricular, occipital or supraclavicular lymphadenopathy. CHEST: Normal chest expansion. No Telemetry. LUNGS: Absence of any rales, rhonchi or any wheezing. CARDIOVASCULAR: Regular. S1 and S2 normal. No appreciable rubs, murmurs or gallops. ABDOMEN: Soft, nontender, and nondistended. There is no rebound, voluntary guarding, or rigidity. : Deferred. No Jasso. EXTREMITIES: Non-edematous and not cyanotic. No clubbing. Good capillary refill. SKIN: No skin breakdown. Vital Signs (last 8hr) Date Time Temp Pulse Resp B/P (MAP) Pulse Ox O2 Delivery O2 Flow Rate FiO2 03/16/25 08:21 98.4 84 18 171/96 95 Nasal Cannula 2.0 03/16/25 03:00 63 15 149/69 97 Nasal Cannula 2.0 28 LABS: Laboratory: Test 03/16/25 05:36 03/16/25 04:11 03/15/25 04:36 03/14/25 13:30 Range/Units Whole Blood Glucose 132 H 70-110 MG/DL White Blood Count 8.9 4.8-10.8 K/uL Red Blood Count 3.10 L 4.00-5.50 MIL/uL Hemoglobin 9.7 L 12.0-16.0 g/dL Hematocrit 31.0 L 36-48 % Mean Corpuscular Volume 100.0 H 79-99 fL Mean Corpuscular Hemoglobin 31.3 27.0-33.0 pg Mean Corpuscular Hemoglobin Concent 31.3 L 32.0-36.0 g/dL Red Cell Distribution Width 14.0 11.0-15.5 % Platelet Count 83 L 130-400 K/uL Mean Platelet Volume 10.5 7.5-10.5 fL Immature Granulocyte % (Auto) 0.5 0-1 % Neutrophils (%) (Auto) 68.3 40.0-77.0 % Lymphocytes (%) (Auto) 16.6 L 21.0-51.0 % Monocytes (%) (Auto) 12.5 3.0-13.0 % Eosinophils (%) (Auto) 1.8 0.0-8.0 % Basophils (%) (Auto) 0.3 0.0-5.0 % Neutrophils # (Auto) 6.1 1.8-7.7 K/uL Lymphocytes # (Auto) 1.5 1.0-4.8 K/uL Monocytes # (Auto) 1.1 H 0.1-1.0 K/uL Eosinophils # (Auto) 0.16 0.00-0.70 K/uL Basophils # (Auto) 0.03 0.00-0.20 K/uL Absolute Immature Granulocyte (auto 0.04 0-1 K/uL Nucleated Red Blood Cells 0.0 0.0-0.19 % Sodium Level 143 136-145 mmol/L Potassium Level 4.0 3.5-5.1 mmol/L Chloride Level 109 101-111 mmol/L Carbon Dioxide Level 29 21-32 mmol/L Blood Urea Nitrogen 21 H 7-18 mg/dL Creatinine 1.0 0.5-1.0 mg/dL Glomerular Filtration Rate Calc 57 >90 mL/min Random Glucose 136 H 70-105 mg/dL Lactic Acid Level 1.2 0.8-2.5 mmol/L Total Calcium 8.3 L 8.5-10.1 mg/dL Total Bilirubin 0.7 # 0.2-1.0 mg/dL Aspartate Amino Transf (AST/SGOT) 53 H 10-37 U/L Alanine Aminotransferase (ALT/SGPT) 50 12-78 U/L Alkaline Phosphatase 153 H 50-136 U/L Ammonia 18 11-32 umol/L Total Protein 6.2 6.0-8.3 g/dL Albumin 2.2 L 3.5-5.0 g/dL Magnesium Level 2.00 1.80-2.40 mg/dL Triglycerides Level 122 30-200 mg/dL Cholesterol Level 186 <200 mg/dL LDL Cholesterol 80 0-99 mg/dL HDL Cholesterol 86 H 35-85 mg/dL Body Fluid Source ASCITES Body Fluid Volume 3500 mL Body Fluid Color LT YELLOW LT YELLOW Body Fluid Supernatant Appearance CLOUDY H CLEAR Body Fluid WBC 125 /cu. mm. Body Fluid RBC 135 /cu. mm. Body Fluid Neutrophils 25.0 % Body Fluid Lymphocytes 17 % Body Fluid Monocytes % 1 % Body Fluid Macrophages (%) 56 Body Fluid Other Cells (%) 1 Body Fluid Glucose 226 H 1-40 mg/dL Body Fluid Total Protein 0.7 g/dL Body Fluid Albumin 0.1 g/dL Body Fluid Lactate Dehydrogenase 34 U/L Body Fluid Amylase 6 U/L Current Medications Medications (Trade) Dose Ordered Sig/Isauro Route PRN Reason Start Time Stop Time Status Last Admin Dose Admin Acetaminophen (TYLenol 325MG TAB) 650 mg Q6H PRN PO TEMPERATURE GREATER THAN 101.5 03/13/25 04:30 04/12/25 04:29 Acetaminophen/ Hydrocodone Bitart (NORco 5/325MG) 1 tab Q4H PRN PO MODERATE PAIN (4-6) 03/14/25 11:30 03/19/25 11:29 Amlodipine Besylate (NorvASC 5MG TAB) 5 mg DAILY PO 03/15/25 09:00 04/14/25 08:59 03/16/25 09:36 5 MG Atorvastatin Calcium (LIPItor 20MG) 20 mg HS PO 03/14/25 21:00 04/13/25 20:59 03/15/25 20:04 20 MG Atorvastatin Calcium (LIPItor 40MG) 40 mg HS PO 03/13/25 21:00 03/14/25 11:42 DC 03/13/25 21:39 40 MG Ceftriaxone Sodium (ROCEphine 1G INJ) 1 gm Q24H IVPB 03/14/25 10:00 03/14/25 13:15 DC 03/14/25 11:19 1 GM Citalopram Hydrobromide (CeleXA 20MG TAB) 20 mg HS PO 03/14/25 21:00 04/13/25 20:59 03/15/25 20:03 20 MG Daptomycin 500 mg/ Sodium Chloride 50 ml @ 100 mls/hr Q24H IV 03/15/25 15:00 03/25/25 14:59 03/15/25 14:55 100 MLS/HR Famotidine (Pepcid 20mg Tab) 20 mg DAILY PO 03/13/25 09:00 03/14/25 10:02 DC 03/13/25 09:04 20 MG Furosemide (LASix 20MG TAB) 20 mg BID@17 PO 03/15/25 17:00 03/15/25 15:28 DC Furosemide (LASix 20MG TAB) 20 mg DAILY PO 03/15/25 09:00 03/15/25 14:31 DC Furosemide (LASix 40MG TAB) 40 mg DAILY PO 03/16/25 09:00 04/15/25 08:59 03/16/25 09:37 40 MG Hydralazine HCl (APRESOLine 20MG INJ) 5 mg Q6H PRN IV ADMINISTER FOR SBP > 160 03/14/25 10:00 03/15/25 08:35 DC 03/14/25 18:23 5 MG Hydralazine HCl (APRESOLine 20MG INJ) 10 mg Q6H PRN IV For:SBP above 160;DBP above 90 03/13/25 04:30 03/14/25 09:58 DC 03/14/25 03:46 10 MG Hydralazine HCl (FVREFRIhss31MA TAB) 25 mg TID PO 03/13/25 12:30 04/12/25 12:29 03/16/25 09:35 25 MG Insulin Glargine (LANtus 100 UNITS/ML 10 ML VIAL) 10 units HS SQ 03/14/25 21:00 04/13/25 20:59 03/15/25 20:09 10 UNITS Insulin Human Regular (humuLIN R 100 UNIT/ML 3ML) INSULIN SLIDING SCAL... ACHS SQ 03/13/25 07:30 04/12/25 07:29 03/15/25 20:09 3 UNIT Iron Sucrose (VenoFER) 100 mg DAILY IV 03/14/25 09:00 03/14/25 09:58 DC 03/14/25 09:21 100 MG Iron Sucrose (VenoFER) 200 mg DAILY IV 03/15/25 09:00 03/16/25 09:01 DC 03/15/25 08:28 200 MG Lactulose (Constulose 20gm/ 30ml Udcup) 20 gm BID PRN PO CONSTIPATION 03/13/25 03:30 04/12/25 03:29 Levothyroxine Sodium (SYNTHroid 100MCG TAB) 200 mcg SYN PO 03/15/25 06:30 04/14/25 06:29 Losartan Potassium (CozAAR 25MG TAB) 25 mg BID PO 03/13/25 21:00 03/13/25 12:08 DC Losartan Potassium (CozAAR 50 mg TAB) 50 mg BID PO 03/13/25 21:00 04/12/25 20:59 03/16/25 09:34 50 MG Meropenem (Merrem 1gm) 1 gm Q12H IVPB 03/15/25 14:00 03/15/25 14:57 DC Meropenem (Merrem 1gm) 1 gm Q12H IVPB 03/15/25 16:00 03/25/25 15:59 03/16/25 03:14 1 GM Metoprolol Tartrate (loprESSOR) 25 mg BID PO 03/14/25 10:00 03/15/25 08:28 DC 03/14/25 20:03 25 MG Metoprolol Tartrate (loprESSOR) 50 mg BID PO 03/15/25 09:00 04/14/25 08:59 03/16/25 09:37 50 MG Mirtazapine (REMeron 15 MG TAB) 15 mg HS PO 03/14/25 21:00 04/13/25 20:59 03/15/25 20:04 15 MG Miscellaneous Medication (Lactulose (Constulose)) 20 ml BID PRN PO constipation 03/14/25 11:30 03/14/25 11:40 DC Morphine Sulfate (morPHINE 2MG SYG) 2 mg Q4H PRN IVP SEVERE PAIN (7-10) 03/13/25 04:30 03/13/25 09:51 DC Morphine Sulfate (morPHINE 2MG SYG) 2 mg Q4H PRN IVP SEVERE PAIN (7-10) 03/14/25 00:30 03/21/25 00:29 03/16/25 09:30 2 MG Nicardipine HCl 25 mg/Sodium Chloride 250 ml @ 0 mls/hr PROTOCOL IV 03/14/25 18:30 03/15/25 21:20 DC 03/15/25 12:23 25 MLS/HR Octreotide Acetate 1250 mcg/ Sodium Chloride 250 ml @ 0 mls/hr PROTOCOL IV 03/14/25 10:00 04/13/25 09:59 03/14/25 21:19 5 MLS/HR Ondansetron HCl (zoFRAN 4MG INJ) 4 mg Q6H PRN IV NAUSEA/VOMITING 03/13/25 04:30 04/12/25 04:29 03/16/25 01:11 4 MG Pantoprazole Sodium (PROTonix 40MG INJ) 40 mg BID IVP 03/15/25 21:00 04/14/25 20:59 03/16/25 09:37 40 MG Pantoprazole Sodium 80 mg/ Sodium Chloride 100 ml @ 10 mls/hr Q10H IV 03/14/25 10:00 03/15/25 14:03 DC 03/15/25 10:19 10 MLS/HR Pharmacy Profile Note (Pharmacy Communication) 1 each ONCE MISC 03/15/25 12:30 03/15/25 13:09 DC Piperacillin Sod/ Tazobactam Sod (Zosyn 3.375gm+NS 50ml) 3.375 gm Q8H IV 03/14/25 13:30 03/15/25 12:22 DC 03/15/25 04:50 3.375 GM Spironolactone (Aldactone 25mg) 50 mg BID PO 03/15/25 21:00 03/16/25 07:49 DC 03/15/25 20:04 50 MG Spironolactone (Aldactone 25mg) 50 mg DAILY PO 03/15/25 15:30 04/14/25 15:29 03/16/25 09:35 50 MG DIAGNOSTICS / RADIOLOGY: [ ] ASSESSMENT: Sepsis, POA UTI secondary to Enterococcus faecium and E coli ESBL Liver cirrhosis, POA Moderate ascites, POA Status post ultrasound-guided paracentesis 03/14/2025 with removal of 3.5 L of yellowish fluid Acute GI bleed, POA Iron deficiency anemia, POA Moderate malnutrition, POA Hypertensive urgency, POA Uncontrolled diabetes mellitus type 2 PLAN: patient downgraded from the ICU to the medical floor yesterday. Blood pressure 71/96, afebrile, saturating normal on room air, hemoglobin 9.7, hematocrit 31.0, white blood cell count 8.9, platelet count of 83, sodium 143, potassium 4.0, BUN of 21, creatinine 1.0, report of body fluid culture preliminary no growth at 24- 35 hours, studies to continue. Plan for colonoscopy today. Patient evaluated by Infectious Disease, Zosyn IV discontinued, patient is started on meropenem and daptomycin IV. Input noted and appreciated. Patient's blood pressure remains moderately elevated, currently on furosemide 40 mg p.o. daily, Aldactone 50 mg p.o. daily, amlodipine 5 mg p.o. daily, metoprolol tartrate 50 mg p.o. b.i.d.. Patient also on losartan 50 mg p.o. b.i.d.. I will add hydralazine 25 mg p.o. q.8 hours EGD done 03/15/2025, tolerated the procedure well, impression as follows: -acute gastritis -congestive gastropathy -congested duodenal mucosa -esophageal ulcer with no bleeding and no stigmata of recent bleeding -esophagogastric landmarks identified. -small (less than 5 mm) esophageal varices. -no specimens collected. Recommendations: -clear liquid diet -follow an anti-reflux regimen daily, use Protonix 40 mg p.o. b.i.d. for eight weeks -plan for colonoscopy NEURO: Minimize central acting medications as possible. Fall Precautions. Well lighted room through the day and minimize interruptions through the night to prevent acute delirium. PULMONARY: Supplemental 02 as needed BiPAP as necessary, for respiratory distress Titrate Fio2 to keep Spo2 > or = 90% DuoNebs and CPT as needed IS hourly while awake for pulmonary hygiene prn Out of bed to chair as tolerated Maintain aspiration precautions at all times CARDIOVASCULAR: Follow hemodynamics. Vital signs per facility protocol GI & NUTRITION: Continue nutritional support Aspirations precautions Prokinetic agents and laxatives as needed KIDNEYS & ELECTROLYTES: Strict monitoring of intake and output Daily weights Avoid nephrotoxic agents Monitor electrolytes and replace as needed Goal urine output of 30mL/hr or 0.5mL/kg/hr Medications to be dosed according to renal function. Avoid contrast if possible ENDOCRINE: Maintain blood glucose between 100-180 at all times. Insulin sliding scale for blood glucose management Hypoglycemia and hyperglycemia protocol in place INFECTIOUS DISEASE: Trend temperature, WBC and procalcitonin level Follow cultures, deescalate antibiotics as soon as possible. Panculture if new onset fever HEMATOLOGY & COAGULATION: Monitor H&H. Keep Hgb > 7 Transfuse 1 unit of PRBC for Hgb < 7 Transfuse 1 pack of platelets of platelets < 20, 000 Watch for any signs and symptoms of bleeding SKIN: Pressure ulcer prevention per facility protocol Specialty mattress as needed ORTHO/REHAB Continue PT/OT PRN: MEDICATIONS Tylenol 650 mg po every 4 hrs for fever zofran 4 mg IV every 6 hrs for n/v Hydralazine 5 mg IV every 4 hrs systolic pressure > 160 bowel regiment: lactulose 20 gm PO BID PRN constipation Supportive measures: Continue GI and DVT prophylaxis Disposition: Pending improvement in clinical condition All questions answered time spent: > 35 min MAURICE RONDON MD Mar 16, 2025 10:14
[2025-03-16] MEDS ORDERED: LIDOCAINE PF 100MG/5ML (2%) SYRINGE 5ML ONE (13:12)
[2025-03-16] MEDS ORDERED: proPOFol 10 MG/ML 20ML VIAL IV ONE ×2 (13:12→13:29)
[2025-03-16] MEDS: hydrALAZine 20MG/ML VIAL ONE (14:00)
[2025-03-16] MEDS: IRON sUCROse COMPLEX 100 MG/5 ML VIAL IV ONE (16:49)
--- NOTE | 2025-03-16 17:29 | NUR ---
Nutrition consult per PCM eval Reviewed labs, notes, and medications. Pt's last admin 03/01/25, abdo. pain POA, s/p paracentesis 03/14/25 3.5 L output, colonoscopy 03/16/25, on CLD, insulin, remeron, sedated, zofran, lasix, steroid, elevated BUN 21, Cr WNL, BG 143 (H), Ca 8.3(L), elevated AST, A1C 8.3 per chart review. Wt via bed scale, last BM 03/16/25, well nourished, no edema, no wounds noted, adequate nutrition 691 ml balance 03/15/25 per nursing. Advance diet when medically feasible to HH + prostat jello tid w/ trays, fluid restriction per MD Recommendations: -Provide CLD + ensure clear tid w/ trays -Monitor PO intake -Encourage PO intake as able -Monitor BM -If no BM >3 days consider stool softener -Monitor electrolytes -Replenish electrolytes per protocol -Monitor wts -Reweigh as able -Order Vit D, vit b-12 labs to rule out deficiencies -Provide b-complex QD -Advance diet when medically feasible -Texture per [employer] recs -Recommend Pt to follow up with PCP -Monitor goals of care RD to follow + available for consult per protocol Addendum: 03/16/25 at [address] Amended: Links added.
[2025-03-16] MEDS: hydrALAZine 25MG TABLET PO SCH (17:31)
[2025-03-17] VITALS: BP 140/63; PULSE 69; RESP 18; TEMP 98.7
[2025-03-17 04:00] VITALS: BP 162/71; PULSE 67; RESP 18; TEMP 97.8
[2025-03-17 06:42] LABS: BASOPHILS # (AUTO) 0.03 K/uL (0.00-0.20); BASOPHILS % (AUTO) 0.4 % (0.0-5.0); EOSINOPHILS # (AUTO) 0.12 K/uL (0.00-0.70); EOSINOPHILS % (AUTO) 1.6 % (0.0-8.0); HEMATOCRIT 30.8 % (36-48); IMMATURE GRANULOCYTE ABSOLUTE 0.03 K/uL (0-1); LYMPHOCYTES # (AUTO) 1.1 K/uL (1.0-4.8); LYMPHOCYTES % (AUTO) 15.2 % (21.0-51.0); MEAN CORPUSCULAR HGB CONC 33.1 g/dL (32.0-36.0); MEAN CORPUSCULAR VOLUME 96.6 fL (79-99); MONOCYTES % (AUTO) 13.8 % (3.0-13.0); NEUTROPHILS # (AUTO) 5.1 K/uL (1.8-7.7); NEUTROPHILS % (AUTO) 68.6 % (40.0-77.0); PLATELET COUNT (AUTO) 80 K/uL (130-400); RED BLOOD CELL COUNT(AUTO) 3.19 MIL/uL (4.00-5.50); RED CELL DISTRIBUTION WIDTH 13.7 % (11.0-15.5); WHITE BLOOD COUNT (AUTO) 7.4 K/uL (4.8-10.8)
[2025-03-17 07:13] LABS: ALBUMIN 2.4 g/dL (3.5-5.0); BILIRUBIN,TOTAL 0.5 mg/dL (0.2-1.0); CREATININE 1.4 mg/dL (0.5-1.0); MAGNESIUM 1.8 mg/dL (1.80-2.40); POTASSIUM 3.7 mmol/L (3.5-5.1); TOTAL PROTEIN, SERUM 6.4 g/dL (6.0-8.3)
[2025-03-17 08:00] VITALS: O2SAT 98
[2025-03-17 08:29] VITALS: BP 168/80; PULSE 70; RESP 18; TEMP 98.6
--- NOTE | 2025-03-17 09:56 | PN ---
[facility] PROGRESS NOTE Date of Service: Mar 17, 2025 Time of Service: 09:51 SUBJECTIVE: Ms. Arias is an 79-year-old female that was seen and examined on 03/13/2025. Patient is a good historian of personal health Patient stated she came to the emergency department with a chief complaint of abdominal pain. Location is to bilateral upper quadrants. Duration is constant. Character is described as sharp. There was no alleviating factors. Symptoms are aggravated with movement. She denied any associated nausea or vomiting. CT abdomen and pelvis shows cirrhotic liver with volume loss plane, moderate ascites, abdominal and esophageal varices. Ultrasound abdomen showing cholecystectomy, not ductal dilatation, right kidney not visualized and can not be fully evaluated, no hydronephrosis seen left kidney. Patient admitted for further evaluation and medical management 03/14 patient admitted to the medical floor, BP 182/87, heart rate of 105, afebrile, saturating normal on room air, hemoglobin stable at 9.7, hematocrit 30.0, WBC 7.6, platelet count of 88, sodium 142, potassium 4.2, BUN of 25, creatinine 0.8, total calcium 8.6, phosphorus 3.1, magnesium 2.2, iron level 34, liver enzymes with a total bilirubin 0.7, AST of 43, ALT of 57, albumin 2.4 Patient remains admitted to the medical floor GI consultation requested, we will follow input and recommendation, patient scheduled for EGD today. We will start the patient on Protonix and octreotide drip CBC q.8 hours, transfuse 1 unit of PRBC if hemoglobin less than eight Start the patient on Venofer 200 mg IV daily for three days IR consultation requested for ultrasound-guided paracentesis, both diagnostic and therapeutic, fluid will be sent for analysis including cytology We will request dietitian consultation Start empiric antibiotics with Rocephin 1 g IV daily, follow results of urine culture and adjust antibiotics accordingly Add metoprolol 25 mg p.o. b.i.d. to current BP management, as well as hydralazine 5 mg IV every 6 hours as needed for SBP greater than 160 Chest x-ray and echocardiogram to evaluate ejection fraction Patient with a hemoglobin A1c of 8.1 continue insulin sliding scale, add Lantus 10 units subcutaneously at bedtime, continue to adjust as needed Home medications reviewed and reconciled 03/15 patient was upgraded to the ICU for Cardene drip, as the patient had yesterday a blood pressure greater than 200 systolic, patient had EGD done in the morning so blood pressure medication by mouth were on hold. Today BP 158/57, afebrile, saturating 98% on room air. Patient on amlodipine 5 mg p.o. daily, metoprolol tartrate 50 mg p.o. b.i.d., furosemide 20 mg p.o. daily. CBC with a hemoglobin 10.6, hematocrit 33.7, WBC 7.8, with a platelet count of 89. Sodium 141, potassium 4.7, BUN of 20, creatinine 0.9, magnesium 2.0. Results of urine culture positive for Enterococcus faecium and E coli, ESBL, patient underwent successful ultrasound paracentesis 03/14/2025, with removal of 3.5 L of yellow fluid. Less than 2 cc of blood noted, patient tolerated the procedure well without complications, follow results of ascitic fluid culture, Patient currently on Zosyn IV. Infectious disease input noted and appreciated. Critical care consultation requested, follow input and recommendation. Echocardiogram done, reported as follows: Conclusion The LVEF is > 65%. 3D volume EF 68%. Mild concentric left ventricular hypertrophy. The left ventricle is normal size. indeterminate diastolic function Normal wall motion There is moderate aortic valvular stenosis. AoV pk gradient 43mmHg, mean gradient 24mmHg. AoV area 1.5cm. There is no pericardial effusion. Study quality was adequate During my visit the patient remains comfortably in bed, alert, following commands, she remains on Cardene drip, case discussed with the RN, no acute events overnight, home blood pressure medications already given. The patient is currently NPO, scheduled for EGD today. She remains on Protonix and octreotide drip. 03/16 patient downgraded from the ICU to the medical floor yesterday. Blood pressure 71/96, afebrile, saturating normal on room air, hemoglobin 9.7, hematocrit 31.0, white blood cell count 8.9, platelet count of 83, sodium 143, potassium 4.0, BUN of 21, creatinine 1.0, report of body fluid culture preliminary no growth at 24-35 hours, studies to continue. Plan for colonoscopy today. Patient evaluated by Infectious Disease, Zosyn IV discontinued, patient is started on meropenem and daptomycin IV. Input noted and appreciated. Patient's blood pressure remains moderately elevated, currently on furosemide 40 mg p.o. daily, Aldactone 50 mg p.o. daily, amlodipine 5 mg p.o. daily, metoprolol tartrate 50 mg p.o. b.i.d.. Patient also on losartan 50 mg p.o. b.i.d.. I will add hydralazine 25 mg p.o. q.8 hours. Case discussed with the RN, no acute events overnight, patient is scheduled for colonoscopy today. EGD done 03/15/2025, tolerated the procedure well, impression as follows: -acute gastritis -congestive gastropathy -congested duodenal mucosa -esophageal ulcer with no bleeding and no stigmata of recent bleeding -esophagogastric landmarks identified. -small (less than 5 mm) esophageal varices. -no specimens collected. Recommendations: -clear liquid diet -follow an anti-reflux regimen daily, use Protonix 40 mg p.o. b.i.d. for eight weeks -plan for colonoscopy 03/17 79-year-old female, initially admitted with the abdominal pain, CT abdomen and pelvis shows cirrhotic liver and moderate ascites, status post paracentesis removal of 3.5 L yellowish fluid, patient also with occult blood posit wendie, EGD done 03/15/2025, acute gastritis, congestive gastropathy, congested duodenal mucosa, esophageal ulcer with no bleeding and no stigmata of recent bleeding, small esophageal varices. Colonoscopy done 03/16/2025, findings of internal hemorrhoids, patient remains admitted to the medical floor, blood pressure 168/80, afebrile, saturating 93% on 3 L nasal cannula, hemoglobin stable 10.2, hematocrit 30.8, platelet count of 80. Urine culture positive Enterococcus faecium and E coli ESBL. Patient to continue meropenem and daptomycin IV, continue to follow infectious disease input and recommendation. Patient remains comfortably in bed, alert oriented x3, no acute events overnight. We will like to be discharged home. REVIEW OF SYSTEMS CONSTITUTIONAL: Denies fevers, chills, or night sweats. No unintentional weight loss reported. NEUROLOGICAL: Denies headache, amaurosis fugax, motor weakness, sensory deficit, vertigo/spinning sensation, gait abnormalities, or tremors. ENT: No hearing loss, otalgia, otorrhea, rhinitis, rhinorrhea, hoarseness, or sore throat. CARDIOVASCULAR: Denies any exertional angina, dyspnea on exertion, orthopnea, paroxysmal nocturnal dyspnea, palpitations, life-threatening arrhythmias, ruben ication. PULMONARY: Denies any shortness of breath, cough, phlegm/sputum, hemoptysis, pleuritic chest pain. SLEEP: Denies morning headaches, daytime somnolence or napping. Denies difficulty falling asleep, staying asleep, waking from sleep. Denies knowledge of snoring. GASTROINTESTINAL: Denies any type of dysphagia to either liquids or solids. Denies nausea, vomiting, pyrosis, early satiety, abdominal pain, diarrhea, constipation, or changes in stool consistency or caliber. Denies coffee-ground emesis, hematemesis, hematochezia, or melanotic stools. GENITOURINARY: Denies frequency, urgency, nocturia, hematuria or incontinence (Storage/Irritative symptoms.) Low urinary stream, straining to void, urinary intermittency or hesitancy, splitting of the voiding stream, terminal dribbling. ENDOCRINOLOGIC: Denies polyuria, polydipsia, polyphagia or heat/cold intolerances. HEMATOLOGIC: Denies thrombophilia/previous clots, or coagulopathy/bleeding disorders. ONCOLOGIC: Denies personal history of malignancy. DERMATOLOGIC: Denies rashes or pruritus. PSYCHIATRIC: Denies any suicidal or homicidal ideation. Denies hallucinations. PHYSICAL EXAM GENERAL APPEARANCE: The patient is awake, alert, and oriented, in no acute cardiopulmonary distress. NEUROLOGICAL: Cranial nerves II-XII grossly intact. Motor is 5/5 in bilateral upper and lower extremities proximal to distal. No sensory deficits. HEENT: Face is symmetric. Pupils are equal and reactive. Extraocular movements are intact. NECK: Supple. No JVD. No thyromegaly. No submental, submandibular, pre- /postauricular, occipital or supraclavicular lymphadenopathy. CHEST: Normal chest expansion. No Telemetry. LUNGS: Absence of any rales, rhonchi or any wheezing. CARDIOVASCULAR: Regular. S1 and S2 normal. No appreciable rubs, murmurs or gallops. ABDOMEN: Soft, nontender, and nondistended. There is no rebound, voluntary guarding, or rigidity. : Deferred. No Jasso. EXTREMITIES: Non-edematous and not cyanotic. No clubbing. Good capillary refill. SKIN: No skin breakdown. Vital Signs (last 8hr) Date Time Temp Pulse Resp B/P (MAP) Pulse Ox O2 Delivery O2 Flow Rate FiO2 03/17/25 08:29 98.6 70 18 168/80 93 Nasal Cannula 3.0 03/17/25 04:00 97.9 67 18 162/71 93 Room Air LABS: Laboratory: Test 03/17/25 06:33 03/17/25 05:13 03/16/25 04:11 Range/Units White Blood Count 7.4 4.8-10.8 K/uL Red Blood Count 3.19 L 4.00-5.50 MIL/uL Hemoglobin 10.2 L 12.0-16.0 g/dL Hematocrit 30.8 L 36-48 % Mean Corpuscular Volume 96.6 79-99 fL Mean Corpuscular Hemoglobin 32.0 27.0-33.0 pg Mean Corpuscular Hemoglobin Concent 33.1 32.0-36.0 g/dL Red Cell Distribution Width 13.7 11.0-15.5 % Platelet Count 80 L 130-400 K/uL Mean Platelet Volume 11.4 H 7.5-10.5 fL Immature Granulocyte % (Auto) 0.4 0-1 % Neutrophils (%) (Auto) 68.6 40.0-77.0 % Lymphocytes (%) (Auto) 15.2 L 21.0-51.0 % Monocytes (%) (Auto) 13.8 H 3.0-13.0 % Eosinophils (%) (Auto) 1.6 0.0-8.0 % Basophils (%) (Auto) 0.4 0.0-5.0 % Neutrophils # (Auto) 5.1 1.8-7.7 K/uL Lymphocytes # (Auto) 1.1 1.0-4.8 K/uL Monocytes # (Auto) 1.0 0.1-1.0 K/uL Eosinophils # (Auto) 0.12 0.00-0.70 K/uL Basophils # (Auto) 0.03 0.00-0.20 K/uL Absolute Immature Granulocyte (auto 0.03 0-1 K/uL Nucleated Red Blood Cells 0.0 0.0-0.19 % Sodium Level 141 136-145 mmol/L Potassium Level 3.7 3.5-5.1 mmol/L Chloride Level 106 101-111 mmol/L Carbon Dioxide Level 27 21-32 mmol/L Blood Urea Nitrogen 21 H 7-18 mg/dL Creatinine 1.4 H 0.5-1.0 mg/dL Glomerular Filtration Rate Calc 38 >90 mL/min Random Glucose 219 H 70-105 mg/dL Total Calcium 8.5 8.5-10.1 mg/dL Magnesium Level 1.80 1.80-2.40 mg/dL Total Bilirubin 0.5 0.2-1.0 mg/dL Aspartate Amino Transf (AST/SGOT) 40 H 10-37 U/L Alanine Aminotransferase (ALT/SGPT) 42 12-78 U/L Alkaline Phosphatase 149 H 50-136 U/L Total Protein 6.4 6.0-8.3 g/dL Albumin 2.4 L 3.5-5.0 g/dL Whole Blood Glucose 245 H 70-110 MG/DL Bedside Glucose Comment Notified Nurse Lactic Acid Level 1.2 0.8-2.5 mmol/L Ammonia 18 11-32 umol/L Vitamin B12 Level 705 193-986 pg/mL Current Medications Medications (Trade) Dose Ordered Sig/Isauro Route PRN Reason Start Time Stop Time Status Last Admin Dose Admin Acetaminophen (TYLenol 325MG TAB) 650 mg Q6H PRN PO TEMPERATURE GREATER THAN 101.5 03/13/25 04:30 04/12/25 04:29 Acetaminophen/ Hydrocodone Bitart (NORco 5/325MG) 1 tab Q4H PRN PO MODERATE PAIN (4-6) 03/14/25 11:30 03/19/25 11:29 Amlodipine Besylate (NorvASC 5MG TAB) 5 mg DAILY PO 03/15/25 09:00 04/14/25 08:59 03/16/25 09:36 5 MG Atorvastatin Calcium (LIPItor 20MG) 20 mg HS PO 03/14/25 21:00 04/13/25 20:59 03/16/25 21:48 20 MG Atorvastatin Calcium (LIPItor 40MG) 40 mg HS PO 03/13/25 21:00 03/14/25 11:42 DC 03/13/25 21:39 40 MG Ceftriaxone Sodium (ROCEphine 1G INJ) 1 gm Q24H IVPB 03/14/25 10:00 03/14/25 13:15 DC 03/14/25 11:19 1 GM Citalopram Hydrobromide (CeleXA 20MG TAB) 20 mg HS PO 03/14/25 21:00 04/13/25 20:59 03/16/25 21:48 20 MG Daptomycin 500 mg/ Sodium Chloride 50 ml @ 100 mls/hr Q24H IV 03/15/25 15:00 03/25/25 14:59 03/16/25 17:22 100 MLS/HR Famotidine (Pepcid 20mg Tab) 20 mg DAILY PO 03/13/25 09:00 03/14/25 10:02 DC 03/13/25 09:04 20 MG Furosemide (LASix 20MG TAB) 20 mg BID@,17 PO 03/15/25 17:00 03/15/25 15:28 DC Furosemide (LASix 20MG TAB) 20 mg DAILY PO 03/15/25 09:00 03/15/25 14:31 DC Furosemide (LASix 40MG TAB) 40 mg DAILY PO 03/16/25 09:00 04/15/25 08:59 03/16/25 09:37 40 MG Hydralazine HCl (APRESOLine 20MG INJ) 5 mg Q6H PRN IV ADMINISTER FOR SBP > 160 03/14/25 10:00 03/15/25 08:35 DC 03/14/25 18:23 5 MG Hydralazine HCl (APRESOLine 20MG INJ) 10 mg Q6H PRN IV For:SBP above 160;DBP above 90 03/13/25 04:30 03/14/25 09:58 DC 03/14/25 03:46 10 MG Hydralazine HCl ([id number] TAB) 25 mg Q8H PO 03/16/25 17:00 04/15/25 16:59 03/17/25 01:59 25 MG Hydralazine HCl ([id number] TAB) 25 mg TID PO 03/13/25 12:30 03/16/25 10:23 DC 03/16/25 09:35 25 MG Insulin Glargine (LANtus 100 UNITS/ML 10 ML VIAL) 10 units HS SQ 03/14/25 21:00 04/13/25 20:59 03/16/25 21:54 10 UNITS Insulin Human Regular (humuLIN R 100 UNIT/ML 3ML) INSULIN SLIDING SCAL... ACHS SQ 03/13/25 07:30 04/12/25 07:29 03/17/25 06:16 4 UNIT Iron Sucrose (VenoFER) 100 mg DAILY IV 03/14/25 09:00 03/14/25 09:58 DC 03/14/25 09:21 100 MG Iron Sucrose (VenoFER) 200 mg DAILY IV 03/15/25 09:00 03/16/25 09:01 DC 03/16/25 16:45 200 MG Lactulose (Constulose 20gm/ 30ml Udcup) 20 gm BID PRN PO CONSTIPATION 03/13/25 03:30 04/12/25 03:29 Levothyroxine Sodium (SYNTHroid 100MCG TAB) 200 mcg SYN PO 03/15/25 06:30 04/14/25 06:29 03/17/25 06:15 200 MCG Losartan Potassium (CozAAR 25MG TAB) 25 mg BID PO 03/13/25 21:00 03/13/25 12:08 DC Losartan Potassium (CozAAR 50 mg TAB) 50 mg BID PO 03/13/25 21:00 04/12/25 20:59 03/16/25 21:48 50 MG Meropenem (Merrem 1gm) 1 gm Q12H IVPB 03/15/25 14:00 03/15/25 14:57 DC Meropenem (Merrem 1gm) 1 gm Q12H IVPB 03/15/25 16:00 03/25/25 15:59 03/17/25 03:28 1 GM Metoprolol Tartrate (loprESSOR) 25 mg BID PO 03/14/25 10:00 03/15/25 08:28 DC 03/14/25 20:03 25 MG Metoprolol Tartrate (loprESSOR) 50 mg BID PO 03/15/25 09:00 04/14/25 08:59 03/16/25 21:48 50 MG Mirtazapine (REMeron 15 MG TAB) 15 mg HS PO 03/14/25 21:00 04/13/25 20:59 03/16/25 21:48 15 MG Miscellaneous Medication (Lactulose (Constulose)) 20 ml BID PRN PO constipation 03/14/25 11:30 03/14/25 11:40 DC Morphine Sulfate (morPHINE 2MG SYG) 2 mg Q4H PRN IVP SEVERE PAIN (7-10) 03/13/25 04:30 03/13/25 09:51 DC Morphine Sulfate (morPHINE 2MG SYG) 2 mg Q4H PRN IVP SEVERE PAIN (7-10) 03/14/25 00:30 03/21/25 00:29 03/17/25 03:28 2 MG Nicardipine HCl 25 mg/Sodium Chloride 250 ml @ 0 mls/hr PROTOCOL IV 03/14/25 18:30 03/15/25 21:20 DC 03/15/25 12:23 25 MLS/HR Octreotide Acetate 1250 mcg/ Sodium Chloride 250 ml @ 0 mls/hr PROTOCOL IV 03/14/25 10:00 03/16/25 15:03 DC 03/14/25 21:19 5 MLS/HR Ondansetron HCl (zoFRAN 4MG INJ) 4 mg Q6H PRN IV NAUSEA/VOMITING 03/13/25 04:30 04/12/25 04:29 03/16/25 01:11 4 MG Pantoprazole Sodium (PROTonix 40MG INJ) 40 mg BID IVP 03/15/25 21:00 04/14/25 20:59 03/16/25 21:48 40 MG Pantoprazole Sodium 80 mg/ Sodium Chloride 100 ml @ 10 mls/hr Q10H IV 03/14/25 10:00 03/15/25 14:03 DC 03/15/25 10:19 10 MLS/HR Pharmacy Profile Note (Pharmacy Communication) 1 each ONCE MISC 03/15/25 12:30 03/15/25 13:09 DC Piperacillin Sod/ Tazobactam Sod (Zosyn 3.375gm+NS 50ml) 3.375 gm Q8H IV 03/14/25 13:30 03/15/25 12:22 DC 03/15/25 04:50 3.375 GM Spironolactone (Aldactone 25mg) 50 mg BID PO 03/15/25 21:00 03/16/25 07:49 DC 03/15/25 20:04 50 MG Spironolactone (Aldactone 25mg) 50 mg DAILY PO 6/17/25 15:30 04/14/25 15:29 03/16/25 09:35 50 MG DIAGNOSTICS / RADIOLOGY: [ ] ASSESSMENT: Sepsis, POA UTI secondary to Enterococcus faecium and E coli ESBL Liver cirrhosis, POA Moderate ascites, POA Status post ultrasound-guided paracentesis 03/14/2025 with removal of 3.5 L of yellowish fluid Acute GI bleed, POA Iron deficiency anemia, POA Moderate malnutrition, POA Hypertensive urgency, POA Uncontrolled diabetes mellitus type 2 PLAN: 79-year-old female, initially admitted with the abdominal pain, CT abdomen and pelvis shows cirrhotic liver and moderate ascites, status post paracentesis removal of 3.5 L yellowish fluid, patient also with occult blood positive, EGD done 03/15/2025, acute gastritis, congestive gastropathy, congested duodenal mucosa, esophageal ulcer with no bleeding and no stigmata of recent bleeding, small esophageal varices. Colonoscopy done 03/16/2025, patient remains admitted to the medical floor, blood pressure 168/80, afebrile, saturating 93% on 3 L nasal cannula, hemoglobin stable 10.2, hematocrit 30.8, platelet count of 80. Urine culture positive Enterococcus faecium and E coli ESBL. Patient to continue meropenem and daptomycin IV, continue to follow infectious disease input and recommendation. EGD done 03/15/2025, tolerated the procedure well, impression as follows: -acute gastritis -congestive gastropathy -congested duodenal mucosa -esophageal ulcer with no bleeding and no stigmata of recent bleeding -esophagogastric landmarks identified. -small (less than 5 mm) esophageal varices. -no specimens collected. Recommendations: -clear liquid diet -follow an anti-reflux regimen daily, use Protonix 40 mg p.o. b.i.d. for eight weeks -plan for colonoscopy NEURO: Minimize central acting medications as possible. Fall Precautions. Well lighted room through the day and minimize interruptions through the night to prevent acute delirium. PULMONARY: Supplemental 02 as needed BiPAP as necessary, for respiratory distress Titrate Fio2 to keep Spo2 > or = 90% DuoNebs and CPT as needed IS hourly while awake for pulmonary hygiene prn Out of bed to chair as tolerated Maintain aspiration precautions at all times CARDIOVASCULAR: Follow hemodynamics. Vital signs per facility protocol GI & NUTRITION: Continue nutritional support Aspirations precautions Prokinetic agents and laxatives as needed KIDNEYS & ELECTROLYTES: Strict monitoring of intake and output Daily weights Avoid nephrotoxic agents Monitor electrolytes and replace as needed Goal urine output of 30mL/hr or 0.5mL/kg/hr Medications to be dosed according to renal function. Avoid contrast if possible ENDOCRINE: Maintain blood glucose between 100-180 at all times. Insulin sliding scale for blood glucose management Hypoglycemia and hyperglycemia protocol in place INFECTIOUS DISEASE: Trend temperature, WBC and procalcitonin level Follow cultures, deescalate antibiotics as soon as possible. Panculture if new onset fever HEMATOLOGY & COAGULATION: Monitor H&H. Keep Hgb > 7 Transfuse 1 unit of PRBC for Hgb < 7 Transfuse 1 pack of platelets of platelets < 20, 000 Watch for any signs and symptoms of bleeding SKIN: Pressure ulcer prevention per facility protocol Specialty mattress as needed ORTHO/REHAB Continue PT/OT PRN: MEDICATIONS Tylenol 650 mg po every 4 hrs for fever zofran 4 mg IV every 6 hrs for n/v Hydralazine 5 mg IV every 4 hrs systolic pressure > 160 bowel regiment: lactulose 20 gm PO BID PRN constipation Supportive measures: Continue GI and DVT prophylaxis Disposition: Pending improvement in clinical condition All questions answered time spent: > 35 min MAURICE RONDON MD Mar 17, 2025 09:56
[2025-03-17 11:41] VITALS: BP 174/66; PULSE 67; RESP 18; TEMP 97.9
--- NOTE | 2025-03-17 11:45 | NUR ---
O2 TITRATED OFF. PATIENT NOT COMPLAINING OF SOB. MONITORED FOR 1 HOUR, SPO2 AT 93-95 WITHOUT O2.
--- NOTE | 2025-03-17 12:38 | DS ---
Discharge Summary Hospital Course Summary: Ms. Arias is an 79-year-old female that was seen and examined on 03/13/2025. Patient is a good historian of personal health Patient stated she came to the emergency department with a chief complaint of abdominal pain. Location is to bilateral upper quadrants. Duration is constant. Character is described as sharp. There was no alleviating factors. Symptoms are aggravated with movement. She denied any associated nausea or vomiting. CT abdomen and pelvis shows cirrhotic liver with volume loss plane, moderate ascites, abdominal and esophageal varices. Ultrasound abdomen showing cholecystectomy, not ductal dilatation, right kidney not visualized and can not be fully evaluated, no hydronephrosis seen left kidney. Patient admitted for further evaluation and medical management 03/14 patient admitted to the medical floor, BP 182/87, heart rate of 105, afebrile, saturating normal on room air, hemoglobin stable at 9.7, hematocrit 30.0, WBC 7.6, platelet count of 88, sodium 142, potassium 4.2, BUN of 25, creatinine 0.8, total calcium 8.6, phosphorus 3.1, magnesium 2.2, iron level 34, liver enzymes with a total bilirubin 0.7, AST of 43, ALT of 57, albumin 2.4 Patient remains admitted to the medical floor GI consultation requested, we will follow input and recommendation, patient scheduled for EGD today. We will start the patient on Protonix and octreotide drip CBC q.8 hours, transfuse 1 unit of PRBC if hemoglobin less than eight Start the patient on Venofer 200 mg IV daily for three days IR consultation requested for ultrasound-guided paracentesis, both diagnostic and therapeutic, fluid will be sent for analysis including cytology We will request dietitian consultation Start empiric antibiotics with Rocephin 1 g IV daily, follow results of urine culture and adjust antibiotics accordingly Add metoprolol 25 mg p.o. b.i.d. to current BP management, as well as hydralazine 5 mg IV every 6 hours as needed for SBP greater than 160 Chest x-ray and echocardiogram to evaluate ejection fraction Patient with a hemoglobin A1c of 8.1 continue insulin sliding scale, add Lantus 10 units subcutaneously at bedtime, continue to adjust as needed Home medications reviewed and reconciled 03/15 patient was upgraded to the ICU for Cardene drip, as the patient had yesterday a blood pressure greater than 200 systolic, patient had EGD done in the morning so blood pressure medication by mouth were on hold. Today BP 158 /57, afebrile, saturating 98% on room air. Patient on amlodipine 5 mg p.o. daily, metoprolol tartrate 50 mg p.o. b.i.d., furosemide 20 mg p.o. daily. CBC with a hemoglobin 10.6, hematocrit 33.7, WBC 7.8, with a platelet count of 89. Sodium 141, potassium 4.7, BUN of 20, creatinine 0.9, magnesium 2.0. Results of urine culture positive for Enterococcus faecium and E coli, ESBL, patient underwent successful ultrasound paracentesis 03/14/2025, with removal of 3.5 L of yellow fluid. Less than 2 cc of blood noted, patient tolerated the procedure well without complications, follow results of ascitic fluid culture, Patient currently on Zosyn IV. Infectious disease input noted and appreciated. Critical care consultation requested, follow input and recommendation. Echocardiogram done, reported as follows: Conclusion The LVEF is > 65%. 3D volume EF 68%. Mild concentric left ventricular hypertrophy. The left ventricle is normal size. indeterminate diastolic function Normal wall motion There is moderate aortic valvular stenosis. AoV pk gradient 43mmHg, mean gradient 24mmHg. AoV area 1.5cm. There is no pericardial effusion. Study quality was adequate During my visit the patient remains comfortably in bed, alert, following commands, she remains on Cardene drip, case discussed with the RN, no acute events overnight, home blood pressure medications already given. The patient is currently NPO, scheduled for EGD today. She remains on Protonix and octreotide drip. 03/16 patient downgraded from the ICU to the medical floor yesterday. Blood pressure 71/96, afebrile, saturating normal on room air, hemoglobin 9.7, hematocrit 31.0, white blood cell count 8.9, platelet count of 83, sodium 143, potassium 4.0, BUN of 21, creatinine 1.0, report of body fluid culture preliminary no growth at 24-35 hours, studies to continue. Plan for colonoscopy today. Patient evaluated by Infectious Disease, Zosyn IV discontinued, patient is started on meropenem and daptomycin IV. Input noted and appreciated. Patient's blood pressure remains moderately elevated, currently on furosemide 40 mg p.o. daily, Aldactone 50 mg p.o. daily, amlodipine 5 mg p.o. daily, metoprolol tartrate 50 mg p.o. b.i.d.. Patient also on losartan 50 mg p.o. b.i.d.. I will add hydralazine 25 mg p.o. q.8 hours. Case discussed with the RN, no acute events overnight, patient is scheduled for colonoscopy today. EGD done 03/15/2025, tolerated the procedure well, impression as follows: -acute gastritis -congestive gastropathy -congested duodenal mucosa -esophageal ulcer with no bleeding and no stigmata of recent bleeding -esophagogastric landmarks identified. -small (less than 5 mm) esophageal varices. -no specimens collected. Recommendations: -clear liquid diet -follow an anti-reflux regimen daily, use Protonix 40 mg p.o. b.i.d. for eight weeks -plan for colonoscopy 03/17 79-year-old female, initially admitted with the abdominal pain, CT abdomen and pelvis shows cirrhotic liver and moderate ascites, status post paracentesis removal of 3.5 L yellowish fluid, patient also with occult blood positive, EGD done 03/15/2025, acute gastritis, congestive gastropathy, congested duodenal mucosa, esophageal ulcer with no bleeding and no stigmata of recent bleeding, small esophageal varices. Colonoscopy done 03/16/2025, findings of internal hemorrhoids, patient remains admitted to the medical floor, blood pressure 168/80, afebrile, saturating 93% on 3 L nasal cannula, hemoglobin stable 10.2, hematocrit 30.8, platelet count of 80. Urine culture positive Enterococcus faecium and E coli ESBL. Patient to continue meropenem and daptomycin IV, continue to follow infectious disease input and recommendation. Patient remains comfortably in bed, alert oriented x3, no acute events overnight. We will like to be discharged home. Today patient evaluated by Infectious Disease, prescription given for meropenem and daptomycin IV to be done as an outpatient at [facility]. Patient already with midline in place. Case management consulted. Assessment/Plan: Final diagnosis Sepsis, POA UTI secondary to Enterococcus faecium and E coli ESBL Liver cirrhosis, POA Moderate ascites, POA Status post ultrasound-guided paracentesis 03/14/2025 with removal of 3.5 L of yellowish fluid Acute GI bleed, POA Iron deficiency anemia, POA Moderate malnutrition, POA Hypertensive urgency, POA Uncontrolled diabetes mellitus type 2 Discharge Instructions: Patient to be discharged home today, to follow with PCP, GI and ID as an out patient and to return to the hospital if condition changes, patient agreed with plan and understood the information provided. Home Medications: Reported Medications Atorvastatin Calcium (Atorvastatin Calcium) 20 Mg Tablet, 1 TAB PO DAILY 03/13/25 Nifedipine (Nifedipine ER) 90 Mg Tablet.er, 1 TAB PO DAILY 03/13/25 Lactulose (Constulose) 10 Gram/15 Ml Solution, 20 ML PO BID PRN for constipation 03/13/25 Escitalopram Oxalate (Escitalopram Oxalate) 10 Mg Tablet, 1 TAB PO HS for depressive disorder 03/13/25 Hydralazine HCl (Apresoline) 25 Mg Tab, 3 TAB PO DAILY 03/13/25 Furosemide (Furosemide) 20 Mg Tablet, 1 TAB PO DAILY for swelling 03/13/25 Levothyroxine Sodium (Levothyroxine Sodium) 200 Mcg Tablet, 1 TAB PO DAILY for disorder of thyroid gland 03/13/25 Losartan Potassium (Losartan Potassium) 50 Mg Tablet, 1 TAB PO BID 03/13/25 Hydrocodone/Acetaminophen (Hydrocodon-Acetaminophen 5-325) 5 Mg-325 Mg Tablet, 1 TAB PO 5X/DAY PRN for SEVERE PAIN 03/13/25 Mirtazapine (Mirtazapine) 15 Mg Tablet, 1 TAB PO HS for insomnia 03/13/25 Insulin Aspart (Insulin Aspart Flexpen) 100 Unit/Ml (3 Ml) Insuln.pen, 10 UNITS SQ TID 03/13/25 Diphenoxylate HCl/Atropine (Diphenoxylate-Atropine Tablet) 2.5 Mg-0.025 Mg Tablet, 1 TAB PO TIDP PRN for diarrhea 03/13/25 Time spent arranging discharge: 31-60 minutes MAURICE RONDON MD Mar 17, 2025 12:38
[2025-03-17] MEDS ORDERED: SPIR25TA6 PO (12:40)
[2025-03-17] MEDS ORDERED: FURO40TA7 PO (12:40)
[2025-03-17] MEDS ORDERED: PANT40TA55 PO (12:41)
[2025-03-17 15:55] VITALS: BP 157/70; PULSE 73; RESP 18; TEMP 98
[2025-03-17] MEDS: hydrALAZine 25MG TABLET PO SCH (17:47)
--- NOTE | 2025-03-17 18:23 | NUR ---
PATIENT DISCHARGED. EXPLAINED APPOINTMEBNT INFORMATION WITH [facility] TOMORROW. TELEMONITOR REMOVED. ALL PERSONAL BELONINGINGS GATHERED BY PATIENT. ALL QUESTIONS AND CONCERNS ANSWERED.
--- NOTE | 2025-03-17 20:41 | PN ---
[facility] PROGRESS NOTE Date Patient Seen: Mar 17, 2025 Time of Visit: 20:41 Supervising Physician: Dr. Lazaro Rueda Primary Care Physician: [Jaison Gibson MD ] Outpatient Specialists: [ ] Inpatient Consults: [DR Watkins, DR Cardozo, ] Attending physician: Jefry PROBLEM LIST: Sepsis, POA Hypertensive Urgency POA Requiring cardene gtt Moderate aortic valve stenosis on 2D echo 03/14/25 with LVEF > 65% Acute complicated cystitis secondary to Enterococcus faecium and E coli ESBL Liver cirrhosis, POA MELD Score of 7 (<2% risk of three months mortality) Moderate ascites, POA S/P ultrasound-guided paracentesis 03/14/2025 with removal of 3.5 L of yellowish fluid (SBP ruled out) Abdominal Esophageal varices POA Acute GI bleed, POA Iron deficiency anemia, POA Moderate malnutrition, POA Uncontrolled diabetes mellitus type 2 Mild small bowel dilation on KUB 03/14/25 Obesity BMI of 37.6 INTERVAL HISTORY: Patient is seen at bedside today, she is currently on room air, AAO x3. Patient denies any overnight events for nausea or vomiting episodes. Patient bowel regimen has been regular. Her vitals are within normal limits today and blood pressure is improved. She remains on meropenem at this time with tox being discharged by primary today. She is cleared from a pulmonary and critical Care perspective, thank you for allowing us to participate in the care of this patient. REVIEW OF SYSTEMS: 12 point ROS reviewed with patient. Pertinent positives mentioned above. Otherwise negative. PHYSICAL EXAM: GENERAL: alert, weak, awake oriented x 3 HEENT: EOMI, Sclera non icteric, moist mucosa NECK: Supple, no JVD, trachea midline LUNGS: Diminished breath sounds bilaterally. No wheezes HEART: Regular rate and rhythm. Normal S1 and S2, without murmurs ABD: Abdomen soft, nontender. Bowel sounds present EXT: No clubbing cyanosis, swelling to BLE , anasarca NEURO: Alert and oriented to person, follows commands Vital Signs (last 8hr) Date Time Temp Pulse Resp B/P (MAP) Pulse Ox O2 Delivery O2 Flow Rate FiO2 03/17/25 15:55 98.1 73 18 157/70 95 Room Air LABS: Hematology Labs: Test 03/17/25 06:33 Range/Units White Blood Count 7.4 4.8-10.8 K/uL Red Blood Count 3.19 L 4.00-5.50 MIL/uL Hemoglobin 10.2 L 12.0-16.0 g/dL Hematocrit 30.8 L 36-48 % Mean Corpuscular Volume 96.6 79-99 fL Mean Corpuscular Hemoglobin 32.0 27.0-33.0 pg Mean Corpuscular Hemoglobin Concent 33.1 32.0-36.0 g/dL Red Cell Distribution Width 13.7 11.0-15.5 % Platelet Count 80 L 130-400 K/uL Mean Platelet Volume 11.4 H 7.5-10.5 fL Immature Granulocyte % (Auto) 0.4 0-1 % Neutrophils (%) (Auto) 68.6 40.0-77.0 % Lymphocytes (%) (Auto) 15.2 L 21.0-51.0 % Monocytes (%) (Auto) 13.8 H 3.0-13.0 % Eosinophils (%) (Auto) 1.6 0.0-8.0 % Basophils (%) (Auto) 0.4 0.0-5.0 % Neutrophils # (Auto) 5.1 1.8-7.7 K/uL Lymphocytes # (Auto) 1.1 1.0-4.8 K/uL Monocytes # (Auto) 1.0 0.1-1.0 K/uL Eosinophils # (Auto) 0.12 0.00-0.70 K/uL Basophils # (Auto) 0.03 0.00-0.20 K/uL Absolute Immature Granulocyte (auto 0.03 0-1 K/uL Nucleated Red Blood Cells 0.0 0.0-0.19 % Chemistry Labs: Test 03/17/25 15:13 03/17/25 06:33 03/17/25 05:13 03/16/25 04:11 Range/Units Whole Blood Glucose 244 H 70-110 MG/DL Sodium Level 141 136-145 mmol/L Potassium Level 3.7 3.5-5.1 mmol/L Chloride Level 106 101-111 mmol/L Carbon Dioxide Level 27 21-32 mmol/L Blood Urea Nitrogen 21 H 7-18 mg/dL Creatinine 1.4 H 0.5-1.0 mg/dL Glomerular Filtration Rate Calc 38 >90 mL/min Random Glucose 219 H 70-105 mg/dL Total Calcium 8.5 8.5-10.1 mg/dL Magnesium Level 1.80 1.80-2.40 mg/dL Total Bilirubin 0.5 0.2-1.0 mg/dL Aspartate Amino Transf (AST/SGOT) 40 H 10-37 U/L Alanine Aminotransferase (ALT/SGPT) 42 12-78 U/L Alkaline Phosphatase 149 H 50-136 U/L Total Protein 6.4 6.0-8.3 g/dL Albumin 2.4 L 3.5-5.0 g/dL Bedside Glucose Comment Notified Nurse Lactic Acid Level 1.2 0.8-2.5 mmol/L Ammonia 18 11-32 umol/L Vitamin B12 Level 705 193-986 pg/mL DIAGNOSTICS / RADIOLOGY RESULTS: [ ] PLAN NEURO: Minimize central acting medications as possible. Maintain fall precautions, adequate lighting during the day PULMONARY: Supplemental 02 as needed. Maintain aspiration precautions at all times CARDIOVASCULAR: Follow hemodynamics. Vital signs per facility protocol GI & NUTRITION: Continue with nutritional support. Continue stool softeners and laxatives as needed. KIDNEYS & ELECTROLYTES: Strict monitoring of intake, output and overall fluid balance. Avoid nephrotoxic medications to the extent possible. Medications to be dosed according to renal function. Monitor electrolytes and replace as needed ENDOCRINE: Maintain blood glucose between 100-180 at all times. Hypoglycemia protocol in place INFECTIOUS DISEASE: Trend temperature, WBC and procalcitonin level Follow cultures, deescalate antibiotics as soon as possible. Panculture if new onset fever ONCOLOGY/HEMATOLOGY/COAGULATION: Monitor for s/s of bleeding Monitor hemoglobin, coagulation studies as needed SKIN: Pressure ulcer prevention per facility protocol Specialty mattress ORTHO/REHAB: Continue PT/OT Prophylaxis: Continue GI and DVT prophylaxis Code Status: Full Resuscitation Disposition: TBD Other: Total patient care time exceeds 35 minutes excluding all procedures. EDEN VARGHESE Mar 17, 2025 20:41
--- NOTE | 2025-03-17 23:55 | PN ---
INFECTIOUS DISEASE PROGRESS NOTE Date of Service: Mar 16, 2025 SUBJECTIVE: Patient was seen and examined at bedside. Patient is awake, alert and oriented x3. Patient's final urine culture results came back positive for ESBL, Enterococcus faecium and E coli. Patient is afebrile, temperature 98.1 and a WBC of 8.9. We will continue Meropenem 1 g IV every 12 hours and daptomycin 500 mg IV Q 24 hours. We will continue to follow patient's care. PHYSICAL EXAM EYES: Anicteric. Pupils equal and reactive. HENT: No oral thrush seen, moist Oral mucosa NECK: Supple, no JVD or thyromegaly. LUNGS: Good air entry. No rales, no rhonchi. CARDIOVASCULAR: S1, S2 regular. No murmur heard. ABDOMEN: Soft, non tender, bowel sounds present, no organomegaly CENTRAL NERVOUS SYSTEM: Awake, alert, oriented x 3. No focal deficits. SKIN: No rashes, no swelling. LYMPHATICS: No peripheral lymphadenopathy MUSCULOSKELETAL: No joint swelling, erythema or tenderness. EXTREMITIES: No cyanosis or clubbing BACK: No deformity, no pressure ulcer. GENITOURINARY: No dysuria or hematuria Vital Sign (Last 12 Hours) 03/17/25 15:55 Temp 98.1 Pulse 73 Resp 18 B/P (MAP) 157/70 Pulse Ox 95 O2 Delivery Room Air Intake & Output (last 24hrs) 03/16/25 03/16/25 03/17/25 15:00 23:00 07:00 Intake Total 25.0 ml 220 ml Output Total 0 ml 100 ml Balance 25.0 ml 220 ml -100 ml LABS: Laboratory: Test 03/17/25 15:13 03/17/25 06:33 03/17/25 05:13 03/16/25 04:11 Range/Units Whole Blood Glucose 244 H 70-110 MG/DL White Blood Count 7.4 4.8-10.8 K/uL Red Blood Count 3.19 L 4.00-5.50 MIL/uL Hemoglobin 10.2 L 12.0-16.0 g/dL Hematocrit 30.8 L 36-48 % Mean Corpuscular Volume 96.6 79-99 fL Mean Corpuscular Hemoglobin 32.0 27.0-33.0 pg Mean Corpuscular Hemoglobin Concent 33.1 32.0-36.0 g/dL Red Cell Distribution Width 13.7 11.0-15.5 % Platelet Count 80 L 130-400 K/uL Mean Platelet Volume 11.4 H 7.5-10.5 fL Immature Granulocyte % (Auto) 0.4 0-1 % Neutrophils (%) (Auto) 68.6 40.0-77.0 % Lymphocytes (%) (Auto) 15.2 L 21.0-51.0 % Monocytes (%) (Auto) 13.8 H 3.0-13.0 % Eosinophils (%) (Auto) 1.6 0.0-8.0 % Basophils (%) (Auto) 0.4 0.0-5.0 % Neutrophils # (Auto) 5.1 1.8-7.7 K/uL Lymphocytes # (Auto) 1.1 1.0-4.8 K/uL Monocytes # (Auto) 1.0 0.1-1.0 K/uL Eosinophils # (Auto) 0.12 0.00-0.70 K/uL Basophils # (Auto) 0.03 0.00-0.20 K/uL Absolute Immature Granulocyte (auto 0.03 0-1 K/uL Nucleated Red Blood Cells 0.0 0.0-0.19 % Sodium Level 141 136-145 mmol/L Potassium Level 3.7 3.5-5.1 mmol/L Chloride Level 106 101-111 mmol/L Carbon Dioxide Level 27 21-32 mmol/L Blood Urea Nitrogen 21 H 7-18 mg/dL Creatinine 1.4 H 0.5-1.0 mg/dL Glomerular Filtration Rate Calc 38 >90 mL/min Random Glucose 219 H 70-105 mg/dL Total Calcium 8.5 8.5-10.1 mg/dL Magnesium Level 1.80 1.80-2.40 mg/dL Total Bilirubin 0.5 0.2-1.0 mg/dL Aspartate Amino Transf (AST/SGOT) 40 H 10-37 U/L Alanine Aminotransferase (ALT/SGPT) 42 12-78 U/L Alkaline Phosphatase 149 H 50-136 U/L Total Protein 6.4 6.0-8.3 g/dL Albumin 2.4 L 3.5-5.0 g/dL Bedside Glucose Comment Notified Nurse Lactic Acid Level 1.2 0.8-2.5 mmol/L Ammonia 18 11-32 umol/L Vitamin B12 Level 705 193-986 pg/mL DIAGNOSTICS / RADIOLOGY: PATIENT: MOISÉS SHUKLA ACCT: [id number] LOC: [facility] U: [id number] AGE/SX: 79/F ROOM: [facility] RE03/13/[address]: ARIEL CROSS MD : 1945 BED: 1 DIS: STATUS: ADM IN TLOC: SPEC: [id number] KAYDEN: 03/13/25 STATUS: COMP REQ: [id number] RECD: 03/14/[address] [facility] [address]: LIA [facility] SOURCE: [facility] [place] 03/14/[address] [facility] [address]: ARIEL CROSS MD SPDESC: CLEAN CAT STANLEY BALDERAS MD ORDERED: AERO ID & SENS Procedure Result Nohelia Date-Time AEROBIC ID & SENSITIVITIES Final 03/15/25 [facility] EXTENDED SPECTRUM BETA-LACTAMASE ORGANISM IDENTIFIED. CRITICAL RESULT WAS CALLED BY [facility] ON 03/15/25 AT 0614. CRITICAL VALUES WERE READ BACK AND ACKNOWLEDGED BY MAXIME MALDONADO [place] [place] COLONY DESCRIPTION: DAY 1: COLONY COUNT: >100,000 CFU/ML GRAM NEGATIVE RODS IDENTIFICATION AND SENSITIVITY TO FOLLOW ISOLATE #2: COLONY COUNT: >100,000 CFU/ML GRAM POSITIVE COCCI IN CHAINS . IDENTIFICATION AND SENSITIVITY TO FOLLOW COMMENTS(R): ESBL ENTEROCOCCUS FAECIUM ESCHERICHIA COLI E FAECIUM E COLI M.I.C. RX M.I.C. RX --------- ---- --------- ---- AMPICILLIN >8 R >16 R* AZTREONAM 16 ESBL CEFAZOLIN >16 R* CEFTAZIDIME 4 ESBL CEFTAZIDIME/AVIBACTAM <=8 S CEFTRIAXONE >2 ESBL CIPROFLOXACIN >2 R GENTAMICIN <=2 S LEVOFLOXACIN >4 R VANCOMYCIN <=0.5 S NITROFURANTOIN <=32 S <=32 S GENTAMICIN Synergy Screen >500 R MEROPENEM <=1 S PENICILLIN >8 R PIPERACILLIN/TAZOBACTAM 32 R STREPTOMYCIN Synergy Screen >1000 R TRIMETHOPRIM/SUFLAMETHOXAZOLE >2/38 R ASSESSMENT: Urinary tract infection with Enterococcus faecium and E coli. Infection with multidrug resistant organism. Esophageal varices. Ascites status post paracentesis on 03/14/2025 with 3.5 L removed. Thrombocytopenia. PLAN: Continue Meropenem. Continue daptomycin. Continue pain management. Continue diuretics. Continue Protonix. Continue antidiabetics. We will monitor electrolytes. This case was reviewed and discussed with my supervising physician and the above assessment and plan was formulated and agreed upon. ATTESTATION BY PHYSICIAN I have seen and examined the patient. I reviewed the documentation, medical decision making, and treatment plan as noted by the mid-level provider above. I agree with the findings and plan of care. LIZET MAYS MD, MIRTA L [facility] Mar 17, 2025 23:55
--- NOTE | 2025-03-17 23:55 | PN ---
INFECTIOUS DISEASE PROGRESS NOTE Date of Service: Mar 17, 2025 SUBJECTIVE: This is a 79-year-old female patient who was seen and examined at bedside in room 310. Patient is afebrile this morning, temperature is 98.6. Patient will need outpatient IV antibiotics. We will Place midline and have Case management evaluate patient for referral to [facility] for outpatient IV antibiotics with Meropenem and daptomycin x 10 days. PHYSICAL EXAM EYES: Anicteric. Pupils equal and reactive. HENT: No oral thrush seen, moist Oral mucosa. NECK: Supple, no JVD or thyromegaly. LUNGS: Good air entry. No rales, no rhonchi. CARDIOVASCULAR: S1, S2 regular. No murmur heard. ABDOMEN: Soft, non tender, bowel sounds present, no organomegaly. CENTRAL NERVOUS SYSTEM: Awake, alert, oriented x 3. SKIN: No rashes, no swelling. LYMPHATICS: No peripheral lymphadenopathy. MUSCULOSKELETAL: No joint swelling, erythema or tenderness. EXTREMITIES: No cyanosis or clubbing. BACK: No deformity, no pressure ulcer. GENITOURINARY: No dysuria or hematuria. Vital Sign (Last 12 Hours) 03/17/25 15:55 Temp 98.1 Pulse 73 Resp 18 B/P (MAP) 157/70 Pulse Ox 95 O2 Delivery Room Air Intake & Output (last 24hrs) 03/16/25 03/16/25 03/17/25 15:00 23:00 07:00 Intake Total 25.0 ml 220 ml Output Total 0 ml 100 ml Balance 25.0 ml 220 ml -100 ml LABS: Laboratory: Test 03/17/25 15:13 03/17/25 06:33 03/17/25 05:13 03/16/25 04:11 Range/Units Whole Blood Glucose 244 H 70-110 MG/DL White Blood Count 7.4 4.8-10.8 K/uL Red Blood Count 3.19 L 4.00-5.50 MIL/uL Hemoglobin 10.2 L 12.0-16.0 g/dL Hematocrit 30.8 L 36-48 % Mean Corpuscular Volume 96.6 79-99 fL Mean Corpuscular Hemoglobin 32.0 27.0-33.0 pg Mean Corpuscular Hemoglobin Concent 33.1 32.0-36.0 g/dL Red Cell Distribution Width 13.7 11.0-15.5 % Platelet Count 80 L 130-400 K/uL Mean Platelet Volume 11.4 H 7.5-10.5 fL Immature Granulocyte % (Auto) 0.4 0-1 % Neutrophils (%) (Auto) 68.6 40.0-77.0 % Lymphocytes (%) (Auto) 15.2 L 21.0-51.0 % Monocytes (%) (Auto) 13.8 H 3.0-13.0 % Eosinophils (%) (Auto) 1.6 0.0-8.0 % Basophils (%) (Auto) 0.4 0.0-5.0 % Neutrophils # (Auto) 5.1 1.8-7.7 K/uL Lymphocytes # (Auto) 1.1 1.0-4.8 K/uL Monocytes # (Auto) 1.0 0.1-1.0 K/uL Eosinophils # (Auto) 0.12 0.00-0.70 K/uL Basophils # (Auto) 0.03 0.00-0.20 K/uL Absolute Immature Granulocyte (auto 0.03 0-1 K/uL Nucleated Red Blood Cells 0.0 0.0-0.19 % Sodium Level 141 136-145 mmol/L Potassium Level 3.7 3.5-5.1 mmol/L Chloride Level 106 101-111 mmol/L Carbon Dioxide Level 27 21-32 mmol/L Blood Urea Nitrogen 21 H 7-18 mg/dL Creatinine 1.4 H 0.5-1.0 mg/dL Glomerular Filtration Rate Calc 38 >90 mL/min Random Glucose 219 H 70-105 mg/dL Total Calcium 8.5 8.5-10.1 mg/dL Magnesium Level 1.80 1.80-2.40 mg/dL Total Bilirubin 0.5 0.2-1.0 mg/dL Aspartate Amino Transf (AST/SGOT) 40 H 10-37 U/L Alanine Aminotransferase (ALT/SGPT) 42 12-78 U/L Alkaline Phosphatase 149 H 50-136 U/L Total Protein 6.4 6.0-8.3 g/dL Albumin 2.4 L 3.5-5.0 g/dL Bedside Glucose Comment Notified Nurse Lactic Acid Level 1.2 0.8-2.5 mmol/L Ammonia 18 11-32 umol/L Vitamin B12 Level 705 193-986 pg/mL ASSESSMENT: Urinary tract infection with Enterococcus faecium and E coli. Infection with multidrug resistant organism. Esophageal varices. Ascites s/p paracentesis on 03/14/2025 with 3.5 L removed. Thrombocytopenia. PLAN: Continue Meropenem. Continue daptomycin. Place midline. Case management evaluation for referral to [facility] for outpatient IV antibiotics with Meropenem and daptomycin x 10 days. This case was reviewed and discussed with my supervising physician and the above assessment and plan was formulated and agreed upon. ATTESTATION BY PHYSICIAN I have seen and examined the patient. I reviewed the documentation, medical decision making, and treatment plan as noted by the mid-level provider above. I agree with the findings and plan of care. LIZET MAYS MD, MIRTA L [facility] Mar 17, 2025 23:55
== END 2025-03-17 18:50 | disposition home or self-care (01) | DRG 871 ==
LOC: EDH 23:55 → EDHIP 03-13 03:02 → 3AH 03-13 21:09 → 2BH 03-14 18:17 → 3BH 03-16 04:36
PROVIDERS: ADMIT Internal Medicine; ATTEND Internal Medicine
PROC: 0W9G3ZZ Drainage of Peritoneal Cavity, Percutaneous Approach (ICD-10-PCS; principal; 2025-03-14)
PROC: 0DJ08ZZ Inspection of Upper Intestinal Tract, Via Natural or Artificial Opening Endoscopic (ICD-10-PCS; 2025-03-15)
PROC: 0DBH8ZX Excision of Cecum, Via Natural or Artificial Opening Endoscopic, Diagnostic (ICD-10-PCS; 2025-03-16)
PROC: 0DBP8ZX Excision of Rectum, Via Natural or Artificial Opening Endoscopic, Diagnostic (ICD-10-PCS; 2025-03-16)
DX: A41.9 Sepsis, unspecified organism (principal); I85.11 Secondary esophageal varices with bleeding; R18.8 Other ascites; N30.00 Acute cystitis without hematuria; E44.0 Moderate protein-calorie malnutrition; Z16.12 Extended spectrum beta lactamase (ESBL) resistance; K76.6 Portal hypertension; D50.9 Iron deficiency anemia, unspecified; E03.9 Hypothyroidism, unspecified; E78.5 Hyperlipidemia, unspecified; F02.80 Dementia in other diseases classified elsewhere, unspecified severity, without behavioral disturbance, psychotic disturbance, mood disturbance, and anxiety; G30.9 Alzheimer's disease, unspecified; I10 Essential (primary) hypertension; I16.0 Hypertensive urgency; F32.A Depression, unspecified; I25.10 Atherosclerotic heart disease of native coronary artery without angina pectoris; K21.9 Gastro-esophageal reflux disease without esophagitis; E11.40 Type 2 diabetes mellitus with diabetic neuropathy, unspecified; I35.0 Nonrheumatic aortic (valve) stenosis; B96.20 Unspecified Escherichia coli [E. coli] as the cause of diseases classified elsewhere; D63.8 Anemia in other chronic diseases classified elsewhere; M79.7 Fibromyalgia; B95.2 Enterococcus as the cause of diseases classified elsewhere; K31.89 Other diseases of stomach and duodenum; K74.69 Other cirrhosis of liver; E66.01 Morbid (severe) obesity due to excess calories; D12.8 Benign neoplasm of rectum; J44.9 Chronic obstructive pulmonary disease, unspecified; D12.0 Benign neoplasm of cecum; Z90.710 Acquired absence of both cervix and uterus; Z86.19 Personal history of other infectious and parasitic diseases; Z86.73 Personal history of transient ischemic attack (TIA), and cerebral infarction without residual deficits; Z83.3 Family history of diabetes mellitus; Z82.49 Family history of ischemic heart disease and other diseases of the circulatory system; Z82.3 Family history of stroke; Z80.0 Family history of malignant neoplasm of digestive organs; Z79.899 Other long term (current) drug therapy; Z79.4 Long term (current) use of insulin; Z88.2 Allergy status to sulfonamides; Z88.6 Allergy status to analgesic agent; Z88.8 Allergy status to other drugs, medicaments and biological substances; Z79.52 Long term (current) use of systemic steroids; Z79.891 Long term (current) use of opiate analgesic; Z68.34 Body mass index [BMI] 34.0-34.9, adult; Z99.81 Dependence on supplemental oxygen; Z90.49 Acquired absence of other specified parts of digestive tract
CPT/HCPCS: 36415; 43235; 45380; 49083; 71045; 74018; 74176; 76376; 76700; 80048; 80053; 80061; 81001; 82042; 82140; 82150; 82270; 82306; 82607; 82945; 82948; 83036; 83540; 83550; 83605; 83615; 83630; 83735; 84100; 84157; 84443; 85025; 85027; 85610; 85730; 87071; 87086; 87186; 87205; 89051; 93306; 93356; 93975; 99285; A4606; C1729; G0378; J0360; J0696; J0878; J1756; J1815; J1938; J2003; J2185; J2270; J2354; J2405; J2470; J2543; J2704; J3490; J7030; J7050; A4215; A4222; A4223; A4600; A4620